=== PATIENT | male | born 1960 | race Caucasian/White ===

== ENCOUNTER 2016-10-28 12:08 | Emergency (ER) | payer OTHER ==
[2016-10-28 12:19] VITALS: BMI 22.6
[2016-10-28] MEDS ORDERED: Multivitamin (MVI) 10 ML, Thiamine 100 MG, Folic Acid 1 MG in Sodium Chloride 0.9% 1,00... IV STA (13:16)
[2016-10-28 13:33] LABS: BASO # 0.1 K/uL (0.0-0.2); BASO % 0.9 % (0.0-2.0); EOS # 0.3 K/uL (0.0-0.7); EOS % 3.7 % (0.0-4.0); HEMATOCRIT 29.7 % (35.0-51.0); LYMPH # 1.5 K/uL (1.0-4.3); LYMPH % 20.1 % (20.0-40.0); MEAN CORPUSCULAR HEMOGLOBIN 34.8 pg (27.0-31.0); MEAN CORPUSCULAR HGB CONC 32.9 g/dL (33.0-37.0); MEAN PLATELET VOLUME 8.2 fL (7.2-11.7); MONO # 1.1 K/uL (0.0-0.8); MONO % 14.1 % (0.0-10.0); RED CELL DISTRIBUTION WIDTH 16.1 % (11.5-14.5); WHITE BLOOD COUNT 7.7 K/uL (4.8-10.8)
[2016-10-28 13:37] LABS: CHLORIDE 97 mmol/L (98-107); POTASSIUM 3.4 mmol/L (3.6-5.2); SODIUM 137 mmol/L (132-148)
[2016-10-28 13:38] LABS: MEAN CELL VOLUME 105.9 fL (80.0-94.0)
[2016-10-28 13:39] LABS: AST/SGOT 125 U/L (17-59); BILIRUBIN,TOTAL 1.8 mg/dL (0.2-1.3); CARBON DIOXIDE 26 mmol/L (22-30); GFR AFRICAN-AMERICAN > 60
[2016-10-28 13:40] LABS: ALKALINE PHOSPHATASE 415 U/L (38-126); ALT/SGPT 36 U/L (21-72); BLOOD UREA NITROGEN 10 mg/dL (9-20); CALCIUM 8.5 mg/dl (8.6-10.4); GLUCOSE,RANDOM 82 mg/dL (75-110); MAGNESIUM 1.4 mg/dL (1.6-2.3); PHOSPHOROUS 3.4 mg/dL (2.5-4.5); TOTAL PROTEIN 8.1 g/dL (6.3-8.3)
[2016-10-28 13:41] LABS: ALCOHOL SERUM 155 mg/dl (0-10)
[2016-10-28] MEDS ORDERED: Magnesium Sulfate 1 gm in D5W 1 GM/100 ML BAG IVPB ONE ×2 (14:25→15:01)
[2016-10-28 14:35] LABS: RBC URINE 4 /hpf (0-3); URINE BILIRUBIN 1+ (NEGATIVE); URINE BLOOD NEGATIVE (NEGATIVE); URINE COLOR Amber (YELLOW); URINE GLUCOSE (UA) NORMAL (Normal); URINE KETONE 1+ mg/dL (NEGATIVE); URINE LEUKOCYTE ESTERASE NEG Leu/uL (Negative); URINE PROTEIN 2+ mg/dL (NEGATIVE); WBC URINE 6 /hpf (0-5)
[2016-10-28] MEDS ORDERED: Potassium Chloride 20 mEq ER Tab PO STA (14:41)
[2016-10-28] MEDS ORDERED: Potassium Chloride 20 mEq ER Tab PO ONE (15:01)
--- NOTE | 2016-10-28 15:06 | C.PDOC ---
History Of Present Illness Pt c/o b/l LE weakness and tingling in b/l toes. Time Seen by Provider: 10/28/16 13:04 Chief Complaint (Nursing): Weakness/Neurological Deficit History Per: Patient, Family () Onset/Duration Of Symptoms: Days (about 2 months), Gradual Current Symptoms Are (Timing): Still Present Seizure Or Post-ictal Symptoms: None Possible Causative Factor(s): Recent Alcohol Fall Associated With With Symptoms: No Injury As Result Of Fall Severity: Moderate Additional History Per: Prior Records - Symptoms Of CVA Recent Head Trauma: No Past Medical History Reviewed: Historical Data, Nursing Documentation, Vital Signs Vital Signs: Last Vital Signs Temp 99.4 F 10/28/16 12:19 Pulse 77 10/28/16 12:19 Resp 16 10/28/16 12:19 BP 115/76 10/28/16 12:19 Pulse Ox 97 10/28/16 15:08 - Medical History PMH: Hepatitis (C) Other PMH: Alcohol abuse Surgical History: No Surg Hx - [facility] DETOXIFICATION SERVICES FOR SUBSTANCE ABUSE TREATMENT (03/20/16) Family History: States: Unknown Family Hx - Social History Hx Tobacco Use: Yes Hx Alcohol Use: Yes Hx Substance Use: No - Immunization History Hx Tetanus Toxoid Vaccination: Yes Hx Influenza Vaccination: No Hx Pneumococcal Vaccination: No Review Of Systems Except As Marked, All Systems Reviewed And Found Negative. Constitutional: Negative for: Fever Cardiovascular: Negative for: Chest Pain Respiratory: Negative for: Shortness of Breath Gastrointestinal: Negative for: Vomiting, Abdominal Pain Genitourinary: Negative for: Dysuria, Incontinence Musculoskeletal: Negative for: Neck Pain, Back Pain, Leg Pain Skin: Negative for: Rash Neurological: Positive for: Numbness (tingling in b/l toes). Negative for: Seizures, Headache Physical Exam - Physical Exam Appears: No Acute Distress, Other (AOB) Skin: Warm, Dry, No Rash Head: Atraumatic, Normacephalic Eye(s): bilateral: PERRL, EOMI Neck: Normal ROM, No Midline Cervical Tenderness, No Step Off Deformity, Supple Chest: Symmetrical, No Deformity Cardiovascular: Rhythm Regular Respiratory: Normal Breath Sounds, No Accessory Muscle Use Gastrointestinal/Abdominal: Soft, No Tenderness Back: No CVA Tenderness, No Vertebral Tenderness Extremity: Normal ROM, No Pedal Edema, No Calf Tenderness, Capillary Refill (wnl ) Pulses: Left Dorsalis Pedis: Normal, Right Dorsalis Pedis: Normal Neurological/Psych: Oriented x3, Normal Motor, Normal Sensation ED Course And Treatment - Laboratory Results Result Diagrams: 10/28/16 13:25 10/28/16 13:25 Interpretation Of Abnormal: Mild hypomagnesemia and anemia. O2 Sat by Pulse Oximetry: 97 Pulse Ox Interpretation: Normal Progress Note: Pt feels much better and wants to go home. I offered him detox admission, but he declined. Reassessment Condition: Improved Progress - Interventions Interventions:: Observation, Intravenous fluid - Medications Administered Oral: Other (KCl. ) Subcutaneous: other (B12) Intravenous: Other (Mg. MVI. ) - Data Reviewed Data Reviewed: Lab, Old records - Patient Status Patient status: Mostly improved - Continuity of Care Discussed patient case with:: Patient, Family-HIPPA compliant, ED Nurse - Patient Plan Patient Plan: Discharge, F/U with PCP Disposition Counseled Patient/Family Regarding: Studies Performed, Diagnosis, Need For Followup, Rx Given, Smoking Cessation - Disposition Referrals: Dorothy CROWLEY,MD [place] [Medical Doctor] - Disposition: HOME/ ROUTINE Disposition Time: 16:34 Condition: IMPROVED Additional Instructions: Quit drinking and smoking. Eat a healthy diet. Follow up with your doctor this week for further evaluation and treatment. Return to the ER if you develop worsening of symptoms or if you have any other concerns. Prescriptions: Multivit with Iron-Minerals [Centravites 50 Plus] 1 each PO DAILY #30 tablet Instructions: Abuse of Alcohol (ED) - Clinical Impression Clinical Impression: Alcohol abuse
[2016-10-28 16:51] VITALS: BP 133/96; PULSE 94; RESP 18; TEMP 98.6; O2SAT 99
== END 2016-10-28 16:58 | disposition home or self-care (01) ==
LOC: C.ER 12:08
DX: F10.10 Alcohol abuse, uncomplicated (principal); Y90.6 Blood alcohol level of 120-199 mg/100 ml; E83.42 Hypomagnesemia
CPT/HCPCS: 80053; 80320; 80324; 80345; 80346; 80349; 80353; 80358; 80361; 81001; 82607; 83735; 83992; 84100; 85025; 85610; 85730; 96365; 96372; 99285; J3411; J3420; J3475; J7040

== ENCOUNTER 2017-03-03 16:57 | Inpatient (IN) | payer MEDICAID, OTHER ==
[2017-03-03 16:57] VITALS: BMI 22.6
[2017-03-03 19:00] LABS: BASO % 0.5 % (0.0-2.0); EOS # 0.2 K/uL (0.0-0.7); EOS % 2.8 % (0.0-4.0); LYMPH # 1.3 K/uL (1.0-4.3); LYMPH % 17.8 % (20.0-40.0); MEAN CELL VOLUME 94.9 fL (80.0-94.0); MEAN CORPUSCULAR HEMOGLOBIN 32.6 pg (27.0-31.0); MEAN CORPUSCULAR HGB CONC 34.4 g/dL (33.0-37.0); MEAN PLATELET VOLUME 8.1 fL (7.2-11.7); MONO # 1.5 K/uL (0.0-0.8); MONO % 19.2 % (0.0-10.0); NRBC % 0.3 % (0.0-2.0); RED CELL DISTRIBUTION WIDTH 16.3 % (11.5-14.5); WHITE BLOOD COUNT 7.6 K/uL (4.8-10.8)
[2017-03-03 19:06] LABS: CHLORIDE 100 mmol/L (98-107); POTASSIUM 3.1 mmol/L (3.6-5.2); SODIUM 139 mmol/L (132-148)
[2017-03-03 19:08] LABS: ALB/GLOB RATIO 1.1 (1.0-2.1); AST/SGOT 54 U/L (17-59); BILIRUBIN,TOTAL 1.6 mg/dL (0.2-1.3); CARBON DIOXIDE 25 mmol/L (22-30); GFR AFRICAN-AMERICAN > 60; TOTAL PROTEIN 7.3 g/dL (6.3-8.3)
[2017-03-03 19:09] LABS: ALCOHOL SERUM < 10 mg/dl (0-10); ALKALINE PHOSPHATASE 220 U/L (38-126); ALT/SGPT 31 U/L (21-72); BLOOD UREA NITROGEN 22 mg/dL (9-20); GLUCOSE,RANDOM 102 mg/dL (75-110)
[2017-03-03] MEDS ORDERED: Multivitamin (MVI) 10 ML, Thiamine 100 MG, Folic Acid 1 MG in Sodium Chloride 0.9% 1,00... IV ONE (19:12)
--- NOTE | 2017-03-03 19:32 | C.PDOC ---
History Of Present Illness 56 y/o male with Hx of chronic alcoholism presents to ED accompanied by for frequent falls at home secondary to legs feeling weak. Patient states he cannot balance and has no strength in legs. Patient reports he drinks 1 pint daily for years but stopped drinking 10 days and reports he has lost 100lbs marycarmen year secondary to loss of appetite. No other complaints at this time. Time Seen by Provider: 03/03/17 19:02 Chief Complaint (Nursing): Weakness/Neurological Deficit History Per: Patient History/Exam Limitations: no limitations Onset/Duration Of Symptoms: Days Current Symptoms Are (Timing): Still Present Past Medical History Reviewed: Historical Data, Nursing Documentation, Vital Signs Vital Signs: Last Vital Signs Temp 98 F 03/03/17 22:16 Pulse 95 H 03/03/17 22:16 Resp 13 03/03/17 22:16 BP 103/70 03/03/17 22:16 Pulse Ox 99 03/03/17 22:16 - Medical History PMH: Hepatitis (C) Surgical History: No Surg Hx - [facility] DETOXIFICATION SERVICES FOR SUBSTANCE ABUSE TREATMENT (03/20/16) Family History: States: No Known Family Hx - Social History Hx Tobacco Use: Yes Hx Alcohol Use: Yes Hx Substance Use: No - Immunization History Hx Tetanus Toxoid Vaccination: Yes Hx Influenza Vaccination: No Hx Pneumococcal Vaccination: No Review Of Systems Except As Marked, All Systems Reviewed And Found Negative. Constitutional: Negative for: Fever, Chills Cardiovascular: Negative for: Chest Pain Respiratory: Negative for: Shortness of Breath Gastrointestinal: Negative for: Nausea, Vomiting Musculoskeletal: Positive for: Leg Pain Skin: Negative for: Rash Neurological: Positive for: Weakness Physical Exam - Physical Exam Appears: Non-toxic, No Acute Distress, Other (Cachetic, wasted) Skin: Warm, Dry, No Rash, Other (Sallow) Head: Atraumatic, Normacephalic Eye(s): bilateral: Normal Inspection Oral Mucosa: Moist Neck: Normal ROM, Supple Chest: Symmetrical Cardiovascular: Rhythm Regular, No Murmur Respiratory: Normal Breath Sounds, No Rales, No Rhonchi, No Wheezing Gastrointestinal/Abdominal: Soft, No Tenderness, No Guarding, No Rebound Extremity: Capillary Refill (<2 seconds), Other (minimal mass on lower extremities bilateraol, very thin) Neurological/Psych: Oriented x3 ED Course And Treatment - Laboratory Results Result Diagrams: 03/03/17 18:53 03/03/17 18:53 Lab Interpretation: Abnormal (+ anemia, mixed microcytic , from baseline 12 to 10 to 8 today.) O2 Sat by Pulse Oximetry: 100 (RA) Pulse Ox Interpretation: Normal - Radiology CXR: Interpreted by Me CXR Interpretation: Yes: No Acute Disease - CT Scan/US Abdominal US Other Rad Studies (CT/US): Read By Radiologist, Radiology Report Reviewed CT/US Interpretation: IMPRESSION: Fatty infiltration of an enlarged liver. Borderline increased in the splenic size. Limited evaluation of the pancreas, secondary to overlying bowel gas. Otherwise, unremarkable sonographic evaluation of the abdomen, as detailed above. Reevaluation Time: 21:48 Reassessment Condition: Improved - Physician Consult Information Outcome Of Conversation: [id number]: d/w Dr. Gutierrez- Hospitalist- ok to obs. Medical Decision Making Medical Decision Making: Chronic alcoholism with severe weight loss of approx 100# in the past year had quit drinking approx 10 days ago from baseline 1pt vodka/day. Anemia Hgb 8 from baseline 12, probably upper GIB (guaiac +) due to alcoholic gastritis/variceal bleeds. Colonoscopic CA also high risk with underlying Hep C Transfuse overnight, repleat electrolytes, prophylax against Refeeding Syndrome. Disposition Doctor Will See Patient In The: Hospital Counseled Patient/Family Regarding: Studies Performed, Diagnosis - Disposition Disposition: HOSPITALIZED Disposition Time: 21:52 Condition: FAIR Forms: [facility] (Greek) - Clinical Impression Clinical Impression: Gait apraxia, Symptomatic anemia - Scribe Statement The provider has reviewed the documentation as recorded by the Monty Goodman All medical record entries made by the Gayeibizabel were at my direction and personally dictated by me. I have reviewed the chart and agree that the record accurately reflects my personal performance of the history, physical exam, medical decision making, and the department course for this patient. I have also personally directed, reviewed, and agree with the discharge instructions and disposition.
[2017-03-03] MEDS ORDERED: Sodium Chloride 0.9% 1,000 ML IV ONE (21:47)
--- NOTE | 2017-03-03 22:24 | US ---
EXAM: US Abdomen Complete CLINICAL HISTORY: 56 years old, male; Signs and symptoms; Other: ? Liver acohol severe weight loss; Additional info: ? Liver- alcohol, severe weight loss TECHNIQUE: Real-time ultrasound of the abdomen (complete) with image documentation. COMPARISON: No relevant prior studies available. FINDINGS: Liver: The liver is increased in echogenicity and size measuring 17 cm in longitudinal dimension. No intrahepatic bile duct dilation. Gallbladder: No acute findings. No gallstones. Common bile duct: No stones. No dilation, measuring 5 mm. Pancreas: Visualization of the pancreas is limited by overlying bowel gas. Right kidney: Unremarkable echogenicity and size measuring 10.5 x 4.2 x 4.3 cm. No hydronephrosis. Left Kidney: Unremarkable in echogenicity and size measuring 10.9 x 5.2 x 5.1 cm. No hydronephrosis. Spleen: Unremarkable in echogenicity and borderline increased in size measuring 10.1 cm in longitudinal dimension. Aorta: Unremarkable. Inferior vena cava: patent. IMPRESSION: Fatty infiltration of an enlarged liver. Borderline increased in the splenic size. Limited evaluation of the pancreas, secondary to overlying bowel gas. Otherwise, unremarkable sonographic evaluation of the abdomen, as detailed above.
--- NOTE | 2017-03-03 22:39 | CP.PCM.HP ---
<Cirilo Ford - Last Filed: 03/04/17 03:03> History of Present Illness - History of Present Illness History of Present Illness: PGY1 Medicine note for Dr. Gutierrez 56 year old male with a past medical history of Hepatitis C (due to IV drug abuse) and alcohol abuse presenting to the ED with complaints of weakness and frequent falls. The patient states that usually drinks one pint of Vodka per day but quit 10 days ago and has not had a drink since. The patient states that he noticed generalized weakness 2 weeks ago when he went to get out of bed one day. Patient reports that since that day he has gotten progressively more weak. He states that when he is walking his legs will give out and he will hit the floor. He denies lightheadedness, dizziness, loss of balance or tripping and states, "my legs just give out." He denies hitting his head or LOC with any falls. He states that he crumbles to the ground, landing on his knee and then onto his butt. He reports that it has gotten so bad that he can no longer walk from his bed to the bathroom, approximately 7 feet away, before his legs give out. Patient reports that he has not been eating well for a while now. "I don't really eat much anymore." Patient also reports unintentional weight loss over the past few months. He has been unable to know quantify the amount but states, "I definitely lost weight." Patient reports that 3 nights ago while he was watching TV, "Everything went red and black. Now it is all black." when talking about his vision. He states he has never had problems with his vision in the past other than purchasing eyeglasses at the [employer] store. He states that he did not do anything about it because he just figured his vision would get better and return to normal. He states that he currently can not see any detail but just sees objects. He states that he can see that there is a person standing in front of him, but he is unable to make out their face. He denies that his acute loss of vision has caused him to fall more frequently. "It has nothing to do with my vision, my legs just give out while I am walking." Patient also reports mild abdominal pain located in the epigastric region that radiates downward towards his umbilicus. He does not know how long this pain has been there and does not know if anything makes the pain better or worse. He states the reason that he did not seek medical attention sooner was due the fact that he does not have insurance, his is the only one who works and he did not have any money to pay for medical treatment sooner. Patient denies f/c, n/v, d/c, headaches. PMH: Hep C (due to IVDA) and alcohol abuse PSH: denies Family: in his 80's due to stroke, brother has HIV Social: current smoker (half pack per day, used to be pack per day), alcoholic ( quit 10 days ago, used to drink pint of vodka daily for many years), used to use pain pills, cocaine and heroin, which he injected. Reports he quit over 20 years ago because he just got tired of it. Patient reports he lives in a one bedroom boarding house with his . He does not work. Allergies: NKDA Present on Admission - Present on Admission Any Indicators Present on Admission: No Review of Systems - Constitutional Constitutional: Frequent Falls, Weight Loss, Weakness (generalized, greatest in LE b/l ). absent: Chills, Fever - EENT Eyes: Blurred Vision, Change in Vision, Loss of Vision Ears: absent: Tinnitus, Abnormal Hearing Nose/Mouth/Throat: absent: Epistaxis, Nasal Congestion, Dental Pain, Sore Throat , Neck Pain - Cardiovascular Cardiovascular: absent: Chest Pain, Diaphoresis, Dyspnea, Edema, Lightheadedness , Pedal Edema, Syncope - Respiratory Respiratory: absent: Cough, Dyspnea, Hemoptysis, Wheezing - Gastrointestinal Gastrointestinal: Abdominal Pain (epigastric region, radiates down towards umbilicus). absent: Diarrhea, Nausea Additional comments: He is unable to examine stool for color changes due to lack of vision - Genitourinary Genitourinary: absent: Dysuria, Hematuria, Urinary Frequency - Musculoskeletal Musculoskeletal: Muscle Weakness, Numbness (in distal portions of toes b/l), Tingling (in distal portions of toes b/l). absent: Back Pain, Muscle Cramps, Myalgias, Radiating Pain into Limb, Stiffness - Integumentary Integumentary: absent: Erythema, Non-Healing Lesions, Rash - Neurological Neurological: Numbness, Frequent Falls, Loss of Vision, Tingling, Weakness. absent: Dizziness, Headaches, Lack of Coordination, Restless Legs, Syncope - Psychiatric Psychiatric: absent: Abnormal Sleep Pattern, Anxiety, Depression - Endocrine Endocrine: Fatigue. absent: Excessive Sweating, Polydipsia, Polyuria Past Patient History - Infectious Disease Hx of Infectious Diseases: None - Past Medical History & Family History Past Medical History?: Yes - Past Social History Smoking Status: Heavy Smoker > 10 Cigarettes Daily - CARDIAC Hx Cardiac Disorders: No - PULMONARY Hx Respiratory Disorders: No - NEUROLOGICAL Hx Neurological Disorder: No - HEENT Hx HEENT Problems: No - ENDOCRINE/METABOLIC Hx Endocrine Disorders: No - HEMATOLOGICAL/ONCOLOGICAL Hx Blood Disorders: Yes (THROMBOCYTOPENIA) Hx Hepatitis C: Yes - INTEGUMENTARY Hx Dermatological Problems: No - MUSCULOSKELETAL/RHEUMATOLOGICAL Hx Musculoskeletal Disorders: No Hx Falls: No - GASTROINTESTINAL Hx Gastrointestinal Disorders: Yes (LIVER PROBLEM) Other/Comment: doublehernia - GENITOURINARY/GYNECOLOGICAL Hx Genitourinary Disorders: No - PSYCHIATRIC Hx Substance Use: No - SURGICAL HISTORY Hx Surgeries: Yes Other/Comment: colonoscopy - ANESTHESIA Hx Anesthesia: Yes Hx Anesthesia Reactions: No Meds Allergies/Adverse Reactions: Allergies Allergy/AdvReac Type Severity Reaction Status Date / Time No Known Allergies Allergy Verified 03/03/17 17:10 Physical Exam - Constitutional Appears: No Acute Distress, Unkempt, Older Than Stated Age, Chronically Ill - Head Exam Head Exam: ATRAUMATIC, NORMOCEPHALIC - Eye Exam Eye Exam: EOMI, PERRL, Scleral icterus. absent: Nystagmus Pupil Exam: NORMAL ACCOMODATION, PERRL - ENT Exam ENT Exam: Mucous Membranes Dry, Normal External Ear Exam - Neck Exam Neck exam: Positive for: Full Rom, Normal Inspection. Negative for: Lymphadenopathy, Meningismus, Tenderness - Respiratory Exam Respiratory Exam: Clear to Auscultation Bilateral, NORMAL BREATHING PATTERN. absent: Accessory Muscle Use, Rales, Wheezes, Respiratory Distress - Cardiovascular Exam Cardiovascular Exam: REGULAR RHYTHM, +S1, +S2. absent: JVD, Rubs - GI/Abdominal Exam GI & Abdominal Exam: Hernia (reducable, "I have had that for years"), Normal Bowel Sounds, Soft, Tenderness (RUQ, LUQ - most prominent in epigastric region) . absent: Distended, Firm, Guarding, Pulsatile Mass, Rebound, Rigid - Rectal Exam Additional comments: +occult stool in ED - Extremities Exam Extremities exam: Positive for: normal capillary refill, normal inspection, pedal pulses present. Negative for: calf tenderness, pedal edema, tenderness Additional comments: Pt reports numbness/tingling in the distal portions of all 10 toes. Denies altered sensation throughout rest of LE and full body exam. - Back Exam Back exam: NORMAL INSPECTION. absent: CVA tenderness (L), CVA tenderness (R), muscle spasm, paraspinal tenderness, tenderness, vertebral tenderness Additional comments: Multiples bruises of different stages of healing, most prominent is located on back portion of right shoulder. Patient denies any pain to palpation, and has full ROM. - Neurological Exam Neurological exam: Alert, CN II-XII Intact, Oriented x3 - Expanded Neurological Exam Expanded Neurological exam: Protecting the Airway Patient oriented to: person, place, time Cranial nerves: EOM's Intact: Normal, Facial Palsey w/Forehead Movement: Normal , Facial Palsey w/o Forehead Movement: Normal, Facial Sensation: Normal, Nystagmus: Normal, Tongue Deviation: Normal Cerebellar Function: Finger to Nose: Normal (difficult to assess due to patient has decreased vision and reported difficulty seeing where he needed to touch.), Heel to [place]: Abnormal Left, Abnormal Right (increased movement noticed as heel moves to distal end of collins b/l) Upper motor neuron: Bradly Neglect: Normal, Pronator Drift: Normal Sensory exam: Lower Extremity Light Touch: Normal, Upper Extremity Light Touch: Normal Neuro motor strength exam: Left Upper Extremity: 5, Right Upper Extremity: 5, Left Lower Extremity: 5, Right Lower Extremity: 5 Coma Scale Eye Opening: SPONTANEOUS Coma Scale Motor Response: OBEYS COMMANDS Coma Scale Verbal: Oriented Coma Scale Total: 15 - Skin Skin Exam: Dry, Normal Color Additional comments: Appears dry, skin tenting is slow to return to normal. patient has multiple bruises in different stages of healing, consistent with hx of multiple falls over past two weeks. Results - Vital Signs Recent Vital Signs: Last Vital Signs Temp 98 F 03/03/17 22:16 Pulse 95 H 03/03/17 22:16 Resp 13 03/03/17 22:16 BP 103/70 03/03/17 22:16 Pulse Ox 100 03/03/17 22:28 - Labs Result Diagrams: 03/03/17 18:53 03/03/17 18:53 Labs: Laboratory Results - last 24 hr 03/03/17 03/03/17 03/03/17 18:53 18:53 18:53 WBC 7.6 RBC 2.43 L Hgb 7.9 L Hct 23.0 L MCV 94.9 H D MCH 32.6 H MCHC 34.4 RDW 16.3 H Plt Count 162 MPV 8.1 Neut % (Auto) 59.7 Lymph % (Auto) 17.[address] % (Auto) 19.2 H Eos % (Auto) 2.8 Baso % (Auto) 0.5 Neut # 4.5 Lymph # 1.3 [place] # 1.5 H Eos # 0.2 Baso # 0.0 Sodium 139 Potassium 3.1 L Chloride 100 Carbon Dioxide 25 Anion Gap 16 Creatinine 0.6 L Est GFR ( Amer) > 60 Est GFR (Non-Af Amer) > 60 Calcium 9.0 Total Bilirubin 1.6 H AST 54 Ammonia < 9 L Total Protein 7.3 Albumin 3.8 Globulin 3.4 Albumin/Globulin Ratio 1.1 Stool Occult Blood Alcohol, Quantitative < 10 Blood Type Antibody Screen 03/03/17 03/03/17 21:15 21:33 WBC RBC Hgb Hct MCV MCH MCHC RDW Plt Count MPV Neut % (Auto) Lymph % (Auto) [place] % (Auto) Eos % (Auto) Baso % (Auto) Neut # Lymph # [place] # Eos # Baso # Sodium Potassium Chloride Carbon Dioxide Anion Gap Creatinine Est GFR ( Amer) Est GFR (Non-Af Amer) Calcium Total Bilirubin AST Ammonia Total Protein Albumin Globulin Albumin/Globulin Ratio Stool Occult Blood Positive H Alcohol, Quantitative Blood Type O POSITIVE Antibody Screen Negative Assessment & Plan - Assessment and Plan (Free Text) Assessment: Symptomatic Anemia - possible due to GI bleed - Hgb 7.9; Hct 23.0 MCV 94.9 upon admission - Fecal Occult Blood + in ED - Consult GI, Dr. Harper - Help appreciated - Transfused one unit of pRBC - f/u post transfusion CBC - Head CT 03/04/17 - Atrophy and small vessel disease, no bleed - Iron - 117; TIBC 323; %sat 36 - normal - TSH - 3.33 - normal - Vit. B12 - 502 - normal - Vitamin D <12.8 - low (norm 30 - 100) Vision Loss - Head CT 03/04/17 - Atrophy and small vessel disease, no bleed Dehydration - Pt appears clinically dry, admits poor oral intake over previous weeks - Given 1 L bolus of NS w/ Multivitamin, Thiamine and Folic Acid - Given 1 L bolus of NS - Started on NS @100 ml/hr - UA - April color, 1+protein, 1+ketones, 2+Bilirubin, 20 WBC, Occ Calcium Oxalate Crystals, Few Bacteria, Hyaline Casts 11-20 Frequent Falls/weakness - possibly due to intoxication, malnutrition, electrolyte abnormalities, dehydration or anemia - Head CT 03/04/17 - Atrophy and small vessel disease, no bleed - UDS - positive for Cannabinoids, otherwise negative. - f/u AM labs - Fall protocol Alcoholism - Given 1 L bolus of NS w/ Multivitamin, Thiamine and Folic Acid - Started on Folic Acid 1 mg PO daily - Started on Multivitamin 1 tab PO daily - Started on Thiamine 100 mg PO daily - CIWA protocol Electrolyte Abnormalities - Potassium 3.1 - 40 meq PO Q4H for total of 2 doses - Magnesium 1.5 - given 2 gms IVPB - Phosphorus 1.3 - given 15mmol IVPB over 6 hours - will continue to monitor with AM labs Prophylactic Care - Protonix 40mg PO daily - SCDs - Contraindication for anticoagulation at this time due to positive Fecal Occult Blood Case discussed with Dr. Brenda Ford PGY1 <Harjinder Gutierrez P - Last Filed: 03/04/17 07:41> Results - Vital Signs Recent Vital Signs: Last Vital Signs Temp 98.5 F 03/04/17 04:00 Pulse 83 03/04/17 04:00 Resp 16 03/04/17 04:00 BP 103/70 03/04/17 04:00 Pulse Ox 98 03/04/17 04:00 - Labs Result Diagrams: 03/03/17 18:53 03/03/17 18:53 Labs: Laboratory Results - last 24 hr 03/03/17 03/03/17 03/03/17 18:53 18:53 18:53 WBC 7.6 RBC 2.43 L Hgb 7.9 L Hct 23.0 L MCV 94.9 H D MCH 32.6 H MCHC 34.4 RDW 16.3 H Plt Count 162 MPV 8.1 Neut % (Auto) 59.7 Lymph % (Auto) 17.[address] % (Auto) 19.2 H Eos % (Auto) 2.8 Baso % (Auto) 0.5 Neut # 4.5 Lymph # 1.3 [place] # 1.5 H Eos # 0.2 Baso # 0.0 PT INR APTT Sodium 139 Potassium 3.1 L Chloride 100 Carbon Dioxide 25 Anion Gap 16 Creatinine 0.6 L Est GFR ( Amer) > 60 Est GFR (Non-Af Amer) > 60 Calcium 9.0 Phosphorus Magnesium Iron TIBC % Saturation Total Bilirubin 1.6 H AST 54 Ammonia < 9 L Total Protein 7.3 Albumin 3.8 Globulin 3.4 Albumin/Globulin Ratio 1.1 Vitamin B12 25-OH Vitamin D Total Folate TSH 3rd Generation Urine Color Urine Clarity Urine pH Ur Specific [place] Urine Protein Urine Glucose (UA) Urine Ketones Urine Blood Urine Nitrate Urine Bilirubin Urine Urobilinogen Ur Leukocyte Esterase Urine WBC (Auto) Urine RBC (Auto) Ur Squamous Epith Cells Calcium Oxalate Crystal Urine Bacteria Hyaline Casts Stool Occult Blood Urine Opiates Screen Urine Methadone Screen Ur Barbiturates Screen Ur Phencyclidine Scrn Ur Amphetamines Screen U Benzodiazepines Scrn U Oth Cocaine Metabols U Cannabinoids Screen Alcohol, Quantitative < 10 Blood Type Antibody Screen 03/03/17 03/03/17 03/03/17 21:15 21:33 22:30 WBC RBC Hgb Hct MCV MCH MCHC RDW Plt Count MPV Neut % (Auto) Lymph % (Auto) [place] % (Auto) Eos % (Auto) Baso % (Auto) Neut # Lymph # [place] # Eos # Baso # PT INR APTT Sodium Potassium Chloride Carbon Dioxide Anion Gap Creatinine Est GFR ( Amer) Est GFR (Non-Af Amer) Calcium Phosphorus Magnesium Iron TIBC % Saturation Total Bilirubin AST Ammonia Total Protein Albumin Globulin Albumin/Globulin Ratio Vitamin B12 25-OH Vitamin D Total Folate TSH 3rd Generation Urine Color April Urine Clarity Hazy Urine pH 5.0 Ur Specific [place] 1.025 Urine Protein 1+ H Urine Glucose (UA) Normal Urine Ketones 1+ H Urine Blood Negative Urine Nitrate Negative Urine Bilirubin 2+ H Urine Urobilinogen 4.0 Ur Leukocyte Esterase Trace Urine WBC (Auto) 20 H Urine RBC (Auto) 3 Ur Squamous Epith Cells 1 Calcium Oxalate Crystal Occ H Urine Bacteria Few H Hyaline Casts 11-20 H Stool Occult Blood Positive H Urine Opiates Screen Urine Methadone Screen Ur Barbiturates Screen Ur Phencyclidine Scrn Ur Amphetamines Screen U Benzodiazepines Scrn U Oth Cocaine Metabols U Cannabinoids Screen Alcohol, Quantitative Blood Type O POSITIVE Antibody Screen Negative 03/03/17 03/04/17 03/04/17 22:30 01:05 01:05 WBC RBC Hgb Hct MCV MCH MCHC RDW Plt Count MPV Neut % (Auto) Lymph % (Auto) [place] % (Auto) Eos % (Auto) Baso % (Auto) Neut # Lymph # [place] # Eos # Baso # PT INR APTT Sodium Potassium Chloride Carbon Dioxide Anion Gap Creatinine Est GFR ( Amer) Est GFR (Non-Af Amer) Calcium Phosphorus 1.3 L Magnesium 1.5 L Iron TIBC % Saturation Total Bilirubin AST Ammonia Total Protein Albumin Globulin Albumin/Globulin Ratio Vitamin B12 502 25-OH Vitamin D Total < 12.8 L Folate > 20.0 TSH 3rd Generation 3.33 Urine Color Urine Clarity Urine pH Ur Specific [place] Urine Protein Urine Glucose (UA) Urine Ketones Urine Blood Urine Nitrate Urine Bilirubin Urine Urobilinogen Ur Leukocyte Esterase Urine WBC (Auto) Urine RBC (Auto) Ur Squamous Epith Cells Calcium Oxalate Crystal Urine Bacteria Hyaline Casts Stool Occult Blood Urine Opiates Screen Negative Urine Methadone Screen Negative Ur Barbiturates Screen Negative Ur Phencyclidine Scrn Negative Ur Amphetamines Screen Negative U Benzodiazepines Scrn Negative U Oth Cocaine Metabols Negative U Cannabinoids Screen Positive Alcohol, Quantitative Blood Type Antibody Screen 03/04/17 03/04/17 02:26 04:00 WBC RBC Hgb Hct MCV MCH MCHC RDW Plt Count MPV Neut % (Auto) Lymph % (Auto) [place] % (Auto) Eos % (Auto) Baso % (Auto) Neut # Lymph # [place] # Eos # Baso # PT 11.5 INR 1.0 APTT 36 H Sodium Potassium Chloride Carbon Dioxide Anion Gap Creatinine Est GFR ( Amer) Est GFR (Non-Af Amer) Calcium Phosphorus Magnesium Iron 117 TIBC 323 % Saturation 36 Total Bilirubin AST Ammonia Total Protein Albumin Globulin Albumin/Globulin Ratio Vitamin B12 25-OH Vitamin D Total Folate TSH 3rd Generation Urine Color Urine Clarity Urine pH Ur Specific [place] Urine Protein Urine Glucose (UA) Urine Ketones Urine Blood Urine Nitrate Urine Bilirubin Urine Urobilinogen Ur Leukocyte Esterase Urine WBC (Auto) Urine RBC (Auto) Ur Squamous Epith Cells Calcium Oxalate Crystal Urine Bacteria Hyaline Casts Stool Occult Blood Urine Opiates Screen Urine Methadone Screen Ur Barbiturates Screen Ur Phencyclidine Scrn Ur Amphetamines Screen U Benzodiazepines Scrn U Oth Cocaine Metabols U Cannabinoids Screen Alcohol, Quantitative Blood Type Antibody Screen Attending/Attestation - Attestation I have personally seen and examined this patient.: Yes I have fully participated in the care of the patient.: Yes I have reviewed all pertinent clinical information: Yes Notes (Text): Assessment Symptomatic anemia Positive stool guiac Alcoholism stopped 10 days back currently not in withdrawal, patient has slight reduced coordination in both legs Dehydrated so corrected hemoglobin may be lower Sudden decline in vision b/l 4-5 days back currently limited to hand waving about 4-5 feet, with identification of color, patient has calcium oxalate crystals in the urine, no anion gap acidosis raises some suspicion that he might had remote or low dose abuse or exposure of ethylene glycol Fall due to combination of above H/o Hep C due to prior iv cocaine and heroin use Malnutrition Plan Head CT done last night didnt show any acute finding other than atrophy Thiamime, MVT, Folate IVF Replace mag, potassium, phos PRBC GI consult PPI Avoid anticoagulation due to anemia and positive haemoccult Will check osmolar gap, patient doesnt has anion gap, clinically doesnt have enough evidence of acute ethylene glycol poisoning, as urine show calcium oxylate crystal and has vision abnormality, he would need full vision and retinal exam inpt vs out patient See orders for detail.
[2017-03-03 22:49] LABS: RBC URINE 3 /hpf (0-3); URINE BACTERIA FEW (<OCC); URINE BILIRUBIN 2+ (NEGATIVE); URINE BLOOD NEGATIVE (NEGATIVE); URINE CALCIUM OXALATE CRYSTALS OCC /hpf (<OCC); URINE COLOR Amber (YELLOW); URINE GLUCOSE (UA) NORMAL (Normal); URINE KETONE 1+ mg/dL (NEGATIVE); URINE LEUKOCYTE ESTERASE TRACE Leu/uL (Negative); URINE PROTEIN 1+ mg/dL (NEGATIVE); WBC URINE 20 /hpf (0-5)
[2017-03-03] MEDS: Sodium Chloride 0.9% 1,000 ML IV SCH (23:35)
[2017-03-04] MEDS ORDERED: Potassium Chloride 20 mEq ER Tab PO SCH
[2017-03-04 01:28] LABS: MAGNESIUM 1.5 mg/dL (1.6-2.3); PHOSPHOROUS 1.3 mg/dL (2.5-4.5)
--- NOTE | 2017-03-04 01:28 | CT ---
EXAM: CT Head Without Intravenous Contrast EXAM DATE/TIME: 03/04/2017 12:00 AM CLINICAL HISTORY: 56 years old, male; Pain and signs and symptoms; Other: Loss vision; Headache; Additional info: Vision loss TECHNIQUE: Axial computed tomography images of the head/brain without intravenous contrast. All CT scans at this facility use one or more dose reduction techniques, viz.: automated exposure control; ma/kV adjustment per patient size (including targeted exams where dose is matched to indication; i.e. head); or iterative reconstruction technique. Sagittal reformatted images were created and reviewed. COMPARISON: There are no prior studies for comparison. FINDINGS: Brain: There is dilatation of sulci gyri and ventricles. There is no midline shift. There is decreased attenuation in periventricular white matter. There are no focal masses. There are no focal hemorrhages. Ross-white differentiation is visualized. Ventricles: See above. Bones: Cranial vault is intact. Soft tissues: unremarkable Sinuses: There is no acute sinusitis. Ears and mastoids: Middle ears and mastoids are unremarkable. Orbits: Orbital contents are unremarkable. IMPRESSION: Atrophy and small vessel disease, no bleed
[2017-03-04 01:58] LABS: THYROID STIMULATING HORMONE 3.33 mIU/L (0.46-4.68)
[2017-03-04] MEDS ORDERED: Potassium Phosphate 15 MMOLE in Sodium Chloride 0.9% 250 ML IVPB ONE (01:58)
[2017-03-04] MEDS ORDERED: Magnesium Sulfate 1 gm in D5W 1 GM/100 ML BAG IVPB SCH (02:15)
[2017-03-04 02:33] LABS: IRON 117 ug/dL (49-181)
[2017-03-04 02:33] LABS: FOLATE > 20.0 ng/mL
[2017-03-04] MEDS ORDERED: Potassium Chloride 20 mEq ER Tab PO ONE (05:46)
[2017-03-04] MEDS ORDERED: Ergocalciferol 50,000 Intl Units Cap PO SCH (08:15)
--- NOTE | 2017-03-04 09:04 | CP.PCM.CON ---
History of Present Illness - History of Present Illness History of Present Illness: 56 yo male admitted with weakness and possible near syncope found to have hgb=7 and fecal occult blood + in ED. Had EGD done last year showing gastritis but no varices. Admits to heavy 1+ pint of alcohol per day last drink 11 days ago. Has known HCV from prior IVDA. No melena or fresh bleeding. No overt GI bleeding. No N//V/C/D. Past Patient History - Infectious Disease Hx of Infectious Diseases: None - Past Medical History & Family History Past Medical History?: Yes - Past Social History Smoking Status: Heavy Smoker > 10 Cigarettes Daily Alcohol: > 2 Drinks/Day Drugs: Other - CARDIAC Hx Cardiac Disorders: No - PULMONARY Hx Respiratory Disorders: No - NEUROLOGICAL Hx Neurological Disorder: No - HEENT Hx HEENT Problems: No - ENDOCRINE/METABOLIC Hx Endocrine Disorders: No - HEMATOLOGICAL/ONCOLOGICAL Hx Blood Disorders: Yes (THROMBOCYTOPENIA) Hx Hepatitis C: Yes Hx Human Immunodeficiency Virus (HIV): No - INTEGUMENTARY Hx Dermatological Problems: No - MUSCULOSKELETAL/RHEUMATOLOGICAL Hx Musculoskeletal Disorders: No Hx Falls: No - GASTROINTESTINAL Hx Gastrointestinal Disorders: Yes (LIVER PROBLEM) Hx Gastritis: Yes Other/Comment: doublehernia - GENITOURINARY/GYNECOLOGICAL Hx Genitourinary Disorders: No - PSYCHIATRIC Hx Substance Use: No - SURGICAL HISTORY Hx Surgeries: Yes Other/Comment: colonoscopy - ANESTHESIA Hx Anesthesia: Yes Hx Anesthesia Reactions: No Meds Allergies/Adverse Reactions: Allergies Allergy/AdvReac Type Severity Reaction Status Date / Time No Known Allergies Allergy Verified 03/03/17 17:10 - Medications Medications: Current Medications Ergocalciferol (Drisdol 50,000 Intl Units Cap) 1 cap PO Q7D [facility] Folic Acid (Folic Acid) 1 mg PO DAILY [facility] Sodium Chloride (Sodium Chloride 0.9%) 1,000 mls @ 100 mls/hr IV .Q10H [facility] Last Admin: 03/03/17 23:35 Dose: 100 mls/hr Multivitamins (Hexavitamin) 1 tab PO DAILY [facility] Pantoprazole Sodium (Protonix Ec Tab) 40 mg PO DAILY [facility] Thiamine HCl (Vitamin B1 Tab) 100 mg PO DAILY [facility] Physical Exam - Constitutional Appears: No Acute Distress Additional comments: Unkempt - Head Exam Head Exam: ATRAUMATIC, NORMOCEPHALIC - Eye Exam Eye Exam: EOMI, PERRL - Respiratory Exam Respiratory Exam: NORMAL BREATHING PATTERN - Cardiovascular Exam Cardiovascular Exam: REGULAR RHYTHM - GI/Abdominal Exam GI & Abdominal Exam: Normal Bowel Sounds, Soft. absent: Tenderness - Rectal Exam Rectal Exam: NORMAL INSPECTION - Extremities Exam Extremities exam: Positive for: pedal edema. Negative for: calf tenderness, joint swelling, tenderness - Neurological Exam Neurological exam: Alert, Oriented x3 Additional comments: no asterixis - Psychiatric Exam Psychiatric exam: Normal Affect, Normal Mood Results - Vital Signs Recent Vital Signs: Last Vital Signs Temp 98.7 F 03/04/17 07:50 Pulse 76 03/04/17 07:50 Resp 16 03/04/17 07:50 BP 104/73 03/04/17 07:50 Pulse Ox 100 03/04/17 07:50 - Labs Result Diagrams: 03/03/17 18:53 03/03/17 18:53 Labs: Laboratory Results - last 24 hr 03/03/17 03/03/17 03/03/17 18:53 18:53 18:53 WBC 7.6 RBC 2.43 L Hgb 7.9 L Hct 23.0 L MCV 94.9 H D MCH 32.6 H MCHC 34.4 RDW 16.3 H Plt Count 162 MPV 8.1 Neut % (Auto) 59.7 Lymph % (Auto) 17.8 L [place] % (Auto) 19.2 H Eos % (Auto) 2.8 Baso % (Auto) 0.5 Neut # 4.5 Lymph # 1.3 [place] # 1.5 H Eos # 0.2 Baso # 0.0 PT INR APTT Sodium 139 Potassium 3.1 L Chloride 100 Carbon Dioxide 25 Anion Gap 16 Creatinine 0.6 L Est GFR ( Amer) > 60 Est GFR (Non-Af Amer) > 60 Calcium 9.0 Phosphorus Magnesium Iron TIBC % Saturation Total Bilirubin 1.6 H AST 54 Ammonia < 9 L Total Protein 7.3 Albumin 3.8 Globulin 3.4 Albumin/Globulin Ratio 1.1 Vitamin B12 25-OH Vitamin D Total Folate TSH 3rd Generation Urine Color Urine Clarity Urine pH Ur Specific [place] Urine Protein Urine Glucose (UA) Urine Ketones Urine Blood Urine Nitrate Urine Bilirubin Urine Urobilinogen Ur Leukocyte Esterase Urine WBC (Auto) Urine RBC (Auto) Ur Squamous Epith Cells Calcium Oxalate Crystal Urine Bacteria Hyaline Casts Stool Occult Blood Urine Opiates Screen Urine Methadone Screen Ur Barbiturates Screen Ur Phencyclidine Scrn Ur Amphetamines Screen U Benzodiazepines Scrn U Oth Cocaine Metabols U Cannabinoids Screen Alcohol, Quantitative < 10 Blood Type Antibody Screen 03/03/17 03/03/17 03/03/17 21:15 21:33 22:30 WBC RBC Hgb Hct MCV MCH MCHC RDW Plt Count MPV Neut % (Auto) Lymph % (Auto) [place] % (Auto) Eos % (Auto) Baso % (Auto) Neut # Lymph # [place] # Eos # Baso # PT INR APTT Sodium Potassium Chloride Carbon Dioxide Anion Gap Creatinine Est GFR ( Amer) Est GFR (Non-Af Amer) Calcium Phosphorus Magnesium Iron TIBC % Saturation Total Bilirubin AST Ammonia Total Protein Albumin Globulin Albumin/Globulin Ratio Vitamin B12 25-OH Vitamin D Total Folate TSH 3rd Generation Urine Color April Urine Clarity Hazy Urine pH 5.0 Ur Specific [place] 1.025 Urine Protein 1+ H Urine Glucose (UA) Normal Urine Ketones 1+ H Urine Blood Negative Urine Nitrate Negative Urine Bilirubin 2+ H Urine Urobilinogen 4.0 Ur Leukocyte Esterase Trace Urine WBC (Auto) 20 H Urine RBC (Auto) 3 Ur Squamous Epith Cells 1 Calcium Oxalate Crystal Occ H Urine Bacteria Few H Hyaline Casts 11-20 H Stool Occult Blood Positive H Urine Opiates Screen Urine Methadone Screen Ur Barbiturates Screen Ur Phencyclidine Scrn Ur Amphetamines Screen U Benzodiazepines Scrn U Oth Cocaine Metabols U Cannabinoids Screen Alcohol, Quantitative Blood Type O POSITIVE Antibody Screen Negative 03/03/17 03/04/17 03/04/17 22:30 01:05 01:05 WBC RBC Hgb Hct MCV MCH MCHC RDW Plt Count MPV Neut % (Auto) Lymph % (Auto) [place] % (Auto) Eos % (Auto) Baso % (Auto) Neut # Lymph # [place] # Eos # Baso # PT INR APTT Sodium Potassium Chloride Carbon Dioxide Anion Gap Creatinine Est GFR ( Amer) Est GFR (Non-Af Amer) Calcium Phosphorus 1.3 L Magnesium 1.5 L Iron TIBC % Saturation Total Bilirubin AST Ammonia Total Protein Albumin Globulin Albumin/Globulin Ratio Vitamin B12 502 25-OH Vitamin D Total < 12.8 L Folate > 20.0 TSH 3rd Generation 3.33 Urine Color Urine Clarity Urine pH Ur Specific [place] Urine Protein Urine Glucose (UA) Urine Ketones Urine Blood Urine Nitrate Urine Bilirubin Urine Urobilinogen Ur Leukocyte Esterase Urine WBC (Auto) Urine RBC (Auto) Ur Squamous Epith Cells Calcium Oxalate Crystal Urine Bacteria Hyaline Casts Stool Occult Blood Urine Opiates Screen Negative Urine Methadone Screen Negative Ur Barbiturates Screen Negative Ur Phencyclidine Scrn Negative Ur Amphetamines Screen Negative U Benzodiazepines Scrn Negative U Oth Cocaine Metabols Negative U Cannabinoids Screen Positive Alcohol, Quantitative Blood Type Antibody Screen 03/04/17 03/04/17 02:26 04:00 WBC RBC Hgb Hct MCV MCH MCHC RDW Plt Count MPV Neut % (Auto) Lymph % (Auto) [place] % (Auto) Eos % (Auto) Baso % (Auto) Neut # Lymph # [place] # Eos # Baso # PT 11.5 INR 1.0 APTT 36 H Sodium Potassium Chloride Carbon Dioxide Anion Gap Creatinine Est GFR ( Amer) Est GFR (Non-Af Amer) Calcium Phosphorus Magnesium Iron 117 TIBC 323 % Saturation 36 Total Bilirubin AST Ammonia Total Protein Albumin Globulin Albumin/Globulin Ratio Vitamin B12 25-OH Vitamin D Total Folate TSH 3rd Generation Urine Color Urine Clarity Urine pH Ur Specific [place] Urine Protein Urine Glucose (UA) Urine Ketones Urine Blood Urine Nitrate Urine Bilirubin Urine Urobilinogen Ur Leukocyte Esterase Urine WBC (Auto) Urine RBC (Auto) Ur Squamous Epith Cells Calcium Oxalate Crystal Urine Bacteria Hyaline Casts Stool Occult Blood Urine Opiates Screen Urine Methadone Screen Ur Barbiturates Screen Ur Phencyclidine Scrn Ur Amphetamines Screen U Benzodiazepines Scrn U Oth Cocaine Metabols U Cannabinoids Screen Alcohol, Quantitative Blood Type Antibody Screen Assessment & Plan (1) Iron deficiency anemia due to chronic blood loss Assessment and Plan: Transfuse, Iron studies, B12, folate Will plan for EGD today to r/o varices and colonoscopy to follow when H/H is stable. Status: Acute (2) Fecal occult blood test positive Assessment and Plan: as above Monitor for overt bleeding Status: Acute (3) Hepatitis C infection Assessment and Plan: Check PCR, Genotype, AFP Possible candidate for DAA as outpatient through [facility] when stable. Status: Acute
--- NOTE | 2017-03-04 09:17 | RAD ---
HISTORY: Admission film COMPARISON: No prior. FINDINGS: LUNGS: No active pulmonary disease. PLEURA: No significant pleural effusion identified, no pneumothorax apparent. CARDIOVASCULAR: Normal. OSSEOUS STRUCTURES: Degenerative changes in the spine and shoulders. VISUALIZED UPPER ABDOMEN: Normal. OTHER FINDINGS: None. IMPRESSION: No active disease.
[2017-03-04] MEDS ORDERED: Etomidate 20 mg/10ml Inj IV ONE (09:38)
--- NOTE | 2017-03-04 09:53 | CP.PCM.PN ---
Subjective - Date & Time of Evaluation Date of Evaluation: 03/04/17 Time of Evaluation: 09:52 - Subjective Subjective: EGD: Mild gastritis No Varices, ulcers or bleeding. No biopsies taken. Rec/ Colonoscopy prep for colonoscopy in am if clinically stable Further HCV work up as ordered. Objective - Vital Signs/Intake and Output Vital Signs (last 24 hours): Temp Pulse Resp BP Pulse Ox 98.7 F 76 16 104/73 100 03/04/17 07:50 03/04/17 07:50 03/04/17 07:50 03/04/17 07:50 03/04/17 07:50 - Medications Medications: Current Medications Bisacodyl (Dulcolax) 10 mg PO ONCE ONE Stop: 03/04/17 17:01 Ergocalciferol (Drisdol 50,000 Intl Units Cap) 1 cap PO Q7D [facility] Folic Acid (Folic Acid) 1 mg PO DAILY [facility] Sodium Chloride (Sodium Chloride 0.9%) 1,000 mls @ 100 mls/hr IV .Q10H [facility] Last Admin: 03/03/17 23:35 Dose: 100 mls/hr Multivitamins (Hexavitamin) 1 tab PO DAILY [facility] Pantoprazole Sodium (Protonix Ec Tab) 40 mg PO DAILY [facility] Polyethylene Glycol/Electrolytes (Golytely) 4,000 ml PO ONCE ONE Stop: 03/04/17 19:01 Thiamine HCl (Vitamin B1 Tab) 100 mg PO DAILY [facility] - Labs Labs: 03/03/17 18:53 03/03/17 18:53 PT 11.5 SECONDS (9.7-12.2) 03/04/17 04:00 INR 1.0 03/04/17 04:00 APTT 36 SECONDS (21-34) H 03/04/17 04:00 Assessment and Plan (1) Iron deficiency anemia due to chronic blood loss Status: Acute (2) Fecal occult blood test positive Status: Acute (3) Hepatitis C infection Status: Acute
[2017-03-04] MEDS ORDERED: Pantoprazole 20 mg EC Tab PO SCH ×2 (10:00)
[2017-03-04] MEDS ORDERED: Multiple Vitamins Oral Solution PO SCH (10:00)
[2017-03-04] MEDS ORDERED: Multiple Vitamins Tab PO SCH (10:00)
[2017-03-04 11:32] LABS: BASO # 0.1 K/uL (0.0-0.2); BASO % 2.1 % (0.0-2.0); EOS # 0.1 K/uL (0.0-0.7); EOS % 2.7 % (0.0-4.0); HEMATOCRIT 23.4 % (35.0-51.0); LYMPH % 20.4 % (20.0-40.0); MEAN CELL VOLUME 95.3 fL (80.0-94.0); MEAN CORPUSCULAR HEMOGLOBIN 32.1 pg (27.0-31.0); MEAN CORPUSCULAR HGB CONC 33.6 g/dL (33.0-37.0); MEAN PLATELET VOLUME 8.2 fL (7.2-11.7); MONO # 0.8 K/uL (0.0-0.8); MONO % 16.2 % (0.0-10.0); NRBC % 0.2 % (0.0-2.0); RED CELL DISTRIBUTION WIDTH 15.5 % (11.5-14.5); WHITE BLOOD COUNT 5.1 K/uL (4.8-10.8)
[2017-03-04 11:40] LABS: CHLORIDE 109 mmol/L (98-107); POTASSIUM 3.5 mmol/L (3.6-5.2); SODIUM 141 mmol/L (132-148)
[2017-03-04 11:42] LABS: BILIRUBIN,TOTAL 1.5 mg/dL (0.2-1.3); GFR AFRICAN-AMERICAN > 60
[2017-03-04 11:43] LABS: ALKALINE PHOSPHATASE 195 U/L (38-126); ALT/SGPT 27 U/L (21-72); AST/SGOT 42 U/L (17-59); BLOOD UREA NITROGEN 16 mg/dL (9-20); CALCIUM 7.8 mg/dl (8.6-10.4); CARBON DIOXIDE 23 mmol/L (22-30); GLUCOSE,RANDOM 78 mg/dL (75-110); TOTAL PROTEIN 6.3 g/dL (6.3-8.3)
[2017-03-04 11:44] LABS: MAGNESIUM 1.4 mg/dL (1.6-2.3)
[2017-03-04] MEDS ORDERED: Magnesium Sulfate 1 gm in D5W 1 GM/100 ML BAG IVPB ONE (14:21)
--- NOTE | 2017-03-04 14:49 | CP.PCM.PN ---
<CecilioDenisse - Last Filed: 03/04/17 17:13> Subjective - Date & Time of Evaluation Date of Evaluation: 03/04/17 Time of Evaluation: 14:49 - Subjective Subjective: Patient is a 56yo male with a past medical history of Hepatitis C and alcohol abuse who was admitted for lower extremity weakness and frequent falls. The patient was seen and examined at bedside and states that currently he feels fine. He complains of blurred vision but denies seeing any spots in his visual field and was able to correctly name the number of fingers he could see from about 3 feet away. He also complains of some weakness in both of his legs. ROS: General: (-) Fever or chills HEENT: (+) blurred vision, (-) [place] Cardio: (-) Chest pain or palpitations Resp: (-) SOB, (+) dry cough GI: (-) N/V/D/C/Abdominal pain : (-) Hematuria or dysuria MSK: (-) LE swelling or pain Objective - Vital Signs/Intake and Output Vital Signs (last 24 hours): Temp Pulse Resp BP Pulse Ox 98 F 76 18 119/77 99 03/04/17 10:35 03/04/17 13:15 03/04/17 13:15 03/04/17 13:15 03/04/17 13:15 Intake and Output: 03/04/17 03/04/17 06:59 18:59 Intake Total 100 Balance 100 - Medications Medications: Current Medications Bisacodyl (Dulcolax) 10 mg PO ONCE ONE Stop: 03/04/17 17:01 Ergocalciferol (Drisdol 50,000 Intl Units Cap) 1 cap PO Q7D [facility] Folic Acid (Folic Acid) 1 mg PO DAILY [facility] Sodium Chloride (Sodium Chloride 0.9%) 1,000 mls @ 100 mls/hr IV .Q10H [facility] Last Admin: 03/03/17 23:35 Dose: 100 mls/hr Magnesium Sulfate/Dextrose (Magnesium Sulfate 1 Gm/100 Ml D5w) 1 gm in 100 mls @ 100 mls/hr IVPB ONCE ONE Stop: 03/04/17 15:20 Multivitamins (Hexavitamin) 1 tab PO DAILY [facility] Pantoprazole Sodium (Protonix Ec Tab) 40 mg PO DAILY [facility] Polyethylene Glycol/Electrolytes (Golytely) 4,000 ml PO ONCE ONE Stop: 03/04/17 19:01 Potassium Phos/Sodium Phos (Neutra-Phos) 1 pkt PO TIDCC [facility] Thiamine HCl (Vitamin B1 Tab) 100 mg PO DAILY [facility] - Labs Labs: 03/04/17 11:16 03/04/17 11:16 PT 11.5 SECONDS (9.7-12.2) 03/04/17 04:00 INR 1.0 03/04/17 04:00 APTT 36 SECONDS (21-34) H 03/04/17 04:00 - Constitutional Appears: No Acute Distress, Unkempt - Head Exam Head Exam: NORMAL INSPECTION - Eye Exam Eye Exam: EOMI. absent: Scleral icterus - ENT Exam ENT Exam: Mucous Membranes Moist - Respiratory Exam Respiratory Exam: Clear to Ausculation Bilateral, NORMAL BREATHING PATTERN - Cardiovascular Exam Cardiovascular Exam: REGULAR RHYTHM, +S1, +S2 - GI/Abdominal Exam GI & Abdominal Exam: Soft, Normal Bowel Sounds. absent: Distended, Tenderness - Extremities Exam Extremities Exam: Normal Inspection. absent: Pedal Edema, Tenderness - Neurological Exam Neurological Exam: Awake - Psychiatric Exam Psychiatric exam: Normal Affect, Normal Mood - Skin Skin Exam: Dry, Intact, Normal Color, Warm Assessment and Plan - Assessment and Plan (Free Text) Assessment: Symptomatic Anemia - possible due to GI bleed - Hgb 7.9; Hct 23.0 MCV 94.9 Plts 162 upon admission - Fecal Occult Blood + in ED - Consult GI, Dr. Harper - Help appreciated - EGD (03/04) showed GERD and Gastritis - f/u colonoscopy - Transfused two units of pRBC - post transfusion CBC Hb 7.9, Hct 23.4, Plts 102 - f/u CBC (03/04 @ 16:00 and 22:00) - Head CT 03/04/17 - Atrophy and small vessel disease, no bleed - Iron - 117; TIBC 323; %sat 36 - normal - TSH - 3.33 - normal - Vit. B12 - 502 - normal - Vitamin D <12.8 - low (norm 30 - 100) - Folate >20 (normal) Vision Loss - Head CT 03/04/17 - Atrophy and small vessel disease, no bleed - Patient appears to be improving and can see how many fingers are being held up in front of him - Opthalmology consulted (Dr. Pineda) - recs appreciated - f/u carotid doppler - f/u MRI brain - f/u echo (LVEF: 64) Dehydration - Pt appears clinically dry, admits poor oral intake over previous weeks - Given 1 L bolus of NS w/ Multivitamin, Thiamine and Folic Acid - Given 1 L bolus of NS - Started on NS @100 ml/hr - UA - April color, 1+protein, 1+ketones, 2+Bilirubin, 20 WBC, Occ Calcium Oxalate Crystals, Few Bacteria, Hyaline Casts 11-20 Frequent Falls/weakness - possibly due to intoxication, malnutrition, electrolyte abnormalities, dehydration or anemia - Head CT 03/04/17 - Atrophy and small vessel disease, no bleed - UDS - positive for Cannabinoids, otherwise negative. - f/u AM labs - Fall & seizure precautions - Do romberg testing tomorrow (03/05) Alcoholism - Given 1 L bolus of NS w/ Multivitamin, Thiamine and Folic Acid - Started on Folic Acid 1 mg PO daily - Started on Multivitamin 1 tab PO daily - Started on Thiamine 100 mg PO daily - f/u thiamine - [facility] protocol - UDS: +THC and Alc Quant <10 Electrolyte Abnormalities - Potassium 3.1 - 40 meq PO Q4H for total of 2 doses - Magnesium 1.5 - given 2 gms IVPB - Phosphorus 1.3 - given 15mmol IVPB over 6 hours - will continue to monitor with AM labs Hepatitis C - 2/2 IV drug use - confirmed with reactive test (03/04) Prophylactic Care - Protonix 40mg PO daily - SCDs - Contraindication for anticoagulation at this time due to positive Fecal Occult Blood <Octaviano Mac - Last Filed: 03/04/17 20:57> Objective - Vital Signs/Intake and Output Vital Signs (last 24 hours): Temp Pulse Resp BP Pulse Ox 98.1 F 96 H 20 93/61 L 96 03/04/17 15:49 03/04/17 15:49 03/04/17 15:49 03/04/17 15:49 03/04/17 15:49 Intake and Output: 03/04/17 03/05/17 18:59 06:59 Intake Total 100 Balance 100 - Medications Medications: Current Medications Ergocalciferol (Drisdol 50,000 Intl Units Cap) 1 cap PO Q7D [facility] Folic Acid (Folic Acid) 1 mg PO DAILY [facility] Sodium Chloride (Sodium Chloride 0.9%) 1,000 mls @ 100 mls/hr IV .Q10H [facility] Last Admin: 03/04/17 16:14 Dose: 100 mls/hr Multivitamins (Hexavitamin) 1 tab PO DAILY [facility] Pantoprazole Sodium (Protonix Ec Tab) 40 mg PO DAILY [facility] Pneumococcal Polyvalent Vaccine (Pneumovax 23 Vaccine) 0.5 ml IM .ONCE ONE Stop: 03/06/17 10:01 Potassium Phos/Sodium Phos (Neutra-Phos) 1 pkt PO TIDCC [facility] Last Admin: 03/04/17 17:41 Dose: 1 pkt Thiamine HCl (Vitamin B1 Tab) 100 mg PO DAILY [facility] - Labs Labs: 03/04/17 17:00 03/04/17 11:16 PT 11.5 SECONDS (9.7-12.2) 03/04/17 04:00 INR 1.0 03/04/17 04:00 APTT 36 SECONDS (21-34) H 03/04/17 04:00 Attending/Attestation - Attestation I have personally seen and examined this patient.: Yes I have fully participated in the care of the patient.: Yes I have reviewed all pertinent clinical information, including history, physical exam and plan: Yes Notes (Text): 03/04/17 20:51 Patient was seen and examined with the Resident in the Endoscopy recovery area at 1 PM Exam, assessment and plan were thoroughly gone over with the Resident. Please note on ROS: Vision is improved and now can see details and other than some blurriness no issues, correction to HPI above (patient is able to identify number of fingers being held up from 6 feet away) Tingling Bilateral toes (chronic present for long time) Moving bowels Abdominal pain has resolved Please also note on Exam: GI: BSx4, Soft, NT, ND, NO guarding/rebound tenderness, NO HSM Neuro: CN II through XII are grossly intact, 5/5 strength bilateral UE and LE, 2 /4 DTR bilateral UE and LE Will perform Rhomberg 03/05/17 Explained to both patient and (who was at bedside) that most of the presenting complaints for patient (visual changes, epigastric pain, frequent falls due to lack of coordination of feet, anemia requiring blood transfusion, electrolyte abnormalities) can be linked to patient's long history of daily Vodka drinking. Patient is for Colonoscopy with GI Dr. Salinas 03/05/17 Octaviano aMc D.O.
--- NOTE | 2017-03-04 15:01 | CARD ---
APPROVED REPORT EKG Measurement Heart [id number] <Conclusion> Sinus tachycardia Nonspecific T wave abnormality Abnormal ECG
[2017-03-04] MEDS: Sodium Chloride 0.9% 1,000 ML IV SCH ×2 (16:14→20:52)
--- NOTE | 2017-03-04 16:16 | MRI ---
PROCEDURE: MRI BRAIN WITHOUT CONTRAST HISTORY: vision loss COMPARISON: Comparison is made to the previous CT dated 03/04/2017 TECHNIQUE: Multiplanar, multisequence MR images of the brain were obtained without intravenous contrast enhancement. FINDINGS: HEMORRHAGE: None DWI: No evidence of an acute or early subacute infarction. BRAIN PARENCHYMA: No mass effect or edema. Moderate atrophy is noted. There are periventricular hyperintense signal in the white matter suggestive but nonspecific for chronic microvascular ischemic disease. VENTRICLES: Unremarkable. No hydrocephalus. CRANIUM: Unremarkable. ORBITS: Grossly unremarkable. PARANASAL SINUSES/MASTOIDS: Partial opacification/ effusion at the mastoids bilaterally. VASCULAR SYSTEM: Skull base flow voids intact. OTHER FINDINGS: None. IMPRESSION: No evidence of acute infarction or acute pathology in the brain. No evidence of mass lesion mass effect or midline shift. Moderate atrophy. [id number] periventricular white matter hyperintense signal noted may represent chronic microvascular ischemic disease.
[2017-03-04] MEDS ORDERED: Bisacodyl 5mg EC Tab PO ONE (17:00)
[2017-03-04 17:10] LABS: BASO % 0.6 % (0.0-2.0); EOS # 0.1 K/uL (0.0-0.7); HEMATOCRIT 24.4 % (35.0-51.0); LYMPH # 1.6 K/uL (1.0-4.3); LYMPH % 25.7 % (20.0-40.0); MEAN CELL VOLUME 95.4 fL (80.0-94.0); MEAN CORPUSCULAR HEMOGLOBIN 32.2 pg (27.0-31.0); MEAN CORPUSCULAR HGB CONC 33.8 g/dL (33.0-37.0); MONO # 1.2 K/uL (0.0-0.8); MONO % 19.7 % (0.0-10.0); NRBC % 0.2 % (0.0-2.0); RED CELL DISTRIBUTION WIDTH 15.8 % (11.5-14.5); WHITE BLOOD COUNT 6.3 K/uL (4.8-10.8)
[2017-03-04] MEDS: Potassium & Sodium Phosphate PO SCH (17:41)
[2017-03-04] MEDS ORDERED: Peg-Electrolyte Oral Soln 4L (Golytely) PO ONE (19:00)
--- NOTE | 2017-03-04 20:08 | CARD ---
APPROVED REPORT EXAM: Two-dimensional and M-mode echocardiogram with Doppler and color Doppler. Other Information Quality : GoodRhythm : NSR INDICATION CHRONIC ALCHOLISM , WEAKNESS 2D DIMENSIONS IVSd0.8 (0.7-1.1cm)LVDd4.3 (3.9-5.9cm) PWd0.6 (0.7-1.1cm)LVDs2.7 (2.5-4.0cm) FS (%) 37.2 %LVEF (%)67.5 (>50%) M-Mode DIMENSIONS RVDd2.51 (2.1-3.2cm)Left Atrium (MM)4.30 (2.5-4.0cm) IVSd0.55 (0.7-1.1cm)Aortic Root2.70 (2.2-3.7cm) LVDd4.78 (4.0-5.6cm)Aortic Cusp Exc.1.79 (1.5-2.0cm) PWd0.91 (0.7-1.1cm)FS (%) 35 % LVDs3.12 (2.0-3.8cm)LVEF (%)64 (>50%) Mitral Valve MV E Whxtnhcg615.4cm/sMV A Tekxollu616.4cm/sE/A ratio1.1 TDI E/Lateral E'0.0E/Medial E'0.0 Tricuspid Valve TR Peak [id number]/sTR Peak Gr.[id number] LEFT VENTRICLE The left ventricle is normal size. There is normal left ventricular wall thickness. The left ventricular function is normal. The left ventricular ejection fraction is within the normal range. About 65% No regional wall motion abnormalities noted. The left ventricular diastolic function is normal. No left ventricle thrombus noted on this study. There is no ventricular septal defect visualized. There is no left ventricular aneurysm. There is no mass noted in the left ventricle. RIGHT VENTRICLE The right ventricle is normal size. There is normal right ventricular wall thickness. The right ventricular systolic function is normal. ATRIA The left atrium size is normal. The right atrium size is normal. The interatrial septum is intact with no evidence for an atrial septal defect. AORTIC VALVE The aortic valve is normal in structure and function. Trace aortic regurgitation is present. There is no aortic valvular stenosis. There is no aortic valvular vegetation. MITRAL VALVE The mitral valve is normal in structure and function. There is no evidence of mitral valve prolapse. There is no mitral valve stenosis. There is no mitral valve regurgitation noted. TRICUSPID VALVE The tricuspid valve is normal in structure and function. There is no tricuspid valve regurgitation noted. There is no tricuspid valve prolapse or vegetation. There is no tricuspid valve stenosis. PULMONIC VALVE The pulmonary valve is normal in structure and function. There is no pulmonic valvular regurgitation. There is no pulmonic valvular stenosis. GREAT VESSELS The aortic root is normal in size. The ascending aorta is normal in size. The pulmonary artery is normal. The IVC is normal in size and collapses >50% with inspiration. PERICARDIAL EFFUSION The pericardium appears normal. There is no pleural effusion. <Conclusion> The left ventricular function is normal. The left ventricular ejection fraction is within the normal range. About 65% Trace aortic regurgitation is present.
[2017-03-04] MEDS ORDERED: Magnesium Citrate Oral SOL (300 ml) PO ONE (23:39)
[2017-03-04 23:52] LABS: BASO % 0.5 % (0.0-2.0); EOS # 0.2 K/uL (0.0-0.7); EOS % 2.3 % (0.0-4.0); HEMATOCRIT 24.3 % (35.0-51.0); LYMPH # 1.4 K/uL (1.0-4.3); LYMPH % 20.9 % (20.0-40.0); MEAN CELL VOLUME 95.1 fL (80.0-94.0); MEAN CORPUSCULAR HEMOGLOBIN 32.5 pg (27.0-31.0); MEAN CORPUSCULAR HGB CONC 34.2 g/dL (33.0-37.0); MEAN PLATELET VOLUME 8.8 fL (7.2-11.7); MONO # 1.4 K/uL (0.0-0.8); MONO % 21.3 % (0.0-10.0); NRBC % 0.2 % (0.0-2.0); PLATELET COUNT 96 K/uL (130-400); RED CELL DISTRIBUTION WIDTH 15.6 % (11.5-14.5); WHITE BLOOD COUNT 6.5 K/uL (4.8-10.8)
[2017-03-05 01:27] LABS: EOSINOPHIL 2 % (0-4); NEUTROPHIL 54 % (50-75); TOTAL CELLS COUNTED 100
[2017-03-05 01:28] LABS: LARGE PLATELETS PRESENT
[2017-03-05] MEDS: Sodium Chloride 0.9% 1,000 ML IV SCH (03:48)
[2017-03-05 07:21] LABS: BASO % 0.6 % (0.0-2.0); CHLORIDE 108 mmol/L (98-107); EOS # 0.1 K/uL (0.0-0.7); EOS % 2.1 % (0.0-4.0); LYMPH # 1.2 K/uL (1.0-4.3); LYMPH % 20.9 % (20.0-40.0); MEAN CELL VOLUME 94.9 fL (80.0-94.0); MEAN CORPUSCULAR HEMOGLOBIN 32.3 pg (27.0-31.0); MONO # 1.3 K/uL (0.0-0.8); MONO % 21.8 % (0.0-10.0); NRBC % 0.3 % (0.0-2.0); PLATELET COUNT 112 K/uL (130-400); POTASSIUM 2.9 mmol/L (3.6-5.2); RED CELL DISTRIBUTION WIDTH 15.5 % (11.5-14.5); SODIUM 139 mmol/L (132-148); WHITE BLOOD COUNT 5.7 K/uL (4.8-10.8)
[2017-03-05 07:23] LABS: ALB/GLOB RATIO 0.9 (1.0-2.1); ALKALINE PHOSPHATASE 195 U/L (38-126); AST/SGOT 39 U/L (17-59); BILIRUBIN,TOTAL 1.2 mg/dL (0.2-1.3); CARBON DIOXIDE 23 mmol/L (22-30); GFR AFRICAN-AMERICAN > 60; TOTAL PROTEIN 5.9 g/dL (6.3-8.3)
[2017-03-05 07:24] LABS: ALT/SGPT 30 U/L (21-72); BLOOD UREA NITROGEN 9 mg/dL (9-20); CALCIUM 7.9 mg/dl (8.6-10.4); GLUCOSE,RANDOM 79 mg/dL (75-110)
--- NOTE | 2017-03-05 07:24 | CP.PCM.PN ---
<Denisse Hernandes - Last Filed: 03/05/17 19:17> Subjective - Date & Time of Evaluation Date of Evaluation: 03/05/17 Time of Evaluation: 07:24 - Subjective Subjective: Patient seen and examined at bedside. Patient resting comfortably in bed. Patient says he is hungry. He says he is still unable to walk but was able to stand up out of bed last night to use the toilet next to his bed without difficulty. Patient says he is still having pain in both legs as well as numbness and tingling from the thighs all the way down to his feet. Patient denies fever, chills, CP, SOB, AP, N/V/D/C. Objective - Vital Signs/Intake and Output Vital Signs (last 24 hours): Temp Pulse Resp BP Pulse Ox 98.3 F 77 20 107/65 97 03/05/17 04:00 03/05/17 04:00 03/05/17 04:00 03/05/17 04:00 03/05/17 04:00 Intake and Output: 03/05/17 03/05/17 06:59 18:59 Intake Total 800 Balance 800 - Medications Medications: Current Medications Ergocalciferol (Drisdol 50,000 Intl Units Cap) 1 cap PO Q7D [facility] Folic Acid (Folic Acid) 1 mg PO DAILY [facility] Sodium Chloride (Sodium Chloride 0.9%) 1,000 mls @ 100 mls/hr IV .Q10H [facility] Last Admin: 03/05/17 03:48 Dose: 100 mls/hr Lorazepam (Ativan) 1 mg IVP Q6H PRN PRN Reason: Symptoms of alcohol withdrawl Multivitamins (Hexavitamin) 1 tab PO DAILY [facility] Pantoprazole Sodium (Protonix Ec Tab) 40 mg PO DAILY [facility] Pneumococcal Polyvalent Vaccine (Pneumovax 23 Vaccine) 0.5 ml IM .ONCE ONE Stop: 03/06/17 10:01 Potassium Phos/Sodium Phos (Neutra-Phos) 1 pkt PO TIDCC [facility] Last Admin: 03/04/17 17:41 Dose: 1 pkt Thiamine HCl (Vitamin B1 Tab) 100 mg PO DAILY [facility] - Labs Labs: 03/04/17 23:40 03/04/17 11:16 PT 11.5 SECONDS (9.7-12.2) 03/04/17 04:00 INR 1.0 03/04/17 04:00 APTT 36 SECONDS (21-34) H 03/04/17 04:00 - Constitutional Appears: Non-toxic, No Acute Distress, Unkempt - Head Exam Head Exam: NORMAL INSPECTION - Eye Exam Eye Exam: EOMI Additional comments: Patient can see better today but still blurry. Patient can tell me how many fingers I am holding up from 7 feet away. - ENT Exam ENT Exam: Mucous Membranes Moist - Respiratory Exam Respiratory Exam: Clear to Ausculation Bilateral, NORMAL BREATHING PATTERN. absent: Rales, Rhonchi, Wheezes - Cardiovascular Exam Cardiovascular Exam: REGULAR RHYTHM, +S1, +S2. absent: Murmur - GI/Abdominal Exam GI & Abdominal Exam: Soft, Hernia (umbilical ). absent: Tenderness - Extremities Exam Extremities Exam: Tenderness (LEs b/l with palpation (/10) ). absent: Pedal Edema - Neurological Exam Neurological Exam: Alert, Awake, Oriented x3. absent: Motor Sensory Deficit Neuro motor strength exam: Left Upper Extremity: 5, Right Upper Extremity: 5, Left Lower Extremity: 5, Right Lower Extremity: 5 Additional comments: [id number] testing normal b/l - Psychiatric Exam Psychiatric exam: Normal Affect, Normal Mood - Skin Skin Exam: Dry, Intact, Normal Color, Warm Assessment and Plan - Assessment and Plan (Free Text) Assessment: Symptomatic Anemia - possible due to GI bleed - Hgb 7.9; Hct 23.0 MCV 94.9 Plts 162 upon admission - Fecal Occult Blood + in ED - Consult GI, Dr. Harper - Help appreciated - EGD (03/04) showed GERD and Gastritis - f/u colonoscopy (03/05) - Transfused two units of pRBC (03/04) - post transfusion CBC Hb 7.9, Hct 23.4 , Plts 102 - 03/04 serial H&H 8.2 & 24.4 plts 87 (16:00) then 8.3 & 24.3 plts 96 (22: 00) - 03/05 H&H 7.8 & 23.0 Plts 112 - Head CT 03/04/17 - Atrophy and small vessel disease, no bleed - Iron - 117; TIBC 323; %sat 36 - normal - TSH - 3.33 - normal - Vit. B12 - 502 - normal - Vitamin D <12.8 - low (norm 30 - 100) - Folate >20 (normal) Vision Loss - Head CT 03/04/17 - Atrophy and small vessel disease, no bleed - Patient appears to be improving and can see how many fingers are being held up in front of him - Opthalmology consulted (Dr. Pineda) - recs appreciated - f/u carotid doppler - MRI brain: mild atrophy and white matter changes - f/u echo (LVEF: 64) Dehydration - Pt appears clinically dry, admits poor oral intake over previous weeks - Given 1 L bolus of NS w/ Multivitamin, Thiamine and Folic Acid - Given 1 L bolus of NS - Started on NS @100 ml/hr - D/C 03/05 because patient on regular diet and taking in fluids - no longer needed - UA - April color, 1+protein, 1+ketones, 2+Bilirubin, 20 WBC, Occ Calcium Oxalate Crystals, Few Bacteria, Hyaline Casts 11-20 Frequent Falls/weakness - possibly due to intoxication, malnutrition, electrolyte abnormalities, dehydration or anemia - Head CT 03/04/17 - Atrophy and small vessel disease, no bleed - UDS - positive for Cannabinoids, otherwise negative. - f/u AM labs - Fall & seizure precautions - romberg testing positive Alcoholism - Given 1 L bolus of NS w/ Multivitamin, Thiamine and Folic Acid - Started on Folic Acid 1 mg PO daily - Started on Multivitamin 1 tab PO daily - Started on Thiamine 100 mg PO daily - f/u thiamine - [facility] protocol - UDS: +THC and Alc Quant <10 Electrolyte Abnormalities - On arrival: - Potassium 3.1 - 40 meq PO Q4H for total of 2 doses - Magnesium 1.5 - given 2 gms IVPB - Phosphorus 1.3 - given 15mmol IVPB over 6 hours - will continue to replace as needed and monitor with AM labs Hepatitis C - 2/2 IV drug use - confirmed with reactive test (03/04) Umbilical hernia - patient wants to have this fixed after discharge Prophylactic Care - Protonix 40mg PO daily - SCDs - Contraindication for anticoagulation at this time due to positive Fecal Occult Blood Will follow up with PT tomorrow and give them the okay to treat with the low H& H. <Octaviano Mac - Last Filed: 03/05/17 20:16> Objective - Vital Signs/Intake and Output Vital Signs (last 24 hours): Temp Pulse Resp BP Pulse Ox 98.8 F 91 H 20 104/63 100 03/05/17 16:00 03/05/17 16:00 03/05/17 16:00 03/05/17 16:00 03/05/17 16:00 Intake and Output: 03/05/17 03/06/17 18:59 06:59 Intake Total 300 Balance 300 - Medications Medications: Current Medications Ergocalciferol (Drisdol 50,000 Intl Units Cap) 1 cap PO Q7D [facility] Folic Acid (Folic Acid) 1 mg PO DAILY [facility] Last Admin: 03/05/17 12:35 Dose: 1 mg Lorazepam (Ativan) 1 mg IVP Q6H PRN PRN Reason: Symptoms of alcohol withdrawl Multivitamins (Hexavitamin) 1 tab PO DAILY [facility] Last Admin: 03/05/17 12:36 Dose: 1 tab Pantoprazole Sodium (Protonix Ec Tab) 40 mg PO DAILY [facility] Pneumococcal Polyvalent Vaccine (Pneumovax 23 Vaccine) 0.5 ml IM .ONCE ONE Stop: 03/06/17 10:01 Potassium Phos/Sodium Phos (Neutra-Phos) 1 pkt PO TIDCC [facility] Last Admin: 03/05/17 17:32 Dose: 1 pkt Thiamine HCl (Vitamin B1 Tab) 100 mg PO DAILY [facility] Last Admin: 03/05/17 12:35 Dose: 100 mg - Labs Labs: 03/05/17 06:38 03/05/17 17:01 PT 12.6 SECONDS (9.7-12.2) H 03/05/17 09:23 INR 1.1 03/05/17 09:23 APTT 37 SECONDS (21-34) H 03/05/17 09:23 Attending/Attestation - Attestation I have personally seen and examined this patient.: Yes I have fully participated in the care of the patient.: Yes I have reviewed all pertinent clinical information, including history, physical exam and plan: Yes Notes (Text): 03/05/17 20:13 Patient was seen and examined at 5:20 PM 03/05/17. Exam, assessment and plan were thoroughly gone over with the resident. His vision is still blurry but no more episodes of blacking out of vision as described on admission H&P. Also note on exam: Rhomberg: patient swayed dramatically and there I had him sit down. Findings on Colonoscopy were noted and explained to patient and . Potassium and Phos were replaced I will speak with with Audio Experience Expert to see if patient qualifies for any outpatient PT. If not, then we will need clearance from our in-house PT prior to discharge. Octaviano Mac D.O.
[2017-03-05 07:34] LABS: MAGNESIUM 1.7 mg/dL (1.6-2.3); PHOSPHOROUS 1.1 mg/dL (2.5-4.5)
[2017-03-05] MEDS: Potassium & Sodium Phosphate PO SCH ×3 (08:00→17:32)
[2017-03-05 09:01] LABS: LARGE PLATELETS PRESENT; METAMYELOCYTE 1 % (0-0); MYELOCYTE 1 % (0-0); NEUTROPHIL 57 % (50-75); TOTAL CELLS COUNTED 100
[2017-03-05 09:39] LABS: INR 1.1
[2017-03-05] MEDS ORDERED: Etomidate 20 mg/10ml Inj IV ONE (10:18)
[2017-03-05] MEDS ORDERED: Propofol 10 mg/ml Inj (20 ML) ONE (10:19)
--- NOTE | 2017-03-05 10:58 | CP.PCM.PN ---
Subjective - Date & Time of Evaluation Date of Evaluation: 03/05/17 Time of Evaluation: 10:56 - Subjective Subjective: Colonoscopy to cecum: See full OR note Mild diverticulosis of left colon Internal hemorrhoids No evidence of fresh or old blood. Conisder outpatient [facility] via [facility] if needed. Advance diet. Recall as needed. Outpatient follow up for his HCV status and possible treatment with DAA's. Objective - Vital Signs/Intake and Output Vital Signs (last 24 hours): Temp Pulse Resp BP Pulse Ox 98.7 F 78 20 103/65 100 03/05/17 10:24 03/05/17 10:24 03/05/17 10:24 03/05/17 10:24 03/05/17 10:24 Intake and Output: 03/05/17 03/05/17 06:59 18:59 Intake Total 800 200 Balance 800 200 - Medications Medications: Current Medications Ergocalciferol (Drisdol 50,000 Intl Units Cap) 1 cap PO Q7D [facility] Folic Acid (Folic Acid) 1 mg PO DAILY [facility] Sodium Chloride (Sodium Chloride 0.9%) 1,000 mls @ 100 mls/hr IV .Q10H [facility] Last Admin: 03/05/17 03:48 Dose: 100 mls/hr Lorazepam (Ativan) 1 mg IVP Q6H PRN PRN Reason: Symptoms of alcohol withdrawl Multivitamins (Hexavitamin) 1 tab PO DAILY [facility] Pantoprazole Sodium (Protonix Ec Tab) 40 mg PO DAILY [facility] Pneumococcal Polyvalent Vaccine (Pneumovax 23 Vaccine) 0.5 ml IM .ONCE ONE Stop: 03/06/17 10:01 Potassium Phos/Sodium Phos (Neutra-Phos) 1 pkt PO TIDCC [facility] Last Admin: 03/04/17 17:41 Dose: 1 pkt Thiamine HCl (Vitamin B1 Tab) 100 mg PO DAILY [facility] - Labs Labs: 03/05/17 06:38 03/05/17 06:38 PT 12.6 SECONDS (9.7-12.2) H 03/05/17 09:23 INR 1.1 03/05/17 09:23 APTT 37 SECONDS (21-34) H 03/05/17 09:23 Assessment and Plan (1) Iron deficiency anemia due to chronic blood loss Status: Acute (2) Fecal occult blood test positive Status: Acute (3) Hepatitis C infection Status: Acute
[2017-03-05] MEDS ORDERED: Potassium Chloride 20 mEq ER Tab PO ONE ×2 (13:45→18:00)
[2017-03-05] MEDS ORDERED: Potassium Phosphate 15 MMOLE in Sodium Chloride 0.9% 250 ML IV ONE (14:01)
[2017-03-05 17:13] LABS: CHLORIDE 110 mmol/L (98-107); POTASSIUM 3.4 mmol/L (3.6-5.2); SODIUM 142 mmol/L (132-148)
[2017-03-05 17:15] LABS: GFR AFRICAN-AMERICAN > 60
[2017-03-05 17:16] LABS: ALKALINE PHOSPHATASE 208 U/L (38-126); ALT/SGPT 31 U/L (21-72); AST/SGOT 50 U/L (17-59); BILIRUBIN,TOTAL 1.3 mg/dL (0.2-1.3); BLOOD UREA NITROGEN 8 mg/dL (9-20); CARBON DIOXIDE 24 mmol/L (22-30); GLUCOSE,RANDOM 90 mg/dL (75-110)
[2017-03-05 17:17] LABS: CALCIUM 8.1 mg/dl (8.6-10.4)
[2017-03-06 06:20] LABS: BASO % 0.7 % (0.0-2.0); EOS # 0.1 K/uL (0.0-0.7); EOS % 1.9 % (0.0-4.0); HEMATOCRIT 22.3 % (35.0-51.0); LYMPH # 1.2 K/uL (1.0-4.3); LYMPH % 21.6 % (20.0-40.0); MEAN CELL VOLUME 95.3 fL (80.0-94.0); MEAN CORPUSCULAR HEMOGLOBIN 32.6 pg (27.0-31.0); MEAN CORPUSCULAR HGB CONC 34.2 g/dL (33.0-37.0); MONO % 17.7 % (0.0-10.0); NRBC % 0.3 % (0.0-2.0); RED CELL DISTRIBUTION WIDTH 15.9 % (11.5-14.5); WHITE BLOOD COUNT 5.7 K/uL (4.8-10.8)
[2017-03-06 06:28] LABS: INR 1.2
[2017-03-06 06:30] LABS: CHLORIDE 107 mmol/L (98-107); POTASSIUM 3.8 mmol/L (3.6-5.2); SODIUM 140 mmol/L (132-148)
[2017-03-06 06:32] LABS: ALB/GLOB RATIO 0.9 (1.0-2.1); ALKALINE PHOSPHATASE 194 U/L (38-126); ALT/SGPT 29 U/L (21-72); AST/SGOT 36 U/L (17-59); BILIRUBIN,TOTAL 0.9 mg/dL (0.2-1.3); BLOOD UREA NITROGEN 7 mg/dL (9-20); CARBON DIOXIDE 23 mmol/L (22-30); GFR AFRICAN-AMERICAN > 60; TOTAL PROTEIN 5.5 g/dL (6.3-8.3)
[2017-03-06 06:33] LABS: CALCIUM 8.1 mg/dl (8.6-10.4); GLUCOSE,RANDOM 88 mg/dL (75-110); PHOSPHOROUS 2.5 mg/dL (2.5-4.5)
[2017-03-06 06:34] LABS: MAGNESIUM 1.5 mg/dL (1.6-2.3)
[2017-03-06] MEDS ORDERED: Pneumococcal 23-Valent Vaccine IM ONE (10:00)
[2017-03-06] MEDS ORDERED: Pantoprazole 40 mg EC Tab PO SCH (10:00)
[2017-03-06] MEDS: Magnesium Sulfate 1 gm in D5W 1 GM/100 ML BAG IVPB SCH ×2 (16:35→16:58)
[2017-03-06] MEDS: Potassium & Sodium Phosphate PO SCH (17:27)
--- NOTE | 2017-03-06 19:03 | CP.PCM.PN ---
<Denisse Hernandes - Last Filed: 03/06/17 19:00> Subjective - Date & Time of Evaluation Date of Evaluation: 03/06/17 Time of Evaluation: 19:00 - Subjective Subjective: Patient seen and examined at bedside. Patient resting comfortably in bed. Patient says he was able to get up and walk to the bathroom this morning to use the toilet without going weak in the legs. However he still feels a little unsteady on his feet. Patient says he is having less pain in his legs and now is only in his knees and toes. Patient still having numbness and tingling from the thighs all the way down to his feet. Patient denies fever, chills, CP, SOB, AP, N/V/D/C. Objective - Vital Signs/Intake and Output Vital Signs (last 24 hours): Temp Pulse Resp BP Pulse Ox 98.7 F 81 18 110/71 98 03/06/17 18:44 03/06/17 18:44 03/06/17 18:44 03/06/17 18:44 03/06/17 15:00 Intake and Output: 03/06/17 03/07/17 18:59 06:59 Intake Total 0 Balance 0 - Medications Medications: Current Medications Acetaminophen (Tylenol 325mg Tab) 650 mg PO Q4H PRN PRN Reason: Fever >100.4 F Last Admin: 03/06/17 18:00 Dose: 650 mg Diphenhydramine HCl (Benadryl) 25 mg PO Q4H PRN PRN Reason: Itching / Pruritus Last Admin: 03/06/17 18:00 Dose: 25 mg Ergocalciferol (Drisdol 50,000 Intl Units Cap) 1 cap PO Q7D [facility] Folic Acid (Folic Acid) 1 mg PO DAILY [facility] Last Admin: 03/05/17 12:35 Dose: 1 mg Lorazepam (Ativan) 1 mg IVP Q6H PRN PRN Reason: Symptoms of alcohol withdrawl Multivitamins (Hexavitamin) 1 tab PO DAILY [facility] Last Admin: 03/05/17 12:36 Dose: 1 tab Pantoprazole Sodium (Protonix Ec Tab) 40 mg PO DAILY [facility] Potassium Phos/Sodium Phos (Neutra-Phos) 1 pkt PO TIDCC [facility] Last Admin: 03/06/17 17:27 Dose: 1 pkt Thiamine HCl (Vitamin B1 Tab) 100 mg PO DAILY [facility] Last Admin: 03/05/17 12:35 Dose: 100 mg - Labs Labs: 03/06/17 06:09 03/06/17 06:09 PT 13.2 SECONDS (9.7-12.2) H 03/06/17 06:09 INR 1.2 03/06/17 06:09 APTT 33 SECONDS (21-34) 03/06/17 06:09 - Constitutional Appears: Non-toxic, No Acute Distress - Head Exam Head Exam: NORMAL INSPECTION - Eye Exam Eye Exam: EOMI Additional comments: Patient can see but still blurry. Patient can tell me how many fingers I am holding up from 7 feet away but cannot see any letters on the eye chart. - ENT Exam ENT Exam: Mucous Membranes Moist - Respiratory Exam Respiratory Exam: Clear to Ausculation Bilateral, NORMAL BREATHING PATTERN. absent: Accessory Muscle Use, Rales, Rhonchi, Wheezes, Respiratory Distress - Cardiovascular Exam Cardiovascular Exam: REGULAR RHYTHM, +S1, +S2. absent: Gallop, Rubs, Murmur - GI/Abdominal Exam GI & Abdominal Exam: Soft, Hernia (umbilical), Normal Bowel Sounds. absent: Tenderness - Extremities Exam Extremities Exam: Normal Inspection, Tenderness (in toes b/l). absent: Pedal Edema - Neurological Exam Neurological Exam: Alert, Awake Neuro motor strength exam: Left Upper Extremity: 5, Right Upper Extremity: 5, Left Lower Extremity: 5, Right Lower Extremity: 5 - Psychiatric Exam Psychiatric exam: Normal Affect, Normal Mood - Skin Skin Exam: Dry, Intact, Normal Color, Warm Assessment and Plan - Assessment and Plan (Free Text) Assessment: Symptomatic Anemia - possible due to GI bleed - Hgb 7.9; Hct 23.0 MCV 94.9 Plts 162 upon admission - Fecal Occult Blood + in ED - Consult GI, Dr. Harper - Help appreciated - EGD (03/04) showed GERD and Gastritis - colonoscopy (03/05): diverticulosis of sigmoid and descending colon, nonbleeding internal hemorrhoids - Transfused two units of pRBC (03/04) - post transfusion CBC Hb 7.9, Hct 23.4 , Plts 102 - 03/04 serial H&H 8.2 & 24.4 plts 87 (16:00) then 8.3 & 24.3 plts 96 (22: 00) - 03/05 H&H 7.8 & 23.0 Plts 112 - Transfused another 2U PRBCs (03/06) - f/u H&H - Head CT 03/04/17 - Atrophy and small vessel disease, no bleed - Iron - 117; TIBC 323; %sat 36 - normal - TSH - 3.33 - normal - Vit. B12 - 502 - normal - Vitamin D <12.8 - low (norm 30 - 100) - Folate >20 (normal) Vision Loss - Head CT 03/04/17 - Atrophy and small vessel disease, no bleed - Patient appears to be improving and can see how many fingers are being held up in front of him - Opthalmology consulted (Dr. Pineda) - recs appreciated - f/u carotid doppler - MRI brain: mild atrophy and white matter changes - f/u echo (LVEF: 64) Dehydration - Pt appears clinically dry, admits poor oral intake over previous weeks - Given 1 L bolus of NS w/ Multivitamin, Thiamine and Folic Acid - Given 1 L bolus of NS - Started on NS @100 ml/hr - D/C 03/05 because patient on regular diet and taking in fluids - no longer needed - UA - April color, 1+protein, 1+ketones, 2+Bilirubin, 20 WBC, Occ Calcium Oxalate Crystals, Few Bacteria, Hyaline Casts 11-20 Frequent Falls/weakness - possibly due to intoxication, malnutrition, electrolyte abnormalities, dehydration or anemia - Head CT 03/04/17 - Atrophy and small vessel disease, no bleed - UDS - positive for Cannabinoids, otherwise negative. - f/u AM labs - Fall & seizure precautions - romberg testing positive Alcoholism - Given 1 L bolus of NS w/ Multivitamin, Thiamine and Folic Acid - Started on Folic Acid 1 mg PO daily - Started on Multivitamin 1 tab PO daily - Started on Thiamine 100 mg PO daily - f/u thiamine - [facility] protocol - UDS: +THC and Alc Quant <10 Electrolyte Abnormalities - On arrival: - Potassium 3.1 - 40 meq PO Q4H for total of 2 doses - Magnesium 1.5 - given 2 gms IVPB - Phosphorus 1.3 - given 15mmol IVPB over 6 hours - will continue to replace as needed and monitor with AM labs Hepatitis C - 2/2 IV drug use - confirmed with reactive test (03/04) Umbilical hernia - patient wants to have this fixed after discharge Prophylactic Care - Protonix 40mg PO daily - SCDs - Contraindication for anticoagulation at this time due to positive Fecal Occult Blood Will follow up with PT tomorrow and give them the okay to treat with the low H& H. <Octaviano Mac - Last Filed: 03/06/17 19:38> Objective - Vital Signs/Intake and Output Vital Signs (last 24 hours): Temp Pulse Resp BP Pulse Ox 98.7 F 81 18 109/70 98 03/06/17 19:14 03/06/17 19:14 03/06/17 19:14 03/06/17 19:14 03/06/17 15:00 Intake and Output: 03/06/17 03/07/17 18:59 06:59 Intake Total 0 Balance 0 - Medications Medications: Current Medications Acetaminophen (Tylenol 325mg Tab) 650 mg PO Q4H PRN PRN Reason: Fever >100.4 F Last Admin: 03/06/17 18:00 Dose: 650 mg Diphenhydramine HCl (Benadryl) 25 mg PO Q4H PRN PRN Reason: Itching / Pruritus Last Admin: 03/06/17 18:00 Dose: 25 mg Ergocalciferol (Drisdol 50,000 Intl Units Cap) 1 cap PO Q7D [facility] Folic Acid (Folic Acid) 1 mg PO DAILY [facility] Last Admin: 03/05/17 12:35 Dose: 1 mg Lorazepam (Ativan) 1 mg IVP Q6H PRN PRN Reason: Symptoms of alcohol withdrawl Multivitamins (Hexavitamin) 1 tab PO DAILY [facility] Last Admin: 03/05/17 12:36 Dose: 1 tab Pantoprazole Sodium (Protonix Ec Tab) 40 mg PO DAILY [facility] Potassium Phos/Sodium Phos (Neutra-Phos) 1 pkt PO TIDCC [facility] Last Admin: 03/06/17 17:27 Dose: 1 pkt Thiamine HCl (Vitamin B1 Tab) 100 mg PO DAILY [facility] Last Admin: 03/05/17 12:35 Dose: 100 mg - Labs Labs: 03/06/17 06:09 03/06/17 06:09 PT 13.2 SECONDS (9.7-12.2) H 03/06/17 06:09 INR 1.2 03/06/17 06:09 APTT 33 SECONDS (21-34) 03/06/17 06:09 Attending/Attestation - Attestation I have personally seen and examined this patient.: Yes I have fully participated in the care of the patient.: Yes I have reviewed all pertinent clinical information, including history, physical exam and plan: Yes Notes (Text): 03/06/17 19:33 Patient was seen and examined at 3 PM 03/06/17 Exam, Assessment and Plan were gone over with the resident. 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 He was able to get up and out of bed himself today and walk, although unsteady at times. Rhomberg was still positive. I spoke with [employer] Mary and she was able to get patient an appointment with [facility] ([phone]) for 03/13/17 at 3 PM. Patient has to go to [facility] Office before his appointment next and apply for [facility]. This was explained to patient by both [employer] Vertical and myself. Patient Hgb/Hct continued to drop. As he was complaining of some palpitations ( although he was NOT tachycardic) and because of the complaints of weakness, I ordered 2 more units of PRBC to be transfused and this was explained to Nurse Jacek. As long as HgB/Hct are stable morning of 03/07/17, we will discharge patient to home. Octaviano Mac D.O.
[2017-03-07 01:13] VITALS: RESP 20
[2017-03-07 01:53] VITALS: O2SAT 100
[2017-03-07 06:43] LABS: BASO % 0.6 % (0.0-2.0); EOS # 0.1 K/uL (0.0-0.7); EOS % 1.7 % (0.0-4.0); HEMATOCRIT 30.5 % (35.0-51.0); LYMPH # 1.1 K/uL (1.0-4.3); LYMPH % 14.7 % (20.0-40.0); MEAN CELL VOLUME 92.8 fL (80.0-94.0); MEAN CORPUSCULAR HGB CONC 34.4 g/dL (33.0-37.0); MEAN PLATELET VOLUME 9.1 fL (7.2-11.7); MONO # 1.1 K/uL (0.0-0.8); MONO % 14.1 % (0.0-10.0); NRBC % 0.1 % (0.0-2.0); RED CELL DISTRIBUTION WIDTH 16.3 % (11.5-14.5); WHITE BLOOD COUNT 7.5 K/uL (4.8-10.8)
[2017-03-07 07:44] LABS: CHLORIDE 105 mmol/L (98-107); SODIUM 138 mmol/L (132-148)
[2017-03-07 07:45] LABS: POTASSIUM 4.2 mmol/L (3.6-5.2)
[2017-03-07 07:47] LABS: ALB/GLOB RATIO 0.9 (1.0-2.1); ALKALINE PHOSPHATASE 207 U/L (38-126); ALT/SGPT 35 U/L (21-72); AST/SGOT 50 U/L (17-59); BILIRUBIN,TOTAL 1.4 mg/dL (0.2-1.3); BLOOD UREA NITROGEN 9 mg/dL (9-20); CARBON DIOXIDE 24 mmol/L (22-30); GFR AFRICAN-AMERICAN > 60; GLUCOSE,RANDOM 83 mg/dL (75-110)
[2017-03-07 07:48] LABS: CALCIUM 8.1 mg/dl (8.6-10.4); MAGNESIUM 1.7 mg/dL (1.6-2.3)
[2017-03-07 08:05] VITALS: BP 124/76; PULSE 76; TEMP 98.4
--- NOTE | 2017-03-07 10:37 | CP.PCM.PN ---
Subjective - Date & Time of Evaluation Date of Evaluation: 03/07/17 Time of Evaluation: 10:00 - Subjective Subjective: Hospitalist Progress Note Patient was seen and examined at 10 AM 03/07/17. 56 year old male (with a long history of drinking a pint of vodka daily, frequent falls/weakness, and Hepatitis C) who was admitted on 03/04/17 after experiencing loss of vision and with complaints of abdominal pain. U/S Abdomen indicated fatty infiltration of the liver and borderline increase in splenic size. CT Head indicated chronic microvascular ischemic changes. MRI Brain showed NO acute bleed/mass, moderate atrophy, mild to moderate periventricular white matter changes that may represent chronic microvascular ischemic changes. Carotid U/S indicated mild disease. He was found to be anemic requiring a total of 3 units of PRBC. He was seen by GI and Upper EGD showed mild gastritis, no varices/ulcers/bleeding. Colonoscopy showed mild diverticulosis and internal hemorrhoids. His Potassium, Phosphorous, and Magnesium was replaced. 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 [employer] Plug Packer was able to set up outpatient PT for patient at [facility] and patient was provided with information to apply for [facility] at [facility] prior to his scheduled PT appointment there for 03/13/17 at 3 PM. He was provided with a rolling walker upon discharge and also instructed to schedule follow up with our clinic at this hospital. Upon FULL ROS NO more episodes of loss of vision NO more abdominal pain Feels stronger than when he came in NO n/v/d/c NO chest pain NO palpitations NO SOB/Cough/Wheezing NO burning/pain with urination NO lightheadedness/dizziness NO headaches NO paresthesias - Constitutional Appears: Non-toxic, No Acute Distress - Head Exam Head Exam: NORMAL INSPECTION - Eye Exam Eye Exam: EOMI, PERRLA Additional comments: Patient can see but still blurry. Patient can tell me how many fingers I am holding up from 10 feet away but cannot see any letters on my eye chart. - ENT Exam ENT Exam: Mucous Membranes Moist - Respiratory Exam Respiratory Exam: CTA B/L, NO R/R/W NORMAL BREATHING PATTERN. absent: Accessory Muscle Use, Rales, Rhonchi, Wheezes, Respiratory Distress - Cardiovascular Exam Cardiovascular Exam: REGULAR RHYTHM, +S1, +S2. absent: Gallop, Rubs, Murmur - GI/Abdominal Exam GI & Abdominal Exam: Soft, Hernia (umbilical), Normal Bowel Sounds. absent: Tenderness - Extremities Exam Extremities Exam: Normal Inspection, Tenderness (in toes b/l). absent: Pedal Edema - Neurological Exam Neurological Exam: Alert, Awake, CN II through XII are grossly intact Neuro motor strength exam: Left Upper Extremity: 5, Right Upper Extremity: 5, Left Lower Extremity: 5, Right Lower Extremity: 5 - Psychiatric Exam Psychiatric exam: Normal Affect, Normal Mood - Skin Skin Exam: Dry, Intact, Normal Color, Warm Assessments: 1). Symptomatic Anemia 2). Change in Vision 3). Dehydration 4). Frequent Falls/Weakness 5). Alcoholism 6). Hepatitis C 7). Umbilical Hernia The following instructions will be provided to patient upon discharge and have already been explained to him: 1). You have an appointment with Outpatient Physical Therapy at [facility] [address] [facility] in [place], [place] located on 3rd floor at 03/13/17 at 3:00 PM. 2). On Friday03/10/17 please go to [facility] main entrance and ask to go to the [facility] there so that you can apply for [facility]. You must do this BEFORE your appointment on 03/10/17. 3). Please call the [facility] located on the Floor B at [facility] [address] [facility] in [place], [place]. The phone number is [phone] and schedule an appointment so that they can be your primary care doctors to help you arrange the following: Gastroenterology evaluation for Hepatitis C treatment General Surgery evaluation for your Hernia of the Umbilicus 4). Please follow up with Alcoholics Anonymous: Masoud Bartlett located at [address] [place] [address] in [place]. Next meeting is [facility] at 8 PM [employer] at [address] in [place]. Next meeting is Friday at 9 AM. 5). Please take a daily multivitamin 6). Please have Vitamin D prescription filled at your pharmacy and take as directed: Vitamin D 50,000 Unit, 1 tablet by mouth every Friday until finished, Disp #7 7). Please take care and be well. Octaviano J. Mac, D.O. Objective - Vital Signs/Intake and Output Vital Signs (last 24 hours): Temp Pulse Resp BP Pulse Ox 98.4 F 76 20 124/76 100 03/07/17 07:00 03/07/17 07:00 03/07/17 07:00 03/07/17 07:00 03/07/17 07:00 Intake and Output: 03/07/17 03/07/17 06:59 18:59 Intake Total 633 Balance 633 - Medications Medications: Current Medications Acetaminophen (Tylenol 325mg Tab) 650 mg PO Q4H PRN PRN Reason: Fever >100.4 F Last Admin: 03/06/17 22:02 Dose: 650 mg Diphenhydramine HCl (Benadryl) 25 mg PO Q4H PRN PRN Reason: Itching / Pruritus Last Admin: 03/06/17 22:02 Dose: 25 mg Ergocalciferol (Drisdol 50,000 Intl Units Cap) 1 cap PO Q7D [facility] Folic Acid (Folic Acid) 1 mg PO DAILY [facility] Last Admin: 03/05/17 12:35 Dose: 1 mg Lorazepam (Ativan) 1 mg IVP Q6H PRN PRN Reason: Symptoms of alcohol withdrawl Multivitamins (Hexavitamin) 1 tab PO DAILY [facility] Last Admin: 03/05/17 12:36 Dose: 1 tab Pantoprazole Sodium (Protonix Ec Tab) 40 mg PO DAILY [facility] Potassium Phos/Sodium Phos (Neutra-Phos) 1 pkt PO TIDCC [facility] Last Admin: 03/06/17 17:27 Dose: 1 pkt Thiamine HCl (Vitamin B1 Tab) 100 mg PO DAILY [facility] Last Admin: 03/05/17 12:35 Dose: 100 mg - Labs Labs: 03/07/17 06:39 03/07/17 06:39 PT 13.2 SECONDS (9.7-12.2) H 03/06/17 06:09 INR 1.2 03/06/17 06:09 APTT 33 SECONDS (21-34) 03/06/17 06:09
[2017-03-07 12:57] LABS: HCV RNA QN PCR IU/ML 4404976 IU/mL (<15); HCV RNA QN PCR LOG IU/ML 6.64 Log IU/mL (<1.18)
--- NOTE | 2017-03-07 16:06 | CP.PCM.DIS ---
Provider - Provider Date of Admission: 03/06/17 06:55 Attending physician: Octaviano Mac MD Primary care physician: none Consults: Dr. Brad Pineda Time Spent in preparation of Discharge (in minutes): 35 Diagnosis - Discharge Diagnosis (1) Alcohol abuse Status: Acute (2) Fecal occult blood test positive Status: Acute (3) Hepatitis C infection Status: Acute (4) Symptomatic anemia Status: Acute Hospital Course - Lab Results Lab Results: Most Recent Lab Values WBC 7.5 K/uL (4.8-10.8) 03/07/17 06:39 RBC 3.29 Mil/uL (4.40-5.90) L 03/07/17 06:39 Hgb 10.5 g/dL (12.0-18.0) L D 03/07/17 06:39 Hct 30.5 % (35.0-51.0) L 03/07/17 06:39 MCV 92.8 fL (80.0-94.0) D 03/07/17 06:39 MCH 32.0 pg (27.0-31.0) H 03/07/17 06:39 MCHC 34.4 g/dL (33.0-37.0) 03/07/17 06:39 RDW 16.3 % (11.5-14.5) H 03/07/17 06:39 Plt Count 81 K/uL (130-400) L 03/07/17 06:39 MPV 9.1 fL (7.2-11.7) 03/07/17 06:39 Neut % (Auto) 68.9 % (50.0-75.0) 03/07/17 06:39 Lymph % (Auto) 14.7 % (20.0-40.0) L 03/07/17 06:39 Gem % (Auto) 14.1 % (0.0-10.0) H 03/07/17 06:39 Eos % (Auto) 1.7 % (0.0-4.0) 03/07/17 06:39 Baso % (Auto) 0.6 % (0.0-2.0) 03/07/17 06:39 Neut # 5.1 K/uL (1.8-7.0) 03/07/17 06:39 Lymph # 1.1 K/uL (1.0-4.3) 03/07/17 06:39 Gem # 1.1 K/uL (0.0-0.8) H 03/07/17 06:39 Eos # 0.1 K/uL (0.0-0.7) 03/07/17 06:39 Baso # 0.0 K/uL (0.0-0.2) 03/07/17 06:39 Neutrophils % (Manual) 57 % (50-75) 03/05/17 06:38 Band Neutrophils % 2 % (0-2) 03/05/17 06:38 Lymphocytes % (Manual) 19 % (20-40) L 03/05/17 06:38 Monocytes % (Manual) 20 % (0-10) H 03/05/17 06:38 Eosinophils % (Manual) 2 % (0-4) 03/04/17 23:40 Metamyelocytes % 1 % (0-0) H 03/05/17 06:38 Myelocytes % 1 % (0-0) H 03/05/17 06:38 Differential Comment 03/04/17 17:00 Platelet Estimate Slightly decreased (NORMAL) L 03/05/17 06:38 Large Platelets Present 03/05/17 06:38 Hypochromasia (manual) Moderate 03/05/17 06:38 Poikilocytosis (manual Slight 03/05/17 06:38 Anisocytosis (manual) Slight 03/05/17 06:38 Microcytosis (manual) Slight 03/05/17 06:38 Macrocytosis (manual) Slight 03/05/17 06:38 Target Cells Slight 03/05/17 06:38 [place] Cells Slight 03/05/17 06:38 PT 13.2 SECONDS (9.7-12.2) H 03/06/17 06:09 INR 1.2 03/06/17 06:09 APTT 33 SECONDS (21-34) 03/06/17 06:09 Sodium 138 mmol/L (132-148) 03/07/17 06:39 Potassium 4.2 mmol/L (3.6-5.2) 03/07/17 06:39 Chloride 105 mmol/L (98-107) 03/07/17 06:39 Carbon Dioxide 24 mmol/L (22-30) 03/07/17 06:39 Anion Gap 13 (10-20) 03/07/17 06:39 BUN 9 mg/dL (9-20) 03/07/17 06:39 Creatinine 0.6 MG/DL (0.8-1.5) L 03/07/17 06:39 Est GFR ( Amer) > 60 03/07/17 06:39 Est GFR (Non-Af Amer) > 60 03/07/17 06:39 Random Glucose 83 mg/dL (75-110) 03/07/17 06:39 Serum Osmolality 288 mosm/kg (272-300) 03/05/17 06:38 Calcium 8.1 mg/dl (8.6-10.4) L 03/07/17 06:39 Phosphorus 3.0 mg/dL (2.5-4.5) 03/07/17 06:39 Magnesium 1.7 mg/dL (1.6-2.3) 03/07/17 06:39 Iron 117 ug/dL (49-181) 03/04/17 02:26 TIBC 323 ug/dL (250-450) 03/04/17 02:26 % Saturation 36 (20-55) 03/04/17 02:26 Total Bilirubin 1.4 mg/dL (0.2-1.3) H 03/07/17 06:39 AST 50 U/L (17-59) 03/07/17 06:39 ALT 35 U/L (21-72) 03/07/17 06:39 Alkaline Phosphatase 207 U/L (38-126) H 03/07/17 06:39 Ammonia < 9 umol/L (9-33) L 03/03/17 18:53 Total Protein 6.0 g/dL (6.3-8.3) L 03/07/17 06:39 Albumin 2.9 g/dL (3.5-5.0) L 03/07/17 06:39 Globulin 3.1 gm/dL (2.2-3.9) 03/07/17 06:39 Albumin/Globulin Ratio 0.9 (1.0-2.1) L 03/07/17 06:39 Lipase 66 U/L (23-300) 03/05/17 06:38 Alpha Fetoprotein 3.9 ng/mL (0.0-7.5) 03/04/17 11:16 Vitamin B12 502 pg/mL (239-931) 03/04/17 01:05 25-OH Vitamin D Total < 12.8 NG/ML (30.0-100.0) L 03/04/17 01:05 Folate > 20.0 ng/mL 03/04/17 01:05 TSH 3rd Generation 3.33 mIU/L (0.46-4.68) 03/04/17 01:05 Urine Color April (YELLOW) 03/03/17 22:30 Urine Clarity Hazy (Clear) 03/03/17 22:30 Urine pH 5.0 (5.0-8.0) 03/03/17 22:30 Ur Specific Hodges 1.025 (1.003-1.030) 03/03/17 22:30 Urine Protein 1+ mg/dL (NEGATIVE) H 03/03/17 22:30 Urine Glucose (UA) Normal mg/dL (Normal) 03/03/17 22:30 Urine Ketones 1+ mg/dL (NEGATIVE) H 03/03/17 22:30 Urine Blood Negative (NEGATIVE) 03/03/17 22:30 Urine Nitrate Negative (NEGATIVE) 03/03/17 22:30 Urine Bilirubin 2+ (NEGATIVE) H 03/03/17 22:30 Urine Urobilinogen 4.0 mg/dL (0.2-1.0) 03/03/17 22:30 Ur Leukocyte Esterase Trace Jan/uL (Negative) 03/03/17 22:30 Urine WBC (Auto) 20 /hpf (0-5) H 03/03/17 22:30 Urine RBC (Auto) 3 /hpf (0-3) 03/03/17 22:30 Ur Squamous Epith Cells 1 /hpf (0-5) 03/03/17 22:30 Calcium Oxalate Crystal Occ /hpf (<OCC) H 03/03/17 22:30 Urine Bacteria Few (<OCC) H 03/03/17 22:30 Hyaline Casts 11-20 /lpf (0-2) H 03/03/17 22:30 Stool Occult Blood Positive (NEGATIVE) H 03/03/17 21:15 Urine Opiates Screen Negative (NEGATIVE) 03/03/17 22:30 Urine Methadone Screen Negative (NEGATIVE) 03/03/17 22:30 Ur Barbiturates Screen Negative (NEGATIVE) 03/03/17 22:30 Ur Phencyclidine Scrn Negative (NEGATIVE) 03/03/17 22:30 Ur Amphetamines Screen Negative (NEGATIVE) 03/03/17 22:30 U Benzodiazepines Scrn Negative (NEGATIVE) 03/03/17 22:30 U Oth Cocaine Metabols Negative (NEGATIVE) 03/03/17 22:30 U Cannabinoids Screen Positive (NEGATIVE) 03/03/17 22:30 Alcohol, Quantitative < 10 mg/dl (0-10) 03/03/17 18:53 Hepatitis A Ab Total Antibody pos (NEGATIVE) 03/04/17 11:16 Hep Bs Antigen Negative (NEGATIVE) 03/04/17 11:16 Hep Bs Antibody Indeterminate (NEGATIVE) 03/04/17 11:16 Hep B Core IgM Ab Negative (NEGATIVE) 03/04/17 11:16 Hepatitis C Antibody Reactive (NEGATIVE) 03/04/17 11:16 HCV RNA (PCR) IUs/ml [id number] IU/mL (<15) H 03/04/17 11:16 HCV RNA PCR log IUs/ml 6.64 Log IU/mL (<1.18) H 03/04/17 11:16 Blood Type O POSITIVE 03/06/17 16:40 Antibody Screen Negative 03/06/17 16:40 - Hospital Course Hospital Course: 56 year old male (with a long history of drinking a pint of vodka daily, frequent falls/weakness, and Hepatitis C) who was admitted on 03/04/17 after experiencing loss of vision and with complaints of abdominal pain. U/S Abdomen indicated fatty infiltration of the liver and borderline increase in splenic size. CT Head indicated chronic microvascular ischemic changes. MRI Brain showed NO acute bleed/mass, moderate atrophy, mild to moderate periventricular white matter changes that may represent chronic microvascular ischemic changes. Carotid U/S indicated mild disease. He was found to be anemic requiring a total of 3 units of PRBC. He was seen by GI and Upper EGD showed mild gastritis, no varices/ulcers/bleeding. Colonoscopy showed mild diverticulosis and internal hemorrhoids. His Potassium, Phosphorous, and Magnesium was replaced. 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 Bird Tender was able to set up outpatient PT for patient at [facility] and patient was provided with information to apply for [facility] at [facility] prior to his scheduled PT appointment there for 03/13/17 at 3 PM. He was provided with a rolling walker upon discharge and also instructed to schedule follow up with our clinic at this hospital. Upon FULL ROS NO more episodes of loss of vision NO more abdominal pain Feels stronger than when he came in NO n/v/d/c NO chest pain NO palpitations NO SOB/Cough/Wheezing NO burning/pain with urination NO lightheadedness/dizziness NO headaches NO paresthesias Assessments: 1). Symptomatic Anemia 2). Change in Vision 3). Dehydration 4). Frequent Falls/Weakness 5). Alcoholism 6). Hepatitis C 7). Umbilical Hernia The following instructions will be provided to patient upon discharge and have already been explained to him: 1). You have an appointment with Outpatient Physical Therapy at [facility] [address] [facility] in [place], [place] located on 3rd floor at 03/13/17 at 3:00 PM. 2). On Friday03/10/17 please go to [facility] main entrance and ask to go to [facility] there so that you can apply for [facility]. You must do this BEFORE your appointment on 03/10/17. 3). Please call the [facility] located on the Floor B at [facility] [address] [facility] in [place], [place]. The phone number is [phone] and schedule an appointment so that they can be your primary care doctors to help you arrange the following: Gastroenterology evaluation for Hepatitis C treatment General Surgery evaluation for your Hernia of the Umbilicus 4). Please follow up with Alcoholics Anonymous: Masoud Bartlett located at [address] [place] [address] in [place]. Next meeting is [facility] at 8 PM [employer] at [address] [facility] in [place]. Next meeting is Friday at 9 AM. 5). Please take a daily multivitamin 6). Please have Vitamin D prescription filled at your pharmacy and take as directed: Vitamin D 50,000 Unit, 1 tablet by mouth every Friday until finished, Disp #7 7). Please take care and be well. Discharge Exam - Head Exam Head Exam: NORMAL INSPECTION - Additional Findings Additional findings: - Constitutional Appears: Non-toxic, No Acute Distress - Head Exam Head Exam: NORMAL INSPECTION - Eye Exam Eye Exam: EOMI, PERRLA Additional comments: Patient can see but still blurry. Patient can tell me how many fingers I am holding up from 10 feet away but cannot see any letters on my eye chart. - ENT Exam ENT Exam: Mucous Membranes Moist - Respiratory Exam Respiratory Exam: CTA B/L, NO R/R/W NORMAL BREATHING PATTERN. absent: Accessory Muscle Use, Rales, Rhonchi, Wheezes, Respiratory Distress - Cardiovascular Exam Cardiovascular Exam: REGULAR RHYTHM, +S1, +S2. absent: Gallop, Rubs, Murmur - GI/Abdominal Exam GI & Abdominal Exam: Soft, Hernia (umbilical), Normal Bowel Sounds. absent: Tenderness - Extremities Exam Extremities Exam: Normal Inspection, Tenderness (in toes b/l). absent: Pedal Edema - Neurological Exam Neurological Exam: Alert, Awake, CN II through XII are grossly intact Neuro motor strength exam: Left Upper Extremity: 5, Right Upper Extremity: 5, Left Lower Extremity: 5, Right Lower Extremity: 5 - Psychiatric Exam Psychiatric exam: Normal Affect, Normal Mood - Skin Skin Exam: Dry, Intact, Normal Color, Warm Discharge Plan - Discharge Medications Prescriptions: Ergocalciferol [Drisdol 50,000 Intl Units Cap] 1 cap PO Q7D #7 cap Ergocalciferol [Drisdol 50,000 Intl Units Cap] 50,000 iu PO QWK #7 cap - Follow Up Plan Condition: FAIR Disposition: HOME/ ROUTINE Instructions: Ergocalciferol (By mouth), Colonoscopy (DC), Dehydration (DC), Heart Healthy Diet (DC), Upper Endoscopy (DC), Anemia (DC) Additional Instructions: The following instructions will be provided to patient upon discharge and have already been explained to him: 1). You have an appointment with Outpatient Physical Therapy at [facility] [address] in [place], [place] located on 3rd floor at 03/13/17 at 3:00 PM. 2). On Friday03/10/17 please go to [facility] main entrance and ask to go to the [facility] there so that you can apply for [facility]. You must do this BEFORE your appointment on 03/10/17. 3). Please call the [facility] located on the Floor B at [place] [address] in [place], [place]. The phone number is [phone] and schedule an appointment so that they can be your primary care doctors to help you arrange the following: Gastroenterology evaluation for Hepatitis C treatment General Surgery evaluation for your Hernia of the Umbilicus 4). Please follow up with Alcoholics Anonymous: Masoud Bartlett located at [address] [place] [address] in [place]. Next meeting is [facility] at 8 PM [place] [facility] at [address] in [place]. Next meeting is Friday at 9 AM. 5. Please take a daily multivitamin 6). You were provided with one prescription for low vitamin D. Please have this filled at your pharmacy: Vitamin D 50,000 units, 1 tablet by mouth once every Friday until finished, Disp: #7 7). Please take care and be well. Referrals: [facility] [Outside] [facility] [place] [Outside]
--- NOTE | 2017-03-10 11:38 | VASCLAB ---
PROCEDURE: HISTORY: changes in vision COMPARISON: None available. TECHNIQUE: Grayscale and duplex Doppler evaluation of the cervical carotid and vertebral arteries were performed. The common carotid, carotid bifurcations and cervical Internal Carotid Artery (ICA) and proximal External Carotid Artery (ECA) were evaluated. The vertebral arteries were evaluated for gross patency and flow direction. Report prepared by Jimmy Granado, BS, RVT FINDINGS: RIGHT CAROTID ARTERIES: 1. Common Carotid Artery: No significant focal plaque formation of the right common carotid artery. Maximum Peak Systolic velocity: 60 cm/sec: End-diastolic velocity 20 cm/sec. 2. Carotid Bifurcation: Calcific plaque formation. Maximum Peak Systolic velocity: 55 cm/sec: End-diastolic velocity 16 cm/sec. 3. Internal Carotid Artery: Moderate plaque formation of the right proximal ICA which does not results in hemodynamically significant stenosis. Plaque description: Calcific 3.1. Proximal Segment: Peak systolic velocity 71 cm/sec: End-diastolic velocity 25 cm/sec - % stenosis 0-15% 3.2. Middle Segment: Peak systolic velocity 56 cm/sec: End-diastolic velocity 26 cm/sec - % stenosis 0-15% 3.3. Distal Segment: Peak systolic velocity 76 cm/sec: End-diastolic velocity 26 cm/sec - % stenosis 0-15% 4. External Carotid Artery: No significant focal plaque formation. Peak systolic velocity 54 cm/sec 5. ICA/CCA Ratio: 1.3 LEFT CAROTID ARTERIES: 1. Common Carotid Artery: No significant focal plaque formation of the left common carotid artery. Maximum Peak Systolic velocity: 60 cm/sec: End-diastolic velocity 20 cm/sec. 2. Carotid Bifurcation: plaque formation. Maximum Peak Systolic velocity: 62 cm/sec: End-diastolic velocity 18 cm/sec. 3. Internal Carotid Artery: Plaque description: 3.1. Proximal Segment: Peak systolic velocity 60 cm/sec: End-diastolic velocity 24 cm/sec - % stenosis 0-15% 3.2. Middle Segment: Peak systolic velocity 74 cm/sec: End-diastolic velocity 26 cm/sec - % stenosis 0-15% 3.3. Distal Segment: Peak systolic velocity 79 cm/sec: End-diastolic velocity 27 cm/sec - % stenosis 0-15% 4. External Carotid Artery: No significant focal plaque formation. Peak systolic velocity 64 cm/sec 5. ICA/CCA Ratio: 1.3 VERTEBRAL ARTERIES: 1. Right Vertebral Artery: The right vertebral artery flow direction is antegrade. 2. Left Vertebral Artery: The left vertebral artery flow direction is antegrade. OTHER FINDINGS: 1. Right Brachial Blood pressure: 134 mmHg. 2. Left Brachial Blood pressure: 130 mmHg. IMPRESSION: RIGHT: Duplex scan does not suggest hemodynamically significant stenosis of the right extracranial carotid arteries. LEFT: Duplex scan does not suggest hemodynamically significant stenosis of the left extracranial carotid arteries.
== END 2017-03-07 11:55 | disposition home or self-care (01) | DRG 812 ==
LOC: C.ER 16:57 → C.9E 21:46 → C.6T 03-04 12:42 → OBSVTOIN 03-06 06:55
PROVIDERS: ADMIT Family Medicine; ATTEND Family Medicine
PROC: 30233N1 Transfusion of Nonautologous Red Blood Cells into Peripheral Vein, Percutaneous Approach (ICD-10-PCS; 2017-03-04)
PROC: 0DJ08ZZ Inspection of Upper Intestinal Tract, Via Natural or Artificial Opening Endoscopic (ICD-10-PCS; principal; 2017-03-04 09:45)
PROC: 0DJD8ZZ Inspection of Lower Intestinal Tract, Via Natural or Artificial Opening Endoscopic (ICD-10-PCS; 2017-03-05)
DX: D50.0 Iron deficiency anemia secondary to blood loss (chronic) (principal); E46 Unspecified protein-calorie malnutrition; I67.82 Cerebral ischemia; K76.0 Fatty (change of) liver, not elsewhere classified; K92.2 Gastrointestinal hemorrhage, unspecified; K29.20 Alcoholic gastritis without bleeding; F10.20 Alcohol dependence, uncomplicated; B19.20 Unspecified viral hepatitis C without hepatic coma; F17.210 Nicotine dependence, cigarettes, uncomplicated; H54.7 Unspecified visual loss; R29.6 Repeated falls; E86.0 Dehydration; F11.90 Opioid use, unspecified, uncomplicated; K21.9 Gastro-esophageal reflux disease without esophagitis; K64.8 Other hemorrhoids; K57.30 Diverticulosis of large intestine without perforation or abscess without bleeding; F19.90 Other psychoactive substance use, unspecified, uncomplicated; K42.9 Umbilical hernia without obstruction or gangrene

== ENCOUNTER 2017-06-12 14:07 | Inpatient (IN) | payer MEDICAID, OTHER ==
[2017-06-12 14:08] VITALS: BMI 22.6
--- NOTE | 2017-06-12 15:28 | C.PDOC ---
History Of Present Illness 57 year old male with PMHx of ETOH abuse and Hepatitis C presents to the ED c/o worsening abdomen distention and pain over the past 2 months along with nausea and vomit for the past week. Patient states he has no PMD, and denies fever, chills, hemturia, dysuria, blood in the stool, recent travel, known sick contacts. Time Seen by Provider: 06/12/17 14:22 Chief Complaint (Nursing): Abdominal Pain History Per: Patient History/Exam Limitations: no limitations Onset/Duration Of Symptoms: Days Current Symptoms Are (Timing): Still Present Location Of Pain/Discomfort: Diffuse Radiation Of Pain To:: None Quality Of Discomfort: "Pain" Associated Symptoms: Nausea, Vomiting. denies: Diarrhea Alleviating Factors: None Recent travel outside of the [place]: No Additional History Per: Patient Past Medical History Reviewed: Historical Data, Nursing Documentation, Vital Signs Vital Signs: Last Vital Signs Temp 97.4 F L 06/12/17 14:16 Pulse 87 06/12/17 18:12 Resp 20 06/12/17 18:12 BP 111/80 06/12/17 18:12 Pulse Ox 99 06/12/17 18:12 - Medical History PMH: Gastritis, Hepatitis (C) Denies: HIV Surgical History: No Surg Hx - [facility] Procedures DETOXIFICATION SERVICES FOR SUBSTANCE ABUSE TREATMENT (03/20/16) INSPECTION OF LOWER INTESTINAL TRACT, ENDO (03/06/17) INSPECTION OF UPPER INTESTINAL TRACT, ENDO (03/06/17) TRANSFUSE NONAUT RED BLOOD CELLS IN PERIPH VEIN, PERC (03/06/17) Family History: States: Unknown Family Hx - Social History Hx Tobacco Use: Yes Hx Alcohol Use: Yes Hx Substance Use: No - Immunization History Hx Tetanus Toxoid Vaccination: Yes Hx Influenza Vaccination: No Hx Pneumococcal Vaccination: No Review Of Systems Constitutional: Negative for: Fever, Chills Cardiovascular: Negative for: Chest Pain, Palpitations Respiratory: Negative for: Cough, Shortness of Breath Gastrointestinal: Positive for: Nausea, Vomiting, Abdominal Pain. Negative for : Diarrhea Musculoskeletal: Negative for: Back Pain Skin: Negative for: Rash Neurological: Negative for: Weakness, Numbness Physical Exam - Physical Exam Appears: Non-toxic, No Acute Distress, Other (Thin) Skin: Normal Color, Warm, Dry Head: Atraumatic, Normacephalic Nose: No Discharge Oral Mucosa: Moist Neck: Normal ROM, Supple Chest: Symmetrical Cardiovascular: Rhythm Regular, No Murmur Respiratory: Normal Breath Sounds, No Rales, No Rhonchi, No Wheezing Gastrointestinal/Abdominal: Soft, Hernia (easily reducible), Other (caput medusae, positve fluid wave) Extremity: Normal ROM, No Pedal Edema, No Calf Tenderness, No Swelling Neurological/Psych: Oriented x3, Normal Speech, Normal Cognition Gait: Steady ED Course And Treatment - Laboratory Results Result Diagrams: 06/12/17 15:30 06/12/17 15:30 O2 Sat by Pulse Oximetry: 100 (On RA) Pulse Ox Interpretation: Normal Medical Decision Making Medical Decision Making: Impression : abdominal distention, nausea, vomit Plan: * Blood work * CT abd/pelvis * Blood culture * Urine culture * UA Disposition - Disposition Disposition Time: 18:00 Condition: STABLE Forms: [facility] (Guyanese) - Clinical Impression Clinical Impression: Abdominal pain, Ascites, Hepatitis C - Scribe Statement The provider has reviewed the documentation as recorded by the Scribizabel Gonzales All medical record entries made by the Scribe were at my direction and personally dictated by me. I have reviewed the chart and agree that the record accurately reflects my personal performance of the history, physical exam, medical decision making, and the department course for this patient. I have also personally directed, reviewed, and agree with the discharge instructions and disposition.
[2017-06-12 15:36] LABS: BASO % 0.5 % (0.0-2.0); EOS # 0.1 K/uL (0.0-0.7); EOS % 1.3 % (0.0-4.0); LYMPH # 1.6 K/uL (1.0-4.3); MEAN CORPUSCULAR HEMOGLOBIN 29.4 pg (27.0-31.0); MEAN CORPUSCULAR HGB CONC 34.1 g/dL (33.0-37.0); MEAN PLATELET VOLUME 9.7 fL (7.2-11.7); MONO # 0.9 K/uL (0.0-0.8); MONO % 12.2 % (0.0-10.0); RBC 4.25 Mil/uL (4.40-5.90); RED CELL DISTRIBUTION WIDTH 14.4 % (11.5-14.5); WHITE BLOOD COUNT 7.8 K/uL (4.8-10.8)
[2017-06-12 15:37] LABS: HEMOGLOBIN 12.5 g/dL (12.0-18.0); MEAN CELL VOLUME 86.3 fL (80.0-94.0)
[2017-06-12 15:44] LABS: INR 1.2; PROTHROMBIN TIME 13.5 SECONDS (9.7-12.2)
[2017-06-12 15:55] LABS: ALBUMIN 2.9 g/dL (3.5-5.0); ALT/SGPT 17 U/L (21-72); AST/SGOT 27 U/L (17-59); BLOOD UREA NITROGEN 6 mg/dL (9-20); CALCIUM 7.8 mg/dl (8.6-10.4); GFR AFRICAN-AMERICAN > 60; GFR NON-AFRICAN AMERICAN > 60; LIPASE 47 U/L (23-300)
[2017-06-12 15:58] LABS: ALB/GLOB RATIO 0.7 (1.0-2.1)
[2017-06-12] MEDS ORDERED: Potassium Chloride 20 mEq ER Tab PO STA (16:08)
[2017-06-12] MEDS ORDERED: Potassium Chloride 20 mEq ER Tab PO ONE (16:21)
[2017-06-12] MEDS ORDERED: Iodixanol 320 MG/ML 100 ML BOTTLE IV ONE (16:38)
--- NOTE | 2017-06-12 18:07 | CT ---
PROCEDURE: CT Abdomen and Pelvis with contrast HISTORY: abd pain- distention over 2 months- C. COMPARISON: 03/20/2016 CT abdomen and pelvis 03/03/2017 abdominal ultrasound ascites was not apparent on the prior ultrasound. TECHNIQUE: Contrast dose: 100 cc Visipaque 320. Radiation dose: Total exam DLP = 484.32 mGy-cm. This CT exam was performed using one or more of the following dose reduction techniques: Automated exposure control, adjustment of the mA and/or kV according to patient size, and/or use of iterative reconstruction technique. FINDINGS: LOWER THORAX: Unremarkable. LIVER: Cirrhotic liver based on contour and hypertrophy of the caudate lobe. Unremarkable portal venous system without evidence of portal vein thrombosis. . No focal masses GALLBLADDER AND BILE DUCTS: Unremarkable. PANCREAS: Unremarkable. No gross lesion or ductal dilatation. SPLEEN: Unremarkable. ADRENALS: Unremarkable. No mass. KIDNEYS AND URETERS: Unremarkable. No hydronephrosis. No solid mass. VASCULATURE: Unremarkable. No aortic aneurysm. BOWEL: Unremarkable. No obstruction. No gross mural thickening. The wall of the colon appears somewhat edematous but there are no additional manifestations/stigmata of colitis. Similar findings were seen on the prior CT scan. APPENDIX: Normal appendix. PERITONEUM: Large volume intra-abdominal and pelvic ascites a new finding compared to the prior CT scan. Mesenteric and omental thickening identified however, and in the absence of known malignancy, this is not felt to be clinically consequential. LYMPH NODES: Unremarkable. No enlarged lymph nodes. BLADDER: Unremarkable. REPRODUCTIVE: Unremarkable. BONES: No acute fracture. OTHER FINDINGS: None. IMPRESSION: 1. Large volume intra-abdominal and pelvic ascites a new finding compared to prior studies. 2. Cirrhotic appearing liver without evidence of portal vein abnormalities. Normal size spleen. Additional benign and/or incidental findings described above.
[2017-06-12 18:31] LABS: SQUAMOUS EPITHIAL 1 /hpf (0-5); URINE BACTERIA OCC (<OCC); URINE BILIRUBIN NEGATIVE (NEGATIVE); URINE CALCIUM OXALATE CRYSTALS RARE /hpf (<OCC); URINE CLARITY Clear (Clear); URINE COLOR Yellow (YELLOW); URINE GLUCOSE (UA) NORMAL (Normal); URINE LEUKOCYTE ESTERASE 1+ Leu/uL (Negative); URINE NITRATE NEGATIVE (NEGATIVE); URINE PROTEIN 1+ mg/dL (NEGATIVE)
[2017-06-12 18:32] LABS: URINE BLOOD 1+ (NEGATIVE)
--- NOTE | 2017-06-12 20:33 | CP.PCM.HP ---
<Alvaro Johnson - Last Filed: 06/13/17 04:04> History of Present Illness - History of Present Illness History of Present Illness: Medicine H/P CC: Abdominal distension and Abdominal pain HPI: Patient is a pleasant 57 M W/ a PMH of HCV and alcoholic cirrhosis who presents to the ED with a 1 month history of increasing abdominal distension and belly pain. It has become progressively worse. Laying down makes the pain better. He describes the pain as sharp/gassy. It has been constant since its onset. Severity 10/10 at the moment although patient looks comfortable. He denies any prior episodes. 2 months ago he come to the ED because of leg numbness and tingling and says he received an MRI but was never told the results. He continue to experience this leg pain/numbness. The pain in his abdomen is a located in the suprapubic area and flanks bilaterally. He denies any chest pain or SOB. He denies fevers or chills. He does admit to an 80 -90lb WL in the last 2 years. He also complains of food getting stuck in his throat when he eats and states this has been going on for several months. He only eats one meal a day (Dinner). No other complaints at this time. ROS: As above PMD: has not seen a doctor in "many years" PMH: HCV, alcoholic cirrhosis PSH: None FH: none SH: Smokes 1/2ppd for 40+ years, Drinking heavly for 40+ years and for 20 years admits to drinking 1/5 -1 quart of vodka. He has not drank alcohol in the last 8 months. 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 He would use drugs intravenously and thru his nose. Currently smokes marijuana daily. Spent some time in half[place] in the past. 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 Lives with his . Meds: none All: None Present on Admission - Present on Admission Any Indicators Present on Admission: No Review of Systems - Review of Systems Review of Systems: Per hpi Past Patient History - Infectious Disease Hx of Infectious Diseases: None - Past Medical History & Family History Past Medical History?: Yes - Past Social History Smoking Status: Heavy Smoker > 10 Cigarettes Daily - CARDIAC Hx Cardiac Disorders: No - PULMONARY Hx Respiratory Disorders: No - NEUROLOGICAL Hx Neurological Disorder: No - HEENT Hx HEENT Problems: No - ENDOCRINE/METABOLIC Hx Endocrine Disorders: No - HEMATOLOGICAL/ONCOLOGICAL Hx Human Immunodeficiency Virus (HIV): No - INTEGUMENTARY Hx Dermatological Problems: No - MUSCULOSKELETAL/RHEUMATOLOGICAL Hx Falls: Yes - GASTROINTESTINAL Hx Gastritis: Yes - GENITOURINARY/GYNECOLOGICAL Hx Genitourinary Disorders: No - PSYCHIATRIC Hx Substance Use: No - SURGICAL HISTORY Hx Surgeries: Yes Other/Comment: colonoscopy 05/2017 - ANESTHESIA Hx Anesthesia: Yes Hx Anesthesia Reactions: No Meds Allergies/Adverse Reactions: Allergies Allergy/AdvReac Type Severity Reaction Status Date / Time No Known Allergies Allergy Verified 06/12/17 14:21 Physical Exam - Constitutional Appears: Non-toxic, No Acute Distress - Head Exam Head Exam: ATRAUMATIC, NORMAL INSPECTION, NORMOCEPHALIC - Eye Exam Eye Exam: EOMI. absent: Scleral icterus Pupil Exam: NORMAL ACCOMODATION, PERRL - ENT Exam ENT Exam: Mucous Membranes Moist - Respiratory Exam Respiratory Exam: Wheezes (RLL), NORMAL BREATHING PATTERN - Cardiovascular Exam Cardiovascular Exam: REGULAR RHYTHM - GI/Abdominal Exam GI & Abdominal Exam: Distended, Normal Bowel Sounds, Soft. absent: Rigid, Tenderness Additional comments: shifiting dullness, fluid wave, dullness to percussion on bilateral flanks with the patient supine - Extremities Exam Extremities exam: Positive for: pedal pulses present. Negative for: joint swelling, tenderness - Neurological Exam Neurological exam: Alert, Oriented x3 - Expanded Neurological Exam Expanded Sensory exam: Lower Extremity Light Touch: Abnormal Left (states b/l feet feel numb) - Skin Skin Exam: Dry, Intact, Normal Color, Warm Results - Vital Signs Recent Vital Signs: Last Vital Signs Temp 97.4 F L 06/12/17 14:16 Pulse 87 06/12/17 18:12 Resp 20 06/12/17 18:12 BP 111/80 06/12/17 18:12 Pulse Ox 100 06/12/17 18:46 - Labs Result Diagrams: 06/12/17 15:30 06/12/17 15:30 Labs: Laboratory Results - last 24 hr 06/12/17 06/12/17 06/12/17 15:30 15:30 15:30 WBC 7.8 RBC 4.25 L Hgb 12.5 D Hct 36.7 MCV 86.3 D MCH 29.4 MCHC 34.1 RDW 14.4 Plt Count 193 D MPV 9.7 Neut % (Auto) 65.0 Lymph % (Auto) 21.0 Petroleum % (Auto) 12.2 H Eos % (Auto) 1.3 Baso % (Auto) 0.5 Neut # 5.0 Lymph # 1.6 Petroleum # 0.9 H Eos # 0.1 Baso # 0.0 PT 13.5 H INR 1.2 APTT 40 H Sodium 135 Potassium 3.3 L Chloride 102 Carbon Dioxide 29 Anion Gap 7 L BUN 6 L Creatinine 0.8 Est GFR ( Amer) > 60 Est GFR (Non-Af Amer) > 60 Random Glucose 102 Calcium 7.8 L Total Bilirubin 1.0 AST 27 ALT 17 L D Alkaline Phosphatase 116 Ammonia Total Protein 7.0 Albumin 2.9 L Globulin 4.1 H Albumin/Globulin Ratio 0.7 L Lipase 47 Urine Color Urine Clarity Urine pH Ur Specific [place] Urine Protein Urine Glucose (UA) Urine Ketones Urine Blood Urine Nitrate Urine Bilirubin Urine Urobilinogen Ur Leukocyte Esterase Urine WBC (Auto) Urine RBC (Auto) Ur Squamous Epith Cells Ur Transition Epith Cell Calcium Oxalate Crystal Urine Bacteria Blood Type Antibody Screen 06/12/17 06/12/17 06/12/17 15:30 15:30 18:10 WBC RBC Hgb Hct MCV MCH MCHC RDW Plt Count MPV Neut % (Auto) Lymph % (Auto) Petroleum % (Auto) Eos % (Auto) Baso % (Auto) Neut # Lymph # Petroleum # Eos # Baso # PT INR APTT Sodium Potassium Chloride Carbon Dioxide Anion Gap BUN Creatinine Est GFR ( Amer) Est GFR (Non-Af Amer) Random Glucose Calcium Total Bilirubin AST ALT Alkaline Phosphatase Ammonia < 9 L Total Protein Albumin Globulin Albumin/Globulin Ratio Lipase Urine Color Yellow Urine Clarity Clear Urine pH 6.0 Ur Specific [place] 1.054 H Urine Protein 1+ H Urine Glucose (UA) Normal Urine Ketones Trace Urine Blood 1+ H Urine Nitrate Negative Urine Bilirubin Negative Urine Urobilinogen 2.0 Ur Leukocyte Esterase 1+ H Urine WBC (Auto) 11 H Urine RBC (Auto) 4 H Ur Squamous Epith Cells 1 Ur Transition Epith Cell < 1 Calcium Oxalate Crystal Rare Urine Bacteria Occ H Blood Type O POSITIVE Antibody Screen Negative Assessment & Plan (1) Ascites Assessment and Plan: GI (Aleks) Needs follow up with GI to monitor ascites, Consider transplant? TIPS? Needs paracentesis, will likely tap at bedside tomorrow Ascitic fluid analysis: * Albumin * amylase * cell count * glucose * LDH * Total protein * culture * gram stain * AFP - malig? Calculate SAAG HCV Viral Load Started on Propanolol 5 TID clinically dry so did not start any diuretics given history of alcohol use will give thiamine and multivitamin Status: Acute Priority: High <BrendaGangaHarjinder P - Last Filed: 06/13/17 06:17> Results - Vital Signs Recent Vital Signs: Last Vital Signs Temp 97.6 F 06/13/17 00:00 Pulse 80 06/13/17 00:00 Resp 20 06/13/17 00:00 BP 108/65 06/13/17 00:00 Pulse Ox 98 06/13/17 00:00 - Labs Result Diagrams: 06/12/17 15:30 06/12/17 15:30 Labs: Laboratory Results - last 24 hr 06/12/17 06/12/17 06/12/17 15:30 15:30 15:30 WBC 7.8 RBC 4.25 L Hgb 12.5 D Hct 36.7 MCV 86.3 D MCH 29.4 MCHC 34.1 RDW 14.4 Plt Count 193 D MPV 9.7 Neut % (Auto) 65.0 Lymph % (Auto) 21.0 Petroleum % (Auto) 12.2 H Eos % (Auto) 1.3 Baso % (Auto) 0.5 Neut # 5.0 Lymph # 1.6 Petroleum # 0.9 H Eos # 0.1 Baso # 0.0 PT 13.5 H INR 1.2 APTT 40 H Sodium 135 Potassium 3.3 L Chloride 102 Carbon Dioxide 29 Anion Gap 7 L BUN 6 L Creatinine 0.8 Est GFR ( Amer) > 60 Est GFR (Non-Af Amer) > 60 Random Glucose 102 Calcium 7.8 L Total Bilirubin 1.0 AST 27 ALT 17 L D Alkaline Phosphatase 116 Ammonia Total Protein 7.0 Albumin 2.9 L Globulin 4.1 H Albumin/Globulin Ratio 0.7 L Lipase 47 Urine Color Urine Clarity Urine pH Ur Specific [place] Urine Protein Urine Glucose (UA) Urine Ketones Urine Blood Urine Nitrate Urine Bilirubin Urine Urobilinogen Ur Leukocyte Esterase Urine WBC (Auto) Urine RBC (Auto) Ur Squamous Epith Cells Ur Transition Epith Cell Calcium Oxalate Crystal Urine Bacteria Blood Type Antibody Screen 06/12/17 06/12/17 06/12/17 15:30 15:30 18:10 WBC RBC Hgb Hct MCV MCH MCHC RDW Plt Count MPV Neut % (Auto) Lymph % (Auto) Petroleum % (Auto) Eos % (Auto) Baso % (Auto) Neut # Lymph # Petroleum # Eos # Baso # PT INR APTT Sodium Potassium Chloride Carbon Dioxide Anion Gap BUN Creatinine Est GFR ( Amer) Est GFR (Non-Af Amer) Random Glucose Calcium Total Bilirubin AST ALT Alkaline Phosphatase Ammonia < 9 L Total Protein Albumin Globulin Albumin/Globulin Ratio Lipase Urine Color Yellow Urine Clarity Clear Urine pH 6.0 Ur Specific [place] 1.054 H Urine Protein 1+ H Urine Glucose (UA) Normal Urine Ketones Trace Urine Blood 1+ H Urine Nitrate Negative Urine Bilirubin Negative Urine Urobilinogen 2.0 Ur Leukocyte Esterase 1+ H Urine WBC (Auto) 11 H Urine RBC (Auto) 4 H Ur Squamous Epith Cells 1 Ur Transition Epith Cell < 1 Calcium Oxalate Crystal Rare Urine Bacteria Occ H Blood Type O POSITIVE Antibody Screen Negative Attending/Attestation - Attestation I have personally seen and examined this patient.: Yes I have fully participated in the care of the patient.: Yes I have reviewed all pertinent clinical information: Yes Notes (Text): Assessment * Symptomatic abd distension from ascitis most likely 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
[2017-06-13 00:30] VITALS: RESP 20
[2017-06-13 07:33] LABS: EOS # 0.1 K/uL (0.0-0.7); MEAN PLATELET VOLUME 9.9 fL (7.2-11.7); NEUT # 3.2 K/uL (1.8-7.0)
[2017-06-13 07:46] LABS: BASO % 0.6 % (0.0-2.0); EOS % 2.3 % (0.0-4.0); LYMPH # 1.1 K/uL (1.0-4.3); LYMPH % 21.1 % (20.0-40.0); MEAN CELL VOLUME 85.8 fL (80.0-94.0); MEAN CORPUSCULAR HEMOGLOBIN 29.3 pg (27.0-31.0); MEAN CORPUSCULAR HGB CONC 34.2 g/dL (33.0-37.0); MONO # 0.8 K/uL (0.0-0.8); MONO % 15.8 % (0.0-10.0); NEUT % 60.2 % (50.0-75.0); NRBC % 0.1 % (0.0-2.0); RBC 3.55 Mil/uL (4.40-5.90); RED CELL DISTRIBUTION WIDTH 14.8 % (11.5-14.5); WHITE BLOOD COUNT 5.3 K/uL (4.8-10.8)
[2017-06-13 07:56] LABS: HEMOGLOBIN 10.4 g/dL (12.0-18.0)
[2017-06-13 08:25] LABS: ALB/GLOB RATIO 0.7 (1.0-2.1); ALBUMIN 2.3 g/dL (3.5-5.0); ALT/SGPT 13 U/L (21-72); AST/SGOT 17 U/L (17-59); BLOOD UREA NITROGEN 5 mg/dL (9-20); CALCIUM 7.2 mg/dl (8.6-10.4); GFR AFRICAN-AMERICAN > 60; GFR NON-AFRICAN AMERICAN > 60
--- NOTE | 2017-06-13 09:05 | CP.PCM.PN ---
<Devin Benites - Last Filed: 06/13/17 18:29> Subjective - Date & Time of Evaluation Date of Evaluation: 06/13/17 Time of Evaluation: 09:15 - Subjective Subjective: Medicine progress note for Dr. Peoples Patient seen and examined at bedside. Patient reports that he is feeling fine and has no acute complaints at this moment. Patient is eating well. Patient denies abdominal pain, nausea, vomiting, dizziness, fatigue, blood in urine or stools. Objective - Vital Signs/Intake and Output Vital Signs (last 24 hours): Temp Pulse Resp BP Pulse Ox 98.5 F 86 20 101/67 97 06/13/17 07:51 06/13/17 07:51 06/13/17 07:51 06/13/17 07:51 06/13/17 07:51 Intake and Output: 06/13/17 06/13/17 06:59 18:59 Intake Total 180 Balance 180 - Medications Medications: Current Medications Multivitamins (Hexavitamin) 1 tab PO DAILY [facility] Pneumococcal Polyvalent Vaccine (Pneumovax 23 Vaccine) 0.5 ml IM .ONCE ONE Stop: 06/14/17 10:01 Potassium Chloride (K-Dur 20 Meq Er Tab) 40 meq PO Q4H [facility] Stop: 06/13/17 13:01 Propranolol HCl (Inderal) 10 mg PO QID [facility] Thiamine HCl (Vitamin B1 Tab) 100 mg PO DAILY [facility] - Labs Labs: 06/13/17 07:14 06/13/17 06:16 PT 13.5 SECONDS (9.7-12.2) H 06/12/17 15:30 INR 1.2 06/12/17 15:30 APTT 40 SECONDS (21-34) H 06/12/17 15:30 - Constitutional Appears: No Acute Distress - Head Exam Head Exam: ATRAUMATIC, NORMOCEPHALIC - Eye Exam Eye Exam: EOMI, Normal appearance - ENT Exam ENT Exam: Mucous Membranes Moist - Respiratory Exam Respiratory Exam: Wheezes, NORMAL BREATHING PATTERN. absent: Rales, Rhonchi - Cardiovascular Exam Cardiovascular Exam: REGULAR RHYTHM, +S1, +S2 - GI/Abdominal Exam GI & Abdominal Exam: Distended, Soft, Normal Bowel Sounds. absent: Tenderness Additional comments: fluid shift noted - Extremities Exam Extremities Exam: absent: Pedal Edema, Tenderness - Neurological Exam Neurological Exam: Alert, Awake, Oriented x3 - Psychiatric Exam Psychiatric exam: Normal Affect, Normal Mood - Skin Skin Exam: Dry, Intact, Normal Color, Warm Assessment and Plan - Assessment and Plan (Free Text) Plan: Ascites First time patient has ever had ascites Needs follow up as an outpatient to monitor ascites Needs paracentesis, tap at bedside. Drained 5.5L of ascitic fluid. see procedure note for details Replenished with Albumin 12.5gm vials x3 Ascitic fluid analysis: * Albumin * amylase * cell count * glucose * LDH * Total protein * culture * gram stain * AFP Calculate SAAG HCV Viral Load Started on Propanolol 5 TID clinically dry so no diuretics given history of alcohol use will give thiamine and multivitamin Disposition: Will need outpatient followup at [facility] and GI clinic. Case DW Dr. Richelle Benites PGY-1 <Martin Peoples H - Last Filed: 06/13/17 18:50> Objective - Vital Signs/Intake and Output Vital Signs (last 24 hours): Temp Pulse Resp BP Pulse Ox 97.7 F 89 20 119/83 100 06/13/17 15:00 06/13/17 15:00 06/13/17 15:00 06/13/17 15:00 06/13/17 15:00 Intake and Output: 06/13/17 06/13/17 06:59 18:59 Intake Total 180 240 Balance 180 240 - Medications Medications: Current Medications Albumin Human (Albumin Human 25% (12.5 Gm/50 Ml)) 12.5 gm IV Q1H [facility] Stop: 06/13/17 20:31 Multivitamins (Hexavitamin) 1 tab PO DAILY [facility] Last Admin: 06/13/17 09:14 Dose: 1 tab Pneumococcal Polyvalent Vaccine (Pneumovax 23 Vaccine) 0.5 ml IM .ONCE ONE Stop: 06/14/17 10:01 Propranolol HCl (Inderal) 10 mg PO QID [facility] Last Admin: 06/13/17 14:57 Dose: Not Given Thiamine HCl (Vitamin B1 Tab) 100 mg PO DAILY [facility] Last Admin: 06/13/17 09:13 Dose: 100 mg - Labs Labs: 06/13/17 07:14 06/13/17 06:16 PT 13.5 SECONDS (9.7-12.2) H 06/12/17 15:30 INR 1.2 06/12/17 15:30 APTT 40 SECONDS (21-34) H 06/12/17 15:30 Attending/Attestation - Attestation I have personally seen and examined this patient.: Yes I have fully participated in the care of the patient.: Yes I have reviewed all pertinent clinical information, including history, physical exam and plan: Yes Notes (Text): 06/13/17 18:50 Medical attending: Patient was seen and examined by me, agrees the above note by the medical office secretary. Today we had the patient undergo a diagnostic as well as therapeutic paracentesis. There we got consent from the patient. He tolerated the procedure very well. I was present during the procedure and 5-1/2 L were removed. We did this with the help of ultrasound guidance. We prepped with chlorhexidine and Betadine 1% lidocaine was applied to the area to apply local anesthesia. We then draped the area with the blue sterile field advanced paracentesis needle into the area with the ascites fluid aspirated the fluid. And so 5 and half liters were removed. We checked the blood pressure as each liter was removed and his systolic blood pressure never was less than 100. He tolerated this very well. After the procedure was finished we expect to the patient that he's got a be very slow and methodical as he tries to get out of bed. As he may become very dizzy after such a procedure. We are going to give him several runs of IV albumen. I explained to the patient as well as the patient's family member that normally the patient's go home the next day however since this is his very first episode of ascites were have to send it off for cytology the fluid so he might still go home tomorrow but more likely on Friday when the results return Thank you very much, Martin Peoples
[2017-06-13 09:10] LABS: MAGNESIUM 1.7 mg/dL (1.6-2.3)
[2017-06-13] MEDS: Potassium Chloride 20 mEq ER Tab PO SCH ×2 (09:13→14:59)
[2017-06-13] MEDS: Multiple Vitamins Tab PO SCH (09:14)
[2017-06-13] MEDS ORDERED: Propranolol 5 mg Tab PO SCH (10:00)
[2017-06-13] MEDS ORDERED: Potassium Chloride 20 mEq ER Tab PO ONE (15:00)
[2017-06-13 18:18] LABS: BODY FLUID TYPE PERITONEAL
[2017-06-13 18:30] LABS: BF GROSS APPEARANCE CLEAR (CLEAR)
--- NOTE | 2017-06-13 18:36 | PCM.PROC ---
Procedures Attestation:: I certify that I have explained the specified Operation(s) or Procedure(s), risks, benefits and reasonable alternatives to the Patient and/or other person responsible. The opportunity was given to ask questions and all questions answered - Paracentesis Consent Obtained: written consent Time Out Performed: Yes Indication: Ascites Procedure: therapeutic paracentesis, diagnostic paracentesis Location: RLQ Local Anesthetic Used: lidocaine 1%
[2017-06-13] MEDS: Albumin Human 25% (12.5 gm/50 ml) IV SCH ×3 (19:00→21:00)
[2017-06-13 20:14] LABS: BODY FLUID MONO/MACROPHAGE 7 % (0-0)
[2017-06-14 08:02] VITALS: PULSE 71; TEMP 98.4; O2SAT 95
[2017-06-14 08:23] LABS: BASO # 0.1 K/uL (0.0-0.2); BASO % 1.3 % (0.0-2.0); EOS # 0.1 K/uL (0.0-0.7); EOS % 1.8 % (0.0-4.0); HEMOGLOBIN 9.7 g/dL (12.0-18.0); LYMPH # 1.6 K/uL (1.0-4.3); LYMPH % 31.9 % (20.0-40.0); MEAN CELL VOLUME 86.4 fL (80.0-94.0); MEAN CORPUSCULAR HEMOGLOBIN 28.9 pg (27.0-31.0); MEAN CORPUSCULAR HGB CONC 33.4 g/dL (33.0-37.0); MEAN PLATELET VOLUME 9.9 fL (7.2-11.7); MONO # 0.7 K/uL (0.0-0.8); MONO % 14.4 % (0.0-10.0); NEUT # 2.5 K/uL (1.8-7.0); NEUT % 50.6 % (50.0-75.0); RBC 3.34 Mil/uL (4.40-5.90); RED CELL DISTRIBUTION WIDTH 14.7 % (11.5-14.5)
[2017-06-14 08:46] LABS: ALB/GLOB RATIO 0.8 (1.0-2.1); ALBUMIN 2.4 g/dL (3.5-5.0); ALT/SGPT 18 U/L (21-72); AST/SGOT 17 U/L (17-59); BLOOD UREA NITROGEN 5 mg/dL (9-20); CALCIUM 7.2 mg/dl (8.6-10.4); GFR AFRICAN-AMERICAN > 60; GFR NON-AFRICAN AMERICAN > 60
[2017-06-14] MEDS ORDERED: Albumin Human 25% (12.5 gm/50 ml) IV ONE ×2 (09:00→11:30)
--- NOTE | 2017-06-14 09:25 | CP.PCM.DIS ---
<Gayathri Turner - Last Filed: 06/14/17 13:47> Provider - Provider Date of Admission: 06/12/17 18:38 Attending physician: Harjinder Gutierrez MD Primary care physician: none. patient to follow up in [facility] Consults: Dr. Fink - KANDICE Time Spent in preparation of Discharge (in minutes): 35 Diagnosis - Discharge Diagnosis (1) Ascites Status: Acute Priority: High (2) Hepatitis C infection Status: Acute (3) Alcohol abuse Status: Acute Hospital Course - Lab Results Lab Results: Micro Results 06/12/17 18:20 Ascitic Fluid Gram Stain - Final 06/12/17 15:10 Blood Blood Culture - Preliminary NO GROWTH AFTER 24 HOURS 06/12/17 15:50 Blood Blood Culture - Preliminary NO GROWTH AFTER 24 HOURS Most Recent Lab Values WBC 5.0 K/uL (4.8-10.8) 06/14/17 07:52 RBC 3.34 Mil/uL (4.40-5.90) L 06/14/17 07:52 Hgb 9.7 g/dL (12.0-18.0) L 06/14/17 07:52 Hct 28.9 % (35.0-51.0) L 06/14/17 07:52 MCV 86.4 fL (80.0-94.0) 06/14/17 07:52 MCH 28.9 pg (27.0-31.0) 06/14/17 07:52 MCHC 33.4 g/dL (33.0-37.0) 06/14/17 07:52 RDW 14.7 % (11.5-14.5) H 06/14/17 07:52 Plt Count 117 K/uL (130-400) L D 06/14/17 07:52 MPV 9.9 fL (7.2-11.7) 06/14/17 07:52 Neut % (Auto) 50.6 % (50.0-75.0) 06/14/17 07:52 Lymph % (Auto) 31.9 % (20.0-40.0) 06/14/17 07:52 Keith % (Auto) 14.4 % (0.0-10.0) H 06/14/17 07:52 Eos % (Auto) 1.8 % (0.0-4.0) 06/14/17 07:52 Baso % (Auto) 1.3 % (0.0-2.0) 06/14/17 07:52 Neut # 2.5 K/uL (1.8-7.0) 06/14/17 07:52 Lymph # 1.6 K/uL (1.0-4.3) 06/14/17 07:52 Keith # 0.7 K/uL (0.0-0.8) 06/14/17 07:52 Eos # 0.1 K/uL (0.0-0.7) 06/14/17 07:52 Baso # 0.1 K/uL (0.0-0.2) 06/14/17 07:52 PT 13.5 SECONDS (9.7-12.2) H 06/12/17 15:30 INR 1.2 06/12/17 15:30 APTT 40 SECONDS (21-34) H 06/12/17 15:30 Sodium 134 mmol/L (132-148) 06/14/17 07:52 Potassium 3.8 mmol/L (3.6-5.2) 06/14/17 07:52 Chloride 107 mmol/L (98-107) 06/14/17 07:52 Carbon Dioxide 26 mmol/L (22-30) 06/14/17 07:52 Anion Gap 5 (10-20) L 06/14/17 07:52 BUN 5 mg/dL (9-20) L 06/14/17 07:52 Creatinine 0.7 mg/dL (0.8-1.5) L 06/14/17 07:52 Est GFR ( Amer) > 60 06/14/17 07:52 Est GFR (Non-Af Amer) > 60 06/14/17 07:52 Random Glucose 77 mg/dL (75-110) 06/14/17 07:52 Calcium 7.2 mg/dl (8.6-10.4) L 06/14/17 07:52 Magnesium 1.7 mg/dL (1.6-2.3) 06/13/17 06:16 Total Bilirubin 0.7 mg/dL (0.2-1.3) 06/14/17 07:52 AST 17 U/L (17-59) 06/14/17 07:52 ALT 18 U/L (21-72) L D 06/14/17 07:52 Alkaline Phosphatase 71 U/L (38-126) 06/14/17 07:52 Ammonia < 9 umol/L (9-33) L 06/12/17 15:30 Total Protein 5.3 g/dL (6.3-8.3) L 06/14/17 07:52 Albumin 2.4 g/dL (3.5-5.0) L 06/14/17 07:52 Globulin 2.9 gm/dL (2.2-3.9) 06/14/17 07:52 Albumin/Globulin Ratio 0.8 (1.0-2.1) L 06/14/17 07:52 Lipase 47 U/L (23-300) 06/12/17 15:30 Alpha Fetoprotein 2.3 ng/mL (0.0-7.5) 06/14/17 07:52 Urine Color Yellow (YELLOW) 06/12/17 18:10 Urine Clarity Clear (Clear) 06/12/17 18:10 Urine pH 6.0 (5.0-8.0) 06/12/17 18:10 Ur Specific [place] 1.054 (1.003-1.030) H 06/12/17 18:10 Urine Protein 1+ mg/dL (NEGATIVE) H 06/12/17 18:10 Urine Glucose (UA) Normal mg/dL (Normal) 06/12/17 18:10 Urine Ketones Trace mg/dL (NEGATIVE) 06/12/17 18:10 Urine Blood 1+ (NEGATIVE) H 06/12/17 18:10 Urine Nitrate Negative (NEGATIVE) 06/12/17 18:10 Urine Bilirubin Negative (NEGATIVE) 06/12/17 18:10 Urine Urobilinogen 2.0 mg/dL (0.2-1.0) 06/12/17 18:10 Ur Leukocyte Esterase 1+ Jan/uL (Negative) H 06/12/17 18:10 Urine WBC (Auto) 11 /hpf (0-5) H 06/12/17 18:10 Urine RBC (Auto) 4 /hpf (0-3) H 06/12/17 18:10 Ur Squamous Epith Cells 1 /hpf (0-5) 06/12/17 18:10 Ur Transition Epith Cell < 1 /hpf (0-3) 06/12/17 18:10 Calcium Oxalate Crystal Rare /hpf (<OCC) 06/12/17 18:10 Urine Bacteria Occ (<OCC) H 06/12/17 18:10 Fluid Source Peritoneal 06/13/17 18:16 Fluid Appearance Clear (CLEAR) 06/13/17 18:16 Fluid WBC 59.0 /mm3 (0.0-300.0) 06/13/17 18:16 Fluid RBC 37.0 /mm3 (0.0-0.0) H 06/13/17 18:16 Fluid Tot Cell Count TEST NOT PERFORMED 06/13/17 18:16 Fluid Neutrophils 4.0 % (0-0) H 06/13/17 18:16 Fluid Lymphocytes 89.0 % (0-0) H 06/13/17 18:16 Fld Monocyte/Macrophag 7 % (0-0) H 06/13/17 18:16 Fluid Comment 06/13/17 18:16 Stool Occult Blood Negative (NEGATIVE) 06/13/17 22:52 Blood Type O POSITIVE 06/12/17 15:30 Antibody Screen Negative 06/12/17 15:30 - Hospital Course Hospital Course: On admission: Patient is a pleasant 57 M W/ a PMH of HCV and alcoholic cirrhosis who presents to the ED with a 1 month history of increasing abdominal distension and belly pain. It has become progressively worse. Laying down makes the pain better. He describes the pain as sharp/gassy. It has been constant since its onset. Severity 10/10 at the moment although patient looks comfortable. He denies any prior episodes. 2 months ago he come to the ED because of leg numbness and tingling and says he received an MRI but was never told the results. He continue to experience this leg pain/numbness. The pain in his abdomen is a located in the suprapubic area and flanks bilaterally. He denies any chest pain or SOB. He denies fevers or chills. He does admit to an 80 -90lb WL in the last 2 years. He also complains of food getting stuck in his throat when he eats and states this has been going on for several months. He only eats one meal a day (Dinner). No other complaints at this time. During hospital stay: CT abd pelvis was with iv contrast showing patent portal vein with large volume ascites. GI was consulted and the patient was started on propanolol. Patient had paracentesis performed on 06/13. Fluid analysis did not shows signs of SBP of infection. 5.5 L of ascitic fluid as drained. Patient had 5 doses of albumin after the procedure. Patient tolerated well. He was given thiamine and MV for hx of alcohol use. Patient is stable for discharge home today. Patient is to call and make an appointment to follow up in the [facility] within 1-2 weeks of discharge. Patient is to take the following medications: Propanolol 10mg by mouth three times a day and Lasix 20mg once by mouth daily. Medications were sent to ANNMARIE at [facility] (patient's preferred pharmacy) Patient is to return to the emergency room if symptoms return. All instructions explained to the patient and he agrees. Discharge Exam - Head Exam Head Exam: ATRAUMATIC, NORMOCEPHALIC - Eye Exam Eye Exam: EOMI Pupil Exam: NORMAL ACCOMODATION - Respiratory Exam Respiratory Exam: Clear to PA & Lateral, NORMAL BREATHING PATTERN. absent: Respiratory Distress - Cardiovascular Exam Cardiovascular Exam: REGULAR RHYTHM, +S1, +S2 - GI/Abdominal Exam GI & Abdominal Exam: Distended, Normal Bowel Sounds, Soft. absent: Firm, Guarding, Tenderness Additional comments: umbilical hernia - Extremities Exam Extremities exam: normal inspection - Back Exam Back exam: NORMAL INSPECTION - Neurological Exam Neurological exam: Alert, CN II-XII Intact, Normal Gait, Oriented x3 - Psychiatric Exam Psychiatric exam: Normal Affect, Normal Mood - Skin Skin Exam: Dry, Intact, Normal Color, Warm Discharge Plan - Discharge Medications Prescriptions: Furosemide [Lasix] 20 mg PO DAILY 14 Days #14 tablet Propranolol [Inderal] 10 mg PO TID 30 Days #90 tab Thiamine [Vitamin B1 Tab] 100 mg PO DAILY #30 tab - Follow Up Plan Condition: STABLE Disposition: HOME/ ROUTINE Instructions: Propranolol (By mouth), Furosemide (By mouth), Thiamine (Vitamin B-1) (By mouth), Cirrhosis (DC), Hepatitis C (DC), Ascites (DC) Additional Instructions: Patient is stable for discharge home today. Patient is to call and make an appointment to follow up in the [facility] within 1-2 weeks of discharge. Patient is to take the following medications: Propanolol 10mg by mouth three times a day and Lasix 20mg once by mouth daily. Medications were sent to ANNMARIE at [facility] (patient's preferred pharmacy) Patient is to return to the emergency room if symptoms return. All instructions explained to the patient and he agrees. Referrals: [facility] [Outside] <Martin Peoples - Last Filed: 06/14/17 14:15> Provider - Provider Date of Admission: 06/12/17 18:38 Attending physician: Harjinder Gutierrez MD Hospital Course - Lab Results Lab Results: Micro Results 06/12/17 18:00 Urine Urine Culture - Final No Growth (<1,000 CFU/ML) 06/12/17 18:20 Ascitic Fluid Gram Stain - Final 06/12/17 15:10 Blood Blood Culture - Preliminary NO GROWTH AFTER 24 HOURS 06/12/17 15:50 Blood Blood Culture - Preliminary NO GROWTH AFTER 24 HOURS Most Recent Lab Values WBC 5.0 K/uL (4.8-10.8) 06/14/17 07:52 RBC 3.34 Mil/uL (4.40-5.90) L 06/14/17 07:52 Hgb 9.7 g/dL (12.0-18.0) L 06/14/17 07:52 Hct 28.9 % (35.0-51.0) L 06/14/17 07:52 MCV 86.4 fL (80.0-94.0) 06/14/17 07:52 MCH 28.9 pg (27.0-31.0) 06/14/17 07:52 MCHC 33.4 g/dL (33.0-37.0) 06/14/17 07:52 RDW 14.7 % (11.5-14.5) H 06/14/17 07:52 Plt Count 117 K/uL (130-400) L D 06/14/17 07:52 MPV 9.9 fL (7.2-11.7) 06/14/17 07:52 Neut % (Auto) 50.6 % (50.0-75.0) 06/14/17 07:52 Lymph % (Auto) 31.9 % (20.0-40.0) 06/14/17 07:52 Keith % (Auto) 14.4 % (0.0-10.0) H 06/14/17 07:52 Eos % (Auto) 1.8 % (0.0-4.0) 06/14/17 07:52 Baso % (Auto) 1.3 % (0.0-2.0) 06/14/17 07:52 Neut # 2.5 K/uL (1.8-7.0) 06/14/17 07:52 Lymph # 1.6 K/uL (1.0-4.3) 06/14/17 07:52 Keith # 0.7 K/uL (0.0-0.8) 06/14/17 07:52 Eos # 0.1 K/uL (0.0-0.7) 06/14/17 07:52 Baso # 0.1 K/uL (0.0-0.2) 06/14/17 07:52 Differential Comment 06/14/17 07:52 PT 13.5 SECONDS (9.7-12.2) H 06/12/17 15:30 INR 1.2 06/12/17 15:30 APTT 40 SECONDS (21-34) H 06/12/17 15:30 Sodium 134 mmol/L (132-148) 06/14/17 07:52 Potassium 3.8 mmol/L (3.6-5.2) 06/14/17 07:52 Chloride 107 mmol/L (98-107) 06/14/17 07:52 Carbon Dioxide 26 mmol/L (22-30) 06/14/17 07:52 Anion Gap 5 (10-20) L 06/14/17 07:52 BUN 5 mg/dL (9-20) L 06/14/17 07:52 Creatinine 0.7 mg/dL (0.8-1.5) L 06/14/17 07:52 Est GFR ( Amer) > 60 06/14/17 07:52 Est GFR (Non-Af Amer) > 60 06/14/17 07:52 Random Glucose 77 mg/dL (75-110) 06/14/17 07:52 Calcium 7.2 mg/dl (8.6-10.4) L 06/14/17 07:52 Magnesium 1.7 mg/dL (1.6-2.3) 06/13/17 06:16 Total Bilirubin 0.7 mg/dL (0.2-1.3) 06/14/17 07:52 AST 17 U/L (17-59) 06/14/17 07:52 ALT 18 U/L (21-72) L D 06/14/17 07:52 Alkaline Phosphatase 71 U/L (38-126) 06/14/17 07:52 Ammonia < 9 umol/L (9-33) L 06/12/17 15:30 Total Protein 5.3 g/dL (6.3-8.3) L 06/14/17 07:52 Albumin 2.4 g/dL (3.5-5.0) L 06/14/17 07:52 Globulin 2.9 gm/dL (2.2-3.9) 06/14/17 07:52 Albumin/Globulin Ratio 0.8 (1.0-2.1) L 06/14/17 07:52 Lipase 47 U/L (23-300) 06/12/17 15:30 Alpha Fetoprotein 2.3 ng/mL (0.0-7.5) 06/14/17 07:52 Urine Color Yellow (YELLOW) 06/12/17 18:10 Urine Clarity Clear (Clear) 06/12/17 18:10 Urine pH 6.0 (5.0-8.0) 06/12/17 18:10 Ur Specific [place] 1.054 (1.003-1.030) H 06/12/17 18:10 Urine Protein 1+ mg/dL (NEGATIVE) H 06/12/17 18:10 Urine Glucose (UA) Normal mg/dL (Normal) 06/12/17 18:10 Urine Ketones Trace mg/dL (NEGATIVE) 06/12/17 18:10 Urine Blood 1+ (NEGATIVE) H 06/12/17 18:10 Urine Nitrate Negative (NEGATIVE) 06/12/17 18:10 Urine Bilirubin Negative (NEGATIVE) 06/12/17 18:10 Urine Urobilinogen 2.0 mg/dL (0.2-1.0) 06/12/17 18:10 Ur Leukocyte Esterase 1+ Jan/uL (Negative) H 06/12/17 18:10 Urine WBC (Auto) 11 /hpf (0-5) H 06/12/17 18:10 Urine RBC (Auto) 4 /hpf (0-3) H 06/12/17 18:10 Ur Squamous Epith Cells 1 /hpf (0-5) 06/12/17 18:10 Ur Transition Epith Cell < 1 /hpf (0-3) 06/12/17 18:10 Calcium Oxalate Crystal Rare /hpf (<OCC) 06/12/17 18:10 Urine Bacteria Occ (<OCC) H 06/12/17 18:10 Fluid Source Peritoneal 06/13/17 18:16 Fluid Appearance Clear (CLEAR) 06/13/17 18:16 Fluid WBC 59.0 /mm3 (0.0-300.0) 06/13/17 18:16 Fluid RBC 37.0 /mm3 (0.0-0.0) H 06/13/17 18:16 Fluid Tot Cell Count TEST NOT PERFORMED 06/13/17 18:16 Fluid Neutrophils 4.0 % (0-0) H 06/13/17 18:16 Fluid Lymphocytes 89.0 % (0-0) H 06/13/17 18:16 Fld Monocyte/Macrophag 7 % (0-0) H 06/13/17 18:16 Fluid Comment 06/13/17 18:16 Stool Occult Blood Negative (NEGATIVE) 06/13/17 22:52 Blood Type O POSITIVE 06/12/17 15:30 Antibody Screen Negative 06/12/17 15:30 Attending/Attestation - Attestation I have personally seen and examined this patient.: Yes I have fully participated in the care of the patient.: Yes I have reviewed all pertinent clinical information, including history, physical exam and plan: Yes Notes (Text): 06/14/17 14:15 Medical attending: Patient was seen and examined by me, agrees the above note by the medical billing specialist. The patient tolerated the procedure very well yesterday. This morning we gave him 2 additional runs of IV albumen. He's can be on a very small dose of Lasix, Aldactone, and propranolol. I explained to him that he's currently careful as he stands up or sits up as he may become dizzy. I also explained this to the patient's family members well. Later on during the day of discharge the patient Thank you very much, Martin Peoples
[2017-06-14] MEDS: Multiple Vitamins Tab PO SCH (09:31)
[2017-06-14] MEDS ORDERED: Pneumococcal 23-Valent Vaccine IM ONE (10:00)
[2017-06-14] MEDS ORDERED: Influenza Vaccine 60 mcg/0.5 mL SYR (4YR UP) IM ONE (10:00)
[2017-06-14 13:16] VITALS: BP 105/67
[2017-06-17 17:13] LABS: GLUCOSE PERITONEAL FLUID 111 mg/dL; LDH PERITONEAL FLUID 40 U/L (<63); TOTAL PROTEIN PERITONEAL FLUID <3.0 g/dL
[2017-06-18 00:06] LABS: AMYLASE PERITONEAL FLUID 15 U/L
== END 2017-06-14 14:40 | disposition home or self-care (01) | DRG 202 ==
LOC: C.ER 14:07 → C.9E 18:38 → C.3T 21:46 → UNDODISIN 06-14 14:40
PROVIDERS: ADMIT Internal Medicine; ATTEND Internal Medicine
PROC: 0W9G3ZZ Drainage of Peritoneal Cavity, Percutaneous Approach (ICD-10-PCS; principal; 2017-06-13)
DX: K70.31 Alcoholic cirrhosis of liver with ascites (principal); K76.6 Portal hypertension; B19.20 Unspecified viral hepatitis C without hepatic coma; F12.90 Cannabis use, unspecified, uncomplicated; F17.210 Nicotine dependence, cigarettes, uncomplicated

== ENCOUNTER 2017-09-12 11:22 | Observation (INO) | payer OTHER ==
[2017-09-12 11:23] VITALS: BMI 22.6
[2017-09-12 12:51] LABS: BASO # 0.1 K/uL (0.0-0.2); BASO % 0.9 % (0.0-2.0); EOS # 0.2 K/uL (0.0-0.7); EOS % 3.5 % (0.0-4.0); LYMPH # 1.7 K/uL (1.0-4.3); LYMPH % 24.5 % (20.0-40.0); MEAN CELL VOLUME 87.9 fL (80.0-94.0); MEAN CORPUSCULAR HEMOGLOBIN 29.1 pg (27.0-31.0); MEAN CORPUSCULAR HGB CONC 33.1 g/dL (33.0-37.0); MEAN PLATELET VOLUME 9.6 fL (7.2-11.7); MONO # 0.8 K/uL (0.0-0.8); MONO % 10.8 % (0.0-10.0); NEUT # 4.3 K/uL (1.8-7.0); NEUT % 60.3 % (50.0-75.0); RBC 4.24 Mil/uL (4.40-5.90); RED CELL DISTRIBUTION WIDTH 15.2 % (11.5-14.5); WHITE BLOOD COUNT 7.1 K/uL (4.8-10.8)
[2017-09-12 12:53] LABS: HEMOGLOBIN 12.3 g/dL (12.0-18.0)
[2017-09-12 12:58] LABS: PROTHROMBIN TIME 11.5 SECONDS (9.7-12.2)
[2017-09-12 13:01] LABS: SQUAMOUS EPITHIAL 1 /hpf (0-5); URINE BILIRUBIN NEGATIVE (NEGATIVE); URINE BLOOD NEGATIVE (NEGATIVE); URINE CALCIUM OXALATE CRYSTALS OCC /hpf (<OCC); URINE CLARITY Hazy (Clear); URINE COLOR Amber (YELLOW); URINE GLUCOSE (UA) NORMAL (Normal); URINE LEUKOCYTE ESTERASE NEG Leu/uL (Negative); URINE PROTEIN NEGATIVE (NEGATIVE)
[2017-09-12 13:04] LABS: ALB/GLOB RATIO 0.8 (1.0-2.1); ALBUMIN 3.9 g/dL (3.5-5.0); GFR AFRICAN-AMERICAN > 60; GFR NON-AFRICAN AMERICAN > 60
[2017-09-12 13:06] LABS: ALT/SGPT 26 U/L (21-72); AST/SGOT 52 U/L (17-59); BLOOD UREA NITROGEN 15 mg/dL (9-20)
[2017-09-12 13:27] LABS: LIPASE 109 U/L (23-300)
--- NOTE | 2017-09-12 13:27 | C.PDOC ---
History Of Present Illness 57-year-old male, presents to the emergency department with complaints of abdominal pain and distention. Patient notes his abdomen has been progressively distended over the past several days, associated with nausea and non-bloody/non- bilious vomiting. Denies fever or chills. States his last paracentesis was four months ago. Denies fever, GI bleeding, dysuria, chills, chest pain, dizziness or any other associated symptoms. No other complaints at this time. Time Seen by Provider: 09/12/17 11:48 Chief Complaint (Nursing): Abdominal Pain History Per: Patient History/Exam Limitations: no limitations Onset/Duration Of Symptoms: Persistent Current Symptoms Are (Timing): Still Present Location Of Pain/Discomfort: Diffuse Radiation Of Pain To:: None Quality Of Discomfort: "Pain" Alleviating Factors: None Past Medical History Reviewed: Historical Data, Nursing Documentation, Vital Signs Vital Signs: Last Vital Signs Temp 98.1 F 09/12/17 15:00 Pulse 58 L 09/12/17 15:00 Resp 20 09/12/17 15:00 BP 113/73 09/12/17 15:00 Pulse Ox 97 09/12/17 16:49 - Medical History PMH: Gastritis, Hepatitis (C) - CareOOYYO Procedures DETOXIFICATION SERVICES FOR SUBSTANCE ABUSE TREATMENT (03/20/16) DRAINAGE OF PERITONEAL CAVITY, PERCUTANEOUS APPROACH (06/12/17) INSPECTION OF LOWER INTESTINAL TRACT, ENDO (03/06/17) INSPECTION OF UPPER INTESTINAL TRACT, ENDO (03/06/17) TRANSFUSE NONAUT RED BLOOD CELLS IN PERIPH VEIN, PERC (03/06/17) Family History: States: No Known Family Hx - Social History Hx Tobacco Use: Yes Hx Alcohol Use: No Hx Substance Use: No - Immunization History Hx Tetanus Toxoid Vaccination: Yes Hx Influenza Vaccination: No Hx Pneumococcal Vaccination: No Review Of Systems Except As Marked, All Systems Reviewed And Found Negative. Constitutional: Negative for: Fever Cardiovascular: Negative for: Chest Pain, Palpitations Respiratory: Negative for: Shortness of Breath Gastrointestinal: Positive for: Nausea, Vomiting, Abdominal Pain Musculoskeletal: Negative for: Back Pain Skin: Negative for: Rash Neurological: Negative for: Weakness, Numbness, Headache, Dizziness Physical Exam - Physical Exam Appears: Non-toxic, No Acute Distress Skin: Normal Color, Warm, Dry, No Rash Head: Atraumatic, Normacephalic Eye(s): bilateral: PERRL, EOMI Nose: Normal Oral Mucosa: Moist Lips: Normal Appearing Neck: Normal ROM Chest: Symmetrical Cardiovascular: Rhythm Regular, No Murmur Respiratory: Normal Breath Sounds, No Accessory Muscle Use Gastrointestinal/Abdominal: Soft, Tenderness (diffuse), Distention, No Guarding , No Rebound, Hernia (umbilical, reducible, soft.), Ascites ((+)fluid wave) Back: Normal Inspection, No CVA Tenderness Extremity: Normal ROM, No Deformity, No Swelling Neurological/Psych: Oriented x3, Normal Speech Gait: Steady ED Course And Treatment - Laboratory Results Result Diagrams: 09/12/17 12:47 09/12/17 12:47 O2 Sat by Pulse Oximetry: 100 (RA) Pulse Ox Interpretation: Normal Medical Decision Making Medical Decision Making: Plan: * Bloodwork * US Abdomen * UA * Reassess and Disposition The case was discussed with Dr. Holley (hospitalist) who agrees to admit the patient for obs and paracentesis. Disposition - Disposition Disposition: HOSPITALIZED Disposition Time: 13:00 Condition: STABLE - POA Present On Arrival: None - Clinical Impression Clinical Impression: Ascites, Abdominal pain - Scribe Statement The provider has reviewed the documentation as recorded by the Scribe (Salma Nicole) All medical record entries made by the Scribe were at my direction and personally dictated by me. I have reviewed the chart and agree that the record accurately reflects my personal performance of the history, physical exam, medical decision making, and the department course for this patient. I have also personally directed, reviewed, and agree with the discharge instructions and disposition.
[2017-09-12] MEDS: Albumin Human 25% (12.5 gm/50 ml) IV SCH ×5 (15:49→20:02)
--- NOTE | 2017-09-12 15:53 | CP.PCM.HP ---
History of Present Illness - History of Present Illness History of Present Illness: PGY1 H+P for Dr. Holley Patient is a 57 year old with a past medical history of Hep C, alcoholic cirrhosis, recurrent ascites and umbilical hernia. Patient is presenting to the emergency room with worsening abdominal pain. The patient reports that his abdomen has been getting larger and larger since his last paracentesis. He was admitted for abdominal pain and distention on 06/13/17. He had his first paracentesis done at that time and 5.5 liters of straw colored fluid was drained. He states that this pain is similar to last time. He came in today because he had an episode of non-bilious/non-bloody vomiting last night and this morning. He has been unable to eat since last night. He was instructed to follow up with the clinic down stairs but states he was unable to get in contact with them. He took his discharge medications but stopped because he did not have any more refills and no PMD. Denies fevers, chills, diarrhea, constipation, chest pain, shortness of breath. PMD: none, Patient failed to follow up in clinic after previous admission in May 2017 PMH: Hep C, alcoholic cirrhosis, recurrent ascites and umbilical hernia PSH: None FH: none SH: Smokes 1/2ppd for 40+ years, has not had a drink since February but used to drink heavily for 40+ years. 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 He used drugs both intravenously and nasally. Currently smokes marijuana daily. Spent some time in [facility] in the past. He is currently unable to work due to the pain. Lives with his . Meds: none - he filled his medications after the last visit but never got any refills because he never followed up in clinic. All: None Present on Admission - Present on Admission Any Indicators Present on Admission: No Review of Systems - Review of Systems All systems: reviewed and no additional remarkable complaints except (as per HPI ) Past Patient History - Infectious Disease Hx of Infectious Diseases: None - Past Medical History & Family History Past Medical History?: Yes - Past Social History Smoking Status: Heavy Smoker > 10 Cigarettes Daily - CARDIAC Hx Cardiac Disorders: No - PULMONARY Hx Respiratory Disorders: No - NEUROLOGICAL Hx Neurological Disorder: No - HEENT Hx HEENT Problems: No - ENDOCRINE/METABOLIC Hx Endocrine Disorders: No - HEMATOLOGICAL/ONCOLOGICAL Hx Human Immunodeficiency Virus (HIV): No - INTEGUMENTARY Hx Dermatological Problems: No - MUSCULOSKELETAL/RHEUMATOLOGICAL Hx Falls: Yes - GASTROINTESTINAL Hx Gastritis: Yes - GENITOURINARY/GYNECOLOGICAL Hx Genitourinary Disorders: No - PSYCHIATRIC Hx Substance Use: No - SURGICAL HISTORY Other/Comment: colonoscopy - ANESTHESIA Hx Anesthesia: Yes Hx Anesthesia Reactions: No Meds Allergies/Adverse Reactions: Allergies Allergy/AdvReac Type Severity Reaction Status Date / Time No Known Allergies Allergy Verified 09/12/17 11:26 Physical Exam - Constitutional Appears: No Acute Distress, Chronically Ill - Head Exam Head Exam: ATRAUMATIC, NORMOCEPHALIC - Eye Exam Eye Exam: EOMI, Normal appearance, Scleral icterus - ENT Exam ENT Exam: Mucous Membranes Moist - Respiratory Exam Respiratory Exam: Clear to Auscultation Bilateral, NORMAL BREATHING PATTERN. absent: Accessory Muscle Use, Rales, Rhonchi, Wheezes, Respiratory Distress - Cardiovascular Exam Cardiovascular Exam: REGULAR RHYTHM, +S1, +S2 - GI/Abdominal Exam GI & Abdominal Exam: Distended, Organomegaly (hepato/splenomegaly), Soft, Tenderness (RUQ). absent: Firm, Guarding, Rigid Additional comments: positive fluid wave. - Extremities Exam Extremities exam: Positive for: pedal pulses present. Negative for: calf tenderness, pedal edema - Neurological Exam Neurological exam: Alert, Oriented x3 - Psychiatric Exam Psychiatric exam: Normal Affect, Normal Mood - Skin Skin Exam: Dry, Warm Results - Vital Signs Recent Vital Signs: Last Vital Signs Temp 98.3 F 09/12/17 14:37 Pulse 59 L 09/12/17 14:37 Resp 20 09/12/17 14:37 BP 113/69 09/12/17 14:37 Pulse Ox 100 09/12/17 14:37 - Labs Result Diagrams: 09/12/17 12:47 09/12/17 12:47 Labs: Laboratory Results - last 24 hr 09/12/17 09/12/17 09/12/17 12:47 12:47 12:47 WBC 7.1 RBC 4.24 L Hgb 12.3 D Hct 37.2 MCV 87.9 MCH 29.1 MCHC 33.1 RDW 15.2 H Plt Count 162 MPV 9.6 Neut % (Auto) 60.3 Lymph % (Auto) 24.5 [place]nn % (Auto) 10.8 H Eos % (Auto) 3.5 Baso % (Auto) 0.9 Neut # (Auto) 4.3 Lymph # (Auto) 1.7 [place]nn # (Auto) 0.8 Eos # (Auto) 0.2 Baso # (Auto) 0.1 PT 11.5 INR 1.0 APTT 42 H Sodium Potassium Chloride Carbon Dioxide Anion Gap BUN Creatinine Est GFR ( Amer) Est GFR (Non-Af Amer) Random Glucose Calcium Total Bilirubin AST ALT Alkaline Phosphatase Total Protein Albumin Globulin Albumin/Globulin Ratio Lipase Urine Color April Urine Clarity Hazy Urine pH 5.0 Ur Specific [place] 1.023 Urine Protein Negative Urine Glucose (UA) Normal Urine Ketones Trace Urine Blood Negative Urine Nitrate Negative Urine Bilirubin Negative Urine Urobilinogen 2.0 Ur Leukocyte Esterase Neg Urine WBC (Auto) 5 Urine RBC (Auto) 1 Ur Squamous Epith Cells 1 Calcium Oxalate Crystal Occ H 09/12/17 12:47 WBC RBC Hgb Hct MCV MCH MCHC RDW Plt Count MPV Neut % (Auto) Lymph % (Auto) [place] % (Auto) Eos % (Auto) Baso % (Auto) Neut # (Auto) Lymph # (Auto) [place]nn # (Auto) Eos # (Auto) Baso # (Auto) PT INR APTT Sodium 143 Potassium 3.9 Chloride 106 Carbon Dioxide 24 Anion Gap 18 BUN 15 Creatinine 0.8 Est GFR ( Amer) > 60 Est GFR (Non-Af Amer) > 60 Random Glucose 78 Calcium 9.0 Total Bilirubin 0.7 AST 52 ALT 26 Alkaline Phosphatase 135 H D Total Protein 8.6 H Albumin 3.9 Globulin 4.8 H Albumin/Globulin Ratio 0.8 L Lipase 109 Urine Color Urine Clarity Urine pH Ur Specific [place] Urine Protein Urine Glucose (UA) Urine Ketones Urine Blood Urine Nitrate Urine Bilirubin Urine Urobilinogen Ur Leukocyte Esterase Urine WBC (Auto) Urine RBC (Auto) Ur Squamous Epith Cells Calcium Oxalate Crystal Assessment & Plan - Assessment and Plan (Free Text) Plan: Recurrent Ascites with history Hep C and alcoholic cirrhosis Second time patient has ever had ascites (1st time was 06/13/17) Bedside Paracentesis 09/12/17 - removed 4.5 L of straw colored fluid. Repleted with Albumin 12.5 gm vials x 4 Patient started on Lasix 20mg PO daily Patient started on Spironolactone 25 mg PO BID Stressed to patient the need to follow up with clinic. Monitor blood pressure DISPO: Plan to discharge in the morning. Patient to follow up with [facility] and GI clinic. Case discussed with Dr. Leydi Ford
--- NOTE | 2017-09-12 18:28 | PCM.PROC ---
<Cirilo Ford - Last Filed: 09/12/17 18:25> Procedures Attestation:: I certify that I have explained the specified Operation(s) or Procedure(s), risks, benefits and reasonable alternatives to the Patient and/or other person responsible. The opportunity was given to ask questions and all questions answered - Paracentesis Consent Obtained: verbal consent (Explained risks and benefits of procedure to patient. Risks including but not limited to infection, bleeding, damage to blood vessels and surrounding structures ie intestines. ) Time Out Performed: Yes Indication: Ascites (Removed 4.5 liters of straw colored fluid.) Procedure: therapeutic paracentesis Location: [facility] Local Anesthetic Used: lidocaine 1% <Flaco Forrest - Last Filed: 09/12/17 19:11> Attending/Attestation - Attestation I have personally seen and examined this patient.: Yes I have fully participated in the care of the patient.: Yes I have reviewed all pertinent clinical information, including history, physical exam and plan: Yes Notes (Text): 09/12/17 19:10 I supervised and participated in this procedure. There were no complications and the the patient tolerated the procedure well. Continue Albumin transfusion after ascitic fluid removal. 09/12/17 19:11
[2017-09-13 06:43] LABS: BASO % 0.6 % (0.0-2.0); EOS # 0.2 K/uL (0.0-0.7); EOS % 2.9 % (0.0-4.0); HEMOGLOBIN 10.4 g/dL (12.0-18.0); LYMPH # 1.5 K/uL (1.0-4.3); LYMPH % 28.6 % (20.0-40.0); MEAN CELL VOLUME 87.7 fL (80.0-94.0); MEAN CORPUSCULAR HEMOGLOBIN 29.4 pg (27.0-31.0); MEAN CORPUSCULAR HGB CONC 33.6 g/dL (33.0-37.0); MEAN PLATELET VOLUME 9.5 fL (7.2-11.7); MONO # 0.6 K/uL (0.0-0.8); NEUT % 55.9 % (50.0-75.0); NRBC % 0.1 % (0.0-2.0); RBC 3.54 Mil/uL (4.40-5.90); RED CELL DISTRIBUTION WIDTH 15.1 % (11.5-14.5); WHITE BLOOD COUNT 5.4 K/uL (4.8-10.8)
[2017-09-13 07:14] LABS: ALBUMIN 3.3 g/dL (3.5-5.0); ALT/SGPT 25 U/L (21-72); AST/SGOT 41 U/L (17-59); BLOOD UREA NITROGEN 15 mg/dL (9-20); CALCIUM 8.7 mg/dl (8.6-10.4); GFR AFRICAN-AMERICAN > 60; GFR NON-AFRICAN AMERICAN > 60
[2017-09-13 07:44] VITALS: RESP 22; TEMP 98.2; O2SAT 99
--- NOTE | 2017-09-13 09:16 | CP.PCM.PN ---
Subjective - Date & Time of Evaluation Date of Evaluation: 09/13/17 Time of Evaluation: 09:00 - Subjective Subjective: Medical Attending Note: Patient seen this morning with at bedside. Patient denies headache, denies chills, denies chest pain, denies nausea, denies abdominal pain, denies cough, denies constipation, denies edema. Patient had 4.5 Liters of Ascitic fluid yesterday followed by repletion of albumin. Patient reports he has maintained sobreity for 7 months now. Discussed with nurse Escalona this morning, will order for 2 more doses of Albumin this morning and repeat CBC. Patient and are from [facility]. Patient had attempted to establish care at the [facility] but was unable to. We will refer patient to the [facility], [address] [place] [address] phone number: [phone] upon discharge to establish care. Objective - Vital Signs/Intake and Output Vital Signs (last 24 hours): Temp Pulse Resp BP Pulse Ox 98.2 F 60 22 95/61 L 99 09/13/17 07:43 09/13/17 07:43 09/13/17 07:43 09/13/17 07:43 09/13/17 08:27 Intake and Output: 09/13/17 09/13/17 06:59 18:59 Intake Total 60 Output Total 400 Balance -340 - Medications Medications: Current Medications Albumin Human (Albumin Human 25% (12.5 Gm/50 Ml)) 12.5 gm IV Q1H HEIDI Stop: 09/13/17 10:16 Furosemide (Lasix) 20 mg PO DAILY [facility] Pneumococcal Polyvalent Vaccine (Pneumovax 23 Vaccine) 0.5 ml IM .ONCE ONE Stop: 09/15/17 10:01 Spironolactone (Aldactone) 25 mg PO BID HEIDI - Labs Labs: 09/13/17 06:37 09/13/17 06:37 PT 11.5 SECONDS (9.7-12.2) 09/12/17 12:47 INR 1.0 09/12/17 12:47 APTT 42 SECONDS (21-34) H 09/12/17 12:47 - Constitutional Appears: Non-toxic, No Acute Distress - Head Exam Head Exam: NORMAL INSPECTION - Eye Exam Eye Exam: EOMI - ENT Exam ENT Exam: Mucous Membranes Moist - Respiratory Exam Respiratory Exam: Clear to Ausculation Bilateral, NORMAL BREATHING PATTERN. absent: Rales, Rhonchi, Wheezes - Cardiovascular Exam Cardiovascular Exam: REGULAR RHYTHM, +S1, +S2 - GI/Abdominal Exam GI & Abdominal Exam: Soft, Hernia (umbilical, reducible, incarcerated), Normal Bowel Sounds. absent: Distended, Firm, Guarding, Tenderness, Rebound Additional comments: Dressing over LLQ: clean/dry/intact - Extremities Exam Extremities Exam: absent: Pedal Edema, Tenderness - Neurological Exam Neurological Exam: Alert, Awake, Oriented x3 - Skin Skin Exam: Dry, Intact, Normal Color, Warm Assessment and Plan (1) Ascites due to alcoholic cirrhosis Assessment & Plan: Patient underwent paracentesis on 09/12/17. Patient reports he is feeling better. Patient underwent Albumin repletion afterwards. Patient has maintain sobriety for 7 months now. Will provide scripts for Lasix and Aldactone to prevent recurrent ascites Will hold starting propranolol, usually given for prevention esophageal varcies given he is borderline hypotension; upon f/u in the clinic will determine to start. Status: Acute (2) Hepatitis C Status: Chronic (3) Prophylactic measure Assessment & Plan: Chemical anticoagulation held secondary to thrombocytopenia Status: Acute
[2017-09-13] MEDS ORDERED: Pneumococcal 23-Valent Vaccine IM ONE ×2 (10:00)
[2017-09-13] MEDS ORDERED: Influenza Vaccine 60 mcg/0.5 mL SYR (4YR UP) IM ONE (10:00)
[2017-09-13] MEDS: Albumin Human 25% (12.5 gm/50 ml) IV SCH ×2 (10:09→11:14)
[2017-09-13 10:19] VITALS: BP 98/59; PULSE 62
--- NOTE | 2017-09-13 10:24 | CP.PCM.DIS ---
<Kirill Danielle - Last Filed: 09/13/17 11:47> Provider - Provider Date of Admission: 09/12/17 13:29 Attending physician: Brianna Anaya DO Time Spent in preparation of Discharge (in minutes): 33 Diagnosis - Discharge Diagnosis (1) Ascites due to alcoholic cirrhosis Status: Resolved (2) Abdominal pain Status: Resolved (3) Hepatitis C Status: Chronic Hospital Course - Lab Results Lab Results: Most Recent Lab Values WBC 5.4 K/uL (4.8-10.8) 09/13/17 06:37 RBC 3.54 Mil/uL (4.40-5.90) L 09/13/17 06:37 Hgb 10.4 g/dL (12.0-18.0) L 09/13/17 06:37 Hct 31.0 % (35.0-51.0) L 09/13/17 06:37 MCV 87.7 fL (80.0-94.0) 09/13/17 06:37 MCH 29.4 pg (27.0-31.0) 09/13/17 06:37 MCHC 33.6 g/dL (33.0-37.0) 09/13/17 06:37 RDW 15.1 % (11.5-14.5) H 09/13/17 06:37 Plt Count 119 K/uL (130-400) L D 09/13/17 06:37 MPV 9.5 fL (7.2-11.7) 09/13/17 06:37 Neut % (Auto) 55.9 % (50.0-75.0) 09/13/17 06:37 Lymph % (Auto) 28.6 % (20.0-40.0) 09/13/17 06:37 Trimble % (Auto) 12.0 % (0.0-10.0) H 09/13/17 06:37 Eos % (Auto) 2.9 % (0.0-4.0) 09/13/17 06:37 Baso % (Auto) 0.6 % (0.0-2.0) 09/13/17 06:37 Neut # (Auto) 3.0 K/uL (1.8-7.0) 09/13/17 06:37 Lymph # (Auto) 1.5 K/uL (1.0-4.3) 09/13/17 06:37 Trimble # (Auto) 0.6 K/uL (0.0-0.8) 09/13/17 06:37 Eos # (Auto) 0.2 K/uL (0.0-0.7) 09/13/17 06:37 Baso # (Auto) 0.0 K/uL (0.0-0.2) 09/13/17 06:37 PT 11.5 SECONDS (9.7-12.2) 09/12/17 12:47 INR 1.0 09/12/17 12:47 APTT 42 SECONDS (21-34) H 09/12/17 12:47 Sodium 146 mmol/L (132-148) 09/13/17 06:37 Potassium 3.7 mmol/L (3.6-5.2) 09/13/17 06:37 Chloride 111 mmol/L (98-107) H 09/13/17 06:37 Carbon Dioxide 23 mmol/L (22-30) 09/13/17 06:37 Anion Gap 16 (10-20) 09/13/17 06:37 BUN 15 mg/dL (9-20) 09/13/17 06:37 Creatinine 0.8 mg/dL (0.8-1.5) 09/13/17 06:37 Est GFR ( Amer) > 60 09/13/17 06:37 Est GFR (Non-Af Amer) > 60 09/13/17 06:37 Random Glucose 86 mg/dL (75-110) 09/13/17 06:37 Calcium 8.7 mg/dl (8.6-10.4) 09/13/17 06:37 Total Bilirubin 0.5 mg/dL (0.2-1.3) 09/13/17 06:37 AST 41 U/L (17-59) 09/13/17 06:37 ALT 25 U/L (21-72) 09/13/17 06:37 Alkaline Phosphatase 108 U/L (38-126) 09/13/17 06:37 Total Protein 6.5 g/dL (6.3-8.3) 09/13/17 06:37 Albumin 3.3 g/dL (3.5-5.0) L 09/13/17 06:37 Globulin 3.2 gm/dL (2.2-3.9) 09/13/17 06:37 Albumin/Globulin Ratio 1.0 (1.0-2.1) 09/13/17 06:37 Lipase 109 U/L (23-300) 09/12/17 12:47 Urine Color April (YELLOW) 09/12/17 12:47 Urine Clarity Hazy (Clear) 09/12/17 12:47 Urine pH 5.0 (5.0-8.0) 09/12/17 12:47 Ur Specific Stratford 1.023 (1.003-1.030) 09/12/17 12:47 Urine Protein Negative mg/dL (NEGATIVE) 09/12/17 12:47 Urine Glucose (UA) Normal mg/dL (Normal) 09/12/17 12:47 Urine Ketones Trace mg/dL (NEGATIVE) 09/12/17 12:47 Urine Blood Negative (NEGATIVE) 09/12/17 12:47 Urine Nitrate Negative (NEGATIVE) 09/12/17 12:47 Urine Bilirubin Negative (NEGATIVE) 09/12/17 12:47 Urine Urobilinogen 2.0 mg/dL (0.2-1.0) 09/12/17 12:47 Ur Leukocyte Esterase Neg Jan/uL (Negative) 09/12/17 12:47 Urine WBC (Auto) 5 /hpf (0-5) 09/12/17 12:47 Urine RBC (Auto) 1 /hpf (0-3) 09/12/17 12:47 Ur Squamous Epith Cells 1 /hpf (0-5) 09/12/17 12:47 Calcium Oxalate Crystal Occ /hpf (<OCC) H 09/12/17 12:47 - Hospital Course Hospital Course: On admission: Patient is a 57 year old with a past medical history of Hep C, alcoholic cirrhosis, recurrent ascites and umbilical hernia. Patient is presenting to the emergency room with worsening abdominal pain. The patient reports that his abdomen has been getting larger and larger since his last paracentesis. He was admitted for abdominal pain and distention on 06/13/17. He had his first paracentesis done at that time and 5.5 liters of straw colored fluid was drained. He states that this pain is similar to last time. He came in today because he had an episode of non-bilious/non-bloody vomiting last night and this morning. He has been unable to eat since last night. He was instructed to follow up with the clinic down stairs but states he was unable to get in contact with them. He took his discharge medications but stopped because he did not have any more refills and no PMD. Denies fevers, chills, diarrhea, constipation, chest pain, shortness of breath. Medical Course: Patient was admitted 09/12 with abdominal pain symptoms secondary to ascites . Patient had a paracentesis performed on 09/12 bedside for which approx 4.5 liters of fluid was removed. Patient's albumin repleted (x4). Patient's was borerline hypotensive through the night however remained clinically stable and asymptomatic. Patient had another 2 units of albumin repleted on 09/13. Patient continued Lasix and Aldactone. Propranolol not to be started at this time in light of borderline hypotension. Patient to follow up in outpatient clinic for further management Patient counseled on the importance of following up at the [facility]. Patient given contact information for the [facility] in [place] as well as the clinic in [place]. Patient also counseled on continued alcohol sobriety as well. Patient to follow up with GI clinic as well following. Patient is medically stable for discharge home. Patient to follow up with the the [facility] within the next week for continuing care. Patient provided with the contact information for the [place] [facility]. Patient is aware of the [facility] located at [facility]. Patient to continue Aldactone 25 mg PO daily and Lasix 20 mg PO daily. Patient counseled on continuing alcohol sobriety. If symptoms return, go to the emergency room. Instructions explained to patient who is aware. This is a brief summary of events. For a complete course, refer to the medical record. Discharge Exam - Head Exam Head Exam: NORMAL INSPECTION - Eye Exam Eye Exam: EOMI, Normal appearance, PERRL Pupil Exam: NORMAL ACCOMODATION Additional comments: cachectic - Neck Exam Neck exam: Full Rom - Respiratory Exam Respiratory Exam: NORMAL BREATHING PATTERN - Cardiovascular Exam Cardiovascular Exam: +S1, +S2 - GI/Abdominal Exam GI & Abdominal Exam: Normal Bowel Sounds, Soft. absent: Distended, Firm, Guarding Additional comments: dressing noted on left lower quadrant region, c/d/i - Back Exam Back exam: FULL ROM - Neurological Exam Neurological exam: Alert, Oriented x3 - Psychiatric Exam Psychiatric exam: Normal Affect, Normal Mood - Skin Skin Exam: Dry, Intact, Warm Discharge Plan - Discharge Medications Prescriptions: Furosemide [Lasix] 20 mg PO DAILY #30 tab Spironolactone [Aldactone] 25 mg PO BID #60 tab - Follow Up Plan Condition: STABLE Disposition: HOME/ ROUTINE Instructions: Cirrhosis (DC), Furosemide, Spironolactone Additional Instructions: Patient is medically stable for discharge home. Patient to follow up with the the [facility] within the next week for continuing care. Patient provided with the contact information for the [facility]. Patient is aware of the [facility] located at [facility]. Patient to continue Aldactone 25 mg PO daily and Lasix 20 mg PO daily. Patient counseled on continuing alcohol sobriety. If symptoms return, go to the emergency room. Instructions explained to patient who is aware. Referrals: Edwardo Espinosa DO [[facility]] - Clinic,Med Surg [Non-Staff] - Geri Cash MD [Staff Provider] - <Brianna Anaya V - Last Filed: 09/13/17 12:06> Provider - Provider Date of Admission: 09/12/17 13:29 Attending physician: Brianna Anaya DO Diagnosis - Discharge Diagnosis (1) Ascites due to alcoholic cirrhosis Status: Resolved (2) Hepatitis C Status: Chronic (3) Prophylactic measure Status: Acute Hospital Course - Lab Results Lab Results: Most Recent Lab Values WBC 5.0 K/uL (4.8-10.8) 09/13/17 10:52 RBC 3.56 Mil/uL (4.40-5.90) L 09/13/17 10:52 Hgb 10.4 g/dL (12.0-18.0) L 09/13/17 10:52 Hct 31.2 % (35.0-51.0) L 09/13/17 10:52 MCV 87.4 fL (80.0-94.0) 09/13/17 10:52 MCH 29.2 pg (27.0-31.0) 09/13/17 10:52 MCHC 33.4 g/dL (33.0-37.0) 09/13/17 10:52 RDW 15.1 % (11.5-14.5) H 09/13/17 10:52 Plt Count 120 K/uL (130-400) L 09/13/17 10:52 MPV 9.7 fL (7.2-11.7) 09/13/17 10:52 Neut % (Auto) 55.9 % (50.0-75.0) 09/13/17 06:37 Lymph % (Auto) 28.6 % (20.0-40.0) 09/13/17 06:37 Trimble % (Auto) 12.0 % (0.0-10.0) H 09/13/17 06:37 Eos % (Auto) 2.9 % (0.0-4.0) 09/13/17 06:37 Baso % (Auto) 0.6 % (0.0-2.0) 09/13/17 06:37 Neut # (Auto) 3.0 K/uL (1.8-7.0) 09/13/17 06:37 Lymph # (Auto) 1.5 K/uL (1.0-4.3) 09/13/17 06:37 Trimble # (Auto) 0.6 K/uL (0.0-0.8) 09/13/17 06:37 Eos # (Auto) 0.2 K/uL (0.0-0.7) 09/13/17 06:37 Baso # (Auto) 0.0 K/uL (0.0-0.2) 09/13/17 06:37 PT 11.5 SECONDS (9.7-12.2) 09/12/17 12:47 INR 1.0 09/12/17 12:47 APTT 42 SECONDS (21-34) H 09/12/17 12:47 Sodium 146 mmol/L (132-148) 09/13/17 06:37 Potassium 3.7 mmol/L (3.6-5.2) 09/13/17 06:37 Chloride 111 mmol/L (98-107) H 09/13/17 06:37 Carbon Dioxide 23 mmol/L (22-30) 09/13/17 06:37 Anion Gap 16 (10-20) 09/13/17 06:37 BUN 15 mg/dL (9-20) 09/13/17 06:37 Creatinine 0.8 mg/dL (0.8-1.5) 09/13/17 06:37 Est GFR ( Amer) > 60 09/13/17 06:37 Est GFR (Non-Af Amer) > 60 09/13/17 06:37 Random Glucose 86 mg/dL (75-110) 09/13/17 06:37 Calcium 8.7 mg/dl (8.6-10.4) 09/13/17 06:37 Total Bilirubin 0.5 mg/dL (0.2-1.3) 09/13/17 06:37 AST 41 U/L (17-59) 09/13/17 06:37 ALT 25 U/L (21-72) 09/13/17 06:37 Alkaline Phosphatase 108 U/L (38-126) 09/13/17 06:37 Total Protein 6.5 g/dL (6.3-8.3) 09/13/17 06:37 Albumin 3.3 g/dL (3.5-5.0) L 09/13/17 06:37 Globulin 3.2 gm/dL (2.2-3.9) 09/13/17 06:37 Albumin/Globulin Ratio 1.0 (1.0-2.1) 09/13/17 06:37 Lipase 109 U/L (23-300) 09/12/17 12:47 Urine Color April (YELLOW) 09/12/17 12:47 Urine Clarity Hazy (Clear) 09/12/17 12:47 Urine pH 5.0 (5.0-8.0) 09/12/17 12:47 Ur Specific Strat[place] 1.023 (1.003-1.030) 09/12/17 12:47 Urine Protein Negative mg/dL (NEGATIVE) 09/12/17 12:47 Urine Glucose (UA) Normal mg/dL (Normal) 09/12/17 12:47 Urine Ketones Trace mg/dL (NEGATIVE) 09/12/17 12:47 Urine Blood Negative (NEGATIVE) 09/12/17 12:47 Urine Nitrate Negative (NEGATIVE) 09/12/17 12:47 Urine Bilirubin Negative (NEGATIVE) 09/12/17 12:47 Urine Urobilinogen 2.0 mg/dL (0.2-1.0) 09/12/17 12:47 Ur Leukocyte Esterase Neg Jan/uL (Negative) 09/12/17 12:47 Urine WBC (Auto) 5 /hpf (0-5) 09/12/17 12:47 Urine RBC (Auto) 1 /hpf (0-3) 09/12/17 12:47 Ur Squamous Epith Cells 1 /hpf (0-5) 09/12/17 12:47 Calcium Oxalate Crystal Occ /hpf (<OCC) H 09/12/17 12:47 Attending/Attestation - Attestation I have personally seen and examined this patient.: Yes I have fully participated in the care of the patient.: Yes I have reviewed all pertinent clinical information, including history, physical exam and plan: Yes Notes (Text): Patient seen, examined and case discussed with medical technologist chemistry. Discussed discharge instructions with patient with at bedside. Recommend to follow-up and establish care at the [facility] in [place]. Maintain sobriety from alcohol. Patient is medically stable for discharge following Albumin repletiong this morning. Patient to be referred to the [facility] in [place] upon discharge to establish care. Address: [facility], [address] [place] [address] phone number: [phone] Patient to be provided scripts for Aldactone and Lasix upon discharge. Prescriptions: 1) Lasix 20mg PO daily 2) Aldactone 25mg PO BID This is a summary of patient's hospitalization. Please see EMR for further detail of records. Discharge Diagnoses: (1) Ascites due to alcoholic cirrhosis Assessment & Plan: Patient underwent paracentesis on 09/12/17. Patient reports he is feeling better. Patient underwent Albumin repletion afterwards. Patient has maintain sobriety for 7 months now. Will provide scripts for Lasix and Aldactone to prevent recurrent ascites upon discharge Will hold starting propranolol, usually given for prevention esophageal varcies given he is borderline hypotension; upon f/u in the clinic will determine to start. Status: Acute (2) Hepatitis C Status: Chronic (3) Prophylactic measure Assessment & Plan: Chemical anticoagulation held secondary to thrombocytopenia Status: Acute
[2017-09-13 10:56] LABS: HEMOGLOBIN 10.4 g/dL (12.0-18.0); MEAN CELL VOLUME 87.4 fL (80.0-94.0); MEAN CORPUSCULAR HEMOGLOBIN 29.2 pg (27.0-31.0); MEAN CORPUSCULAR HGB CONC 33.4 g/dL (33.0-37.0); MEAN PLATELET VOLUME 9.7 fL (7.2-11.7); RBC 3.56 Mil/uL (4.40-5.90); RED CELL DISTRIBUTION WIDTH 15.1 % (11.5-14.5)
[2017-09-15] MEDS ORDERED: Pneumococcal 23-Valent Vaccine IM ONE (10:00)
== END 2017-09-13 13:15 | disposition home or self-care (01) ==
LOC: C.ER 11:22 → C.9E 13:29 → C.3T 13:49
PROVIDERS: ADMIT Internal Medicine; ATTEND Hospitalist
DX: K70.31 Alcoholic cirrhosis of liver with ascites (principal); B19.20 Unspecified viral hepatitis C without hepatic coma; F17.210 Nicotine dependence, cigarettes, uncomplicated; Z23 Encounter for immunization; F12.90 Cannabis use, unspecified, uncomplicated
CPT/HCPCS: 36415; 80053; 81001; 83690; 85025; 85027; 85610; 85730; 90471; 90732; 99284; G0378; P9047

== ENCOUNTER 2018-05-25 09:38 | Emergency (ER) | payer MEDICAID ==
[2018-05-25 09:38] VITALS: BMI 20.2
[2018-05-25 10:03] VITALS: BP 155/83; PULSE 100; RESP 18; TEMP 98; O2SAT 95
--- NOTE | 2018-05-25 11:39 | C.PDOC ---
History Of Present Illness 58 y/o male presents to the ED complaining of chronic leg pain for a long time. He denies recent trauma or fall. Patient denies any numbness, tingling, or extremity weakness. He ambulates using his cane. States that he wants documentation that he is still in pain. No new change in pain. Time Seen by Provider: 05/25/18 10:01 Chief Complaint (Nursing): Lower Extremity Problem/Injury History Per: Patient History/Exam Limitations: no limitations Onset/Duration Of Symptoms: Days Current Symptoms Are (Timing): Still Present Past Medical History Reviewed: Historical Data, Nursing Documentation, Vital Signs Vital Signs: Last Vital Signs Temp 98 F 05/25/18 10:00 Pulse 100 H 05/25/18 10:00 Resp 18 05/25/18 10:00 BP 155/83 H 05/25/18 10:00 Pulse Ox 95 05/25/18 10:00 - Medical History PMH: Gastritis, Hepatitis (C) Denies: HIV - [facility] Procedures DETOXIFICATION SERVICES FOR SUBSTANCE ABUSE TREATMENT (03/20/16) DRAINAGE OF PERITONEAL CAVITY, PERCUTANEOUS APPROACH (06/12/17) INSPECTION OF LOWER INTESTINAL TRACT, ENDO (03/06/17) INSPECTION OF UPPER INTESTINAL TRACT, ENDO (03/06/17) TRANSFUSE NONAUT RED BLOOD CELLS IN PERIPH VEIN, PERC (03/06/17) Family History: States: Unknown Family Hx - Social History Hx Tobacco Use: Yes Hx Alcohol Use: Yes Hx Substance Use: No - Immunization History Hx Tetanus Toxoid Vaccination: Yes Hx Influenza Vaccination: No Hx Pneumococcal Vaccination: No Review Of Systems Except As Marked, All Systems Reviewed And Found Negative. Constitutional: Negative for: Fever Cardiovascular: Negative for: Chest Pain Respiratory: Negative for: Shortness of Breath Musculoskeletal: Positive for: Leg Pain Skin: Negative for: Lesions Neurological: Negative for: Weakness, Numbness, Incoordination Physical Exam - Physical Exam Appears: Non-toxic, No Acute Distress, Other (Thin male) Skin: Warm, Dry, No Rash Head: Atraumatic, Normacephalic Eye(s): bilateral: Normal Inspection, PERRL, EOMI Neck: Normal ROM Chest: Symmetrical Extremity: Normal ROM (with FROM of bilateral lower extremities), No Tenderness, No Calf Tenderness, Capillary Refill (less than 2 sec), No Deformity, No Swelling Pulses: Left Dorsalis Pedis: Normal, Right Dorsalis Pedis: Normal Neurological/Psych: Oriented x3, Normal Motor, Normal Sensation, Other (No focal deficits) Gait: With Assistance (using cane - at baseline) ED Course And Treatment O2 Sat by Pulse Oximetry: 95 (RA) Pulse Ox Interpretation: Normal Medical Decision Making Medical Decision Making: Impression: Chronic leg pain Plan: Patient is medically stable, no new complaints or acute change in pain. He remains ambulatory using his cane. Plan is to d/c home, documentation provided as requested. Disposition - Disposition Referrals: Edwardo Espinosa DO [[facility]] - Disposition: HOME/ ROUTINE Disposition Time: 10:15 Condition: GOOD Additional Instructions: MANAN GALVEZ, thank you for letting us take care of you today. The emergency medical care you received today was directed at your acute symptoms. If you were prescribed any medication, please fill it and take as directed. It may take several days for your symptoms to resolve. Return to the Emergency Department if your symptoms worsen, do not improve, or if you have any other problems. Please contact your doctor or call one of the physicians/clinics you have been referred to that are listed on the Patient Visit Information form that is included in your discharge packet. Bring any paperwork you were given at discharge with you along with any medications you are taking to your follow up visit. Our treatment cannot replace ongoing medical care by a primary care provider outside of the emergency department. Thank you for allowing the [facility] team to be part of your care today. Followup with your primary care doctor this week for further evaluation and further management. Instructions: Chronic Pain (DC) Forms: [employer] (Beninese) - Clinical Impression Clinical Impression: Chronic pain - Scribe Statement The provider has reviewed the documentation as recorded by the Monty Grant Provider Attestation: All medical record entries made by the Monty were at my direction and personally dictated by me. I have reviewed the chart and agree that the record accurately reflects my personal performance of the history, physical exam, medical decision making, and the department course for this patient. I have also personally directed, reviewed, and agree with the discharge instructions and disposition.
== END 2018-05-25 10:24 | disposition home or self-care (01) ==
LOC: C.ER 09:38
DX: G89.29 Other chronic pain (principal); M79.606 Pain in leg, unspecified

== ENCOUNTER 2018-09-05 12:40 | Inpatient (IN) | payer MEDICAID ==
[2018-09-05 12:41] VITALS: BMI 20.2
[2018-09-05] MEDS ORDERED: Sodium Chloride 0.9% 1,000 ML IV ONE (13:13)
--- NOTE | 2018-09-05 13:19 | C.PDOC ---
History Of Present Illness 58 y/o male pt presents to the ER with hx of alcohol, smoking cigarettes and marijuana, liver cirrhosis, malnutrition and wasting syndrome presents to the ER for multiple chronic complaints: leg pain and abdominal pain. Associated sx includes inability to walk and unsteady gait for the leg pain and nausea, vomiting, and constipation for the abdominal pain. As per , pt was vomiting "all day" yesterday and got better when he was given becky-seltzer. Pt's also states that pt does not have an appetite and mostly drinks water and juice. Pt usually drinks 1 pint of vodka a day and his last intake was x2 days ago. Pt also has a hx of an umbilical hernia that remains unrepaired. Time Seen by Provider: 09/05/18 12:53 Chief Complaint (Nursing): Abdominal Pain History Per: Patient History/Exam Limitations: no limitations Onset/Duration Of Symptoms: Days Current Symptoms Are (Timing): Still Present Past Medical History Reviewed: Historical Data, Nursing Documentation, Vital Signs Vital Signs: Last Vital Signs Temp 98.5 F 09/05/18 12:44 Pulse 124 H 09/05/18 12:44 Resp 18 09/05/18 12:44 BP 142/87 09/05/18 12:44 Pulse Ox 100 09/05/18 12:44 - Medical History PMH: Gastritis, Hepatitis (C) - [facility] Procedures DETOXIFICATION SERVICES FOR SUBSTANCE ABUSE TREATMENT (03/20/16) DRAINAGE OF PERITONEAL CAVITY, PERCUTANEOUS APPROACH (06/12/17) INSPECTION OF LOWER INTESTINAL TRACT, ENDO (03/06/17) INSPECTION OF UPPER INTESTINAL TRACT, ENDO (03/06/17) TRANSFUSE NONAUT RED BLOOD CELLS IN PERIPH VEIN, PERC (03/06/17) Family History: States: Unknown Family Hx - Social History Hx Tobacco Use: Yes Hx Alcohol Use: Yes Hx Substance Use: Yes - Immunization History Hx Tetanus Toxoid Vaccination: No Hx Influenza Vaccination: Yes Hx Pneumococcal Vaccination: No Review Of Systems Except As Marked, All Systems Reviewed And Found Negative. Constitutional: Positive for: Other (inability to tolerate PO solid ) Gastrointestinal: Positive for: Nausea, Vomiting, Abdominal Pain, Constipation Neurological: Positive for: Weakness Physical Exam - Physical Exam Appears: Non-toxic, Chronically Ill Skin: Other (dust and olivas) Head: Other (temporal wasting; sunken orbits) Eye(s): bilateral: Normal Inspection Neck: Normal ROM, Supple Cardiovascular: Rhythm Regular Respiratory: Normal Breath Sounds, No Rales, No Rhonchi, No Wheezing Gastrointestinal/Abdominal: Soft, Tenderness (diffuse ), No Distention, No Guarding, No Rebound, Hernia (reducible umbilical hernia ) Neurological/Psych: Oriented x3, Normal Speech, Normal Cognition, Normal Sensation ED Course And Treatment - Laboratory Results Result Diagrams: 09/06/18 07:01 09/06/18 07:01 O2 Sat by Pulse Oximetry: 100 (RA) Pulse Ox Interpretation: Normal - Other Rad Abdomen Obstructive Series X-Ray: Read By Radiologist Interpretation: Accession No. : [id number]. Patient Name / ID : LEONOR HINKLE / [id number]. Exam Date : 09/05/2018 13:24:44 ( Approved ). Study Comment : Sex / Age : M / 58Y. Creator : Martin Ballard MD. Dictator : Martin Ballard MD. Telegraph And Teletype Operator : Manager Cafe : Martin Ballard MD. Approver2 : Report Date : 09/05/2018 16:04:22. My Comment : . Date of service: 09/05/2018. PROCEDURE: Radiographs of the chest and abdomen (obstructive series). HISTORY: abd pain. COMPARISON: No prior. TECHNIQUE: AP radiograph of the chest, with upright and supine radiographs of the abdomen. FINDINGS: CHEST: Lungs: Clear. Cardiovascular: Normal size heart. No pulmonary vascular congestion. No aortic atherosclerotic calcification present. Pleura: No pleural fluid. No pneumothorax. Other findings: None. ABDOMEN AND PELVIS: Bowel: Unremarkable bowel gas pattern. No evidence of mechanical obstruction. Free air: None. Bones: Unremarkable. Other findings: None. IMPRESSION: Unremarkable radiographs of chest and abdomen. No evidence of mechanical bowel obstruction. - CT Scan/US abdomen/pelvis CT Other Rad Studies (CT/US): Read By Radiologist, Radiology Report Reviewed CT/US Interpretation: Accession No. : [id number]. Patient Name / ID : LEONOR HINKLE / [id number]. Exam Date : 09/05/2018 13:39:59 ( Approved ). Study Comment : Sex / Age : M / 58Y. Creator : Jose Alejandro Wade. Dictator : Martin Ballard MD. Telegraph And Teletype Operator : Manager Cafe : Martin Ballard MD. Approver2 : Report Date : 09/05/2018 13:51:05. My Comment : . Date of service: 09/05/2018. PROCEDURE: CT Abdomen and Pelvis without intravenous contrast. HISTORY: abd pain. COMPARISON: 06/12/2017. TECHNIQUE: Without contrast.. Contrast dose: 0. Radiation dose: Total exam DLP = 351.93 mGy-cm. This CT exam was performed using one or more of the following dose re duction techniques: Automated exposure control, adjustment of the mA and/or kV according to patient size, and/or use of iterative reconstruction technique. FINDINGS: LOWER THORAX: Unremarkable. LIVER: Nodular contour consistent with hepatic cirrhosis. No mass. No biliary dilatation. Diffusely diminished attenuation consistent with fatty infiltration. GALLBLADDER AND BILE DUCTS: Cholelithiasis. No mural thickening or pericholecystic fluid. PANCREAS: Unremarkable. No gross lesion or ductal dilatation. SPLEEN: Unremarkable. ADRENALS: Unremarkable. No mass. KIDNEYS AND URETERS: 3 mm nonobstructing calculus mid right kidney. No left renal calculus. No mass or hydronephrosis. VASCULATURE: Unremarkable. No aortic aneurysm. There is atherosclerotic calcification of the abdominal aorta and iliac vessels. BOWEL: Unremarkable. No obstruction. No gross mural thickening. APPENDIX: Unremarkable. Normal appendix. PERITONEUM: No ascites. Umbilical hernia containing only mesenteric fat. No pneumoperitoneum. LYMPH NODES: Unremarkable. No enlarged lymph nodes. BLADDER: Nondistended. REPRODUCTIVE: Normal prostate. BONES: No acute fracture. Grade 1 retrolisthesis at L5-S1, degenerative in origin. OTHER FINDINGS: None. IMPRESSION: Hepatic cirrhosis. Fatty infiltration of the liver. Umbilical hernia containing only mesenteric fat. No ascites. Cholelithiasis without evidence of cholecystitis. Nevertheless, in the appropriate clinical setting consider further evaluation with ultrasound examination of the right upper quadrant. Medical Decision Making Medical Decision Making: plans: -- chem labs -- blood work -- CT abd and pelvis -- CXR -- obstructive series Disposition - Disposition Disposition: HOSPITALIZED Disposition Time: 14:43 Condition: GOOD - Clinical Impression Clinical Impression: Abdominal pain, Umbilical hernia, Liver cirrhosis, Weakness generalized, Wasting syndrome - Scribe Statement The provider has reviewed the documentation as recorded by the Scribe Pineda Do Provider Attestation: All medical record entries made by the Scribe were at my direction and personally dictated by me. I have reviewed the chart and agree that the record accurately reflects my personal performance of the history, physical exam, medical decision making, and the department course for this patient. I have also personally directed, reviewed, and agree with the discharge instructions and disposition. Decision To Admit - Pt Status Changed To: Hospital Disposition Of: Inpatient - Admit Certification Admit to Inpatient:: After my assessment, the patient will require hospitalizati on for at least two midnights. This is because of the severity of symptoms shown, intensity of services needed, and/or the medical risk in this patient being treated as an outpatient. - InPatient: Physician Admission Certification:: critically ill patient - . Bed Request Type: Regular Admitting Physician: Dick Whitehead Patient Diagnosis: Abdominal pain, Umbilical hernia, Liver cirrhosis, Weakness generalized, Wasting syndrome
[2018-09-05 13:28] LABS: BASO % 0.2 % (0.0-2.0); EOS # 0.1 K/uL (0.0-0.7); EOS % 0.7 % (0.0-4.0); LYMPH # 0.9 K/uL (1.0-4.3); LYMPH % 11.3 % (20.0-40.0); MEAN CORPUSCULAR HEMOGLOBIN 35.1 pg (27.0-31.0); MEAN CORPUSCULAR HGB CONC 34.3 g/dL (33.0-37.0); MONO # 0.8 K/uL (0.0-0.8); MONO % 10.1 % (0.0-10.0); NEUT # 5.9 K/uL (1.8-7.0); NEUT % 77.7 % (50.0-75.0); RBC 3.14 Mil/uL (4.40-5.90); RED CELL DISTRIBUTION WIDTH 18.5 % (11.5-14.5); WHITE BLOOD COUNT 7.6 K/uL (4.8-10.8)
[2018-09-05 13:32] LABS: MEAN CELL VOLUME 102.5 fL (80.0-94.0)
[2018-09-05 13:40] LABS: ALB/GLOB RATIO 1.2 (1.0-2.1); ALT/SGPT 56 U/L (21-72); AST/SGOT 134 U/L (17-59); BLOOD UREA NITROGEN 48 mg/dL (9-20); CALCIUM 9.9 mg/dl (8.6-10.4); GFR NON-AFRICAN AMERICAN 44; LIPASE 282 U/L (23-300)
[2018-09-05 13:52] LABS: B-TYPE NATRIURETIC PEPTIDE 292 pg/mL (0-900)
--- NOTE | 2018-09-05 14:14 | CT ---
Date of service: 09/05/2018 PROCEDURE: CT Abdomen and Pelvis without intravenous contrast HISTORY: abd pain COMPARISON: 06/12/2017 TECHNIQUE: Without contrast.. Contrast dose: 0 Radiation dose: Total exam DLP = 351.93 mGy-cm. This CT exam was performed using one or more of the following dose reduction techniques: Automated exposure control, adjustment of the mA and/or kV according to patient size, and/or use of iterative reconstruction technique. FINDINGS: LOWER THORAX: Unremarkable. LIVER: Nodular contour consistent with hepatic cirrhosis. No mass. No biliary dilatation. Diffusely diminished attenuation consistent with fatty infiltration. GALLBLADDER AND BILE DUCTS: Cholelithiasis. No mural thickening or pericholecystic fluid. PANCREAS: Unremarkable. No gross lesion or ductal dilatation. SPLEEN: Unremarkable. ADRENALS: Unremarkable. No mass. KIDNEYS AND URETERS: 3 mm nonobstructing calculus mid right kidney. No left renal calculus. No mass or hydronephrosis. VASCULATURE: Unremarkable. No aortic aneurysm. There is atherosclerotic calcification of the abdominal aorta and iliac vessels. BOWEL: Unremarkable. No obstruction. No gross mural thickening. APPENDIX: Unremarkable. Normal appendix. PERITONEUM: No ascites. Umbilical hernia containing only mesenteric fat. No pneumoperitoneum. LYMPH NODES: Unremarkable. No enlarged lymph nodes. BLADDER: Nondistended REPRODUCTIVE: Normal prostate BONES: No acute fracture. Grade 1 retrolisthesis at L5-S1, degenerative in origin. OTHER FINDINGS: None. IMPRESSION: Hepatic cirrhosis. Fatty infiltration of the liver. Umbilical hernia containing only mesenteric fat. No ascites. Cholelithiasis without evidence of cholecystitis. Nevertheless, in the appropriate clinical setting consider further evaluation with ultrasound examination of the right upper quadrant.
[2018-09-05 15:02] VITALS: RESP 20
--- NOTE | 2018-09-05 16:03 | CP.PCM.HP ---
<Nadege Mohr - Last Filed: 09/05/18 19:24> History of Present Illness - History of Present Illness History of Present Illness: History and Physical - Hospitalist service Patient is a 58 year old male with past medical history of hepatitis C, liver cirrhosis, alcohol abuse who presented to the emergency department for multiple episodes of vomiting that started 3 days ago. Patient states that his last drink was 3 days ago. He drinks 1 pint of vodka daily for the last couple of months. He states that he has never had withdrawal seizures. Patient also reports also having periumbilical abdominal pain and chronic bilateral lower extremity pain that has been worse. Patient states that for the last 6 months it has been increasingly difficult to ambulate. His states that he is more off balance now. He normally ambulates with a cane. Allergies: NKDA Medications: Denies Medical History: Liver cirrhosis, Hepatitis C, Alcohol abuse Surgical History: Denies Social History: Smokes 1ppd, drinks 1 pint of vodka daily, smokes cannabinoids Family History: Mother - Thyroid cancer; Father - CVA at age 81, Sister - DM Present on Admission - Present on Admission Any Indicators Present on Admission: No Past Patient History - Infectious Disease Hx of Infectious Diseases: None - Past Medical History & Family History Past Medical History?: Yes - Past Social History Smoking Status: Heavy Smoker > 10 Cigarettes Daily - CARDIAC Hx Cardiac Disorders: No - PULMONARY Hx Respiratory Disorders: No - NEUROLOGICAL Hx Neurological Disorder: No - HEENT Hx HEENT Problems: No - ENDOCRINE/METABOLIC Hx Endocrine Disorders: No - HEMATOLOGICAL/ONCOLOGICAL Hx Human Immunodeficiency Virus (HIV): No - INTEGUMENTARY Hx Dermatological Problems: No - MUSCULOSKELETAL/RHEUMATOLOGICAL Hx Falls: Yes - GASTROINTESTINAL Hx Gastritis: Yes - GENITOURINARY/GYNECOLOGICAL Hx Genitourinary Disorders: No - PSYCHIATRIC Hx Substance Use: Yes - SURGICAL HISTORY Hx Surgeries: Yes Other/Comment: colonoscopy - ANESTHESIA Hx Anesthesia: Yes Hx Anesthesia Reactions: No Meds Allergies/Adverse Reactions: Allergies Allergy/AdvReac Type Severity Reaction Status Date / Time No Known Allergies Allergy Verified 09/05/18 12:49 Physical Exam - Constitutional Appears: Non-toxic, No Acute Distress - Head Exam Head Exam: ATRAUMATIC, NORMAL INSPECTION, NORMOCEPHALIC - Eye Exam Eye Exam: EOMI, Normal appearance - ENT Exam ENT Exam: Mucous Membranes Moist - Respiratory Exam Respiratory Exam: Clear to Auscultation Bilateral, NORMAL BREATHING PATTERN. absent: Rales, Rhonchi, Wheezes - Cardiovascular Exam Cardiovascular Exam: REGULAR RHYTHM, +S1, +S2 - GI/Abdominal Exam GI & Abdominal Exam: Hernia, Soft. absent: Distended, Guarding, Rebound, Rigid - Extremities Exam Extremities exam: Positive for: normal inspection, pedal pulses present. Negative for: calf tenderness - Neurological Exam Neurological exam: Alert, Oriented x3 - Psychiatric Exam Psychiatric exam: Normal Affect, Normal Mood - Skin Skin Exam: Dry, Normal Color, Warm Results - Vital Signs Recent Vital Signs: Last Vital Signs Temp 98.6 F 09/05/18 15:01 Pulse 79 09/05/18 15:01 Resp 20 09/05/18 15:01 BP 114/67 09/05/18 15:01 Pulse Ox 100 09/05/18 15:01 - Labs Result Diagrams: 09/05/18 13:23 09/05/18 13:23 Labs: Laboratory Results - last 24 hr 09/05/18 09/05/18 09/05/18 13:23 13:23 13:23 WBC 7.6 RBC 3.14 L Hgb 11.0 L Hct 32.1 L MCV 102.5 H D MCH 35.1 H MCHC 34.3 RDW 18.5 H Plt Count 37 L D MPV 8.0 Neut % (Auto) 77.7 H Lymph % (Auto) 11.3 L [place] % (Auto) 10.1 H Eos % (Auto) 0.7 Baso % (Auto) 0.2 Neut # (Auto) 5.9 Lymph # (Auto) 0.9 L [place] # (Auto) 0.8 Eos # (Auto) 0.1 Baso # (Auto) 0.0 Differential Comment Sodium 134 Potassium 4.0 Chloride 87 L D Carbon Dioxide 32 H Anion Gap 19 BUN 48 H Creatinine 1.6 H Est GFR ( Amer) 54 Est GFR (Non-Af Amer) 44 Random Glucose 132 H D Calcium 9.9 Total Bilirubin 1.7 H AST 134 H D ALT 56 Alkaline Phosphatase 203 H D Ammonia < 9 L Troponin I < 0.0120 NT-Pro-B Natriuret Pep 292 Total Protein 9.0 H Albumin 5.0 Globulin 4.1 H Albumin/Globulin Ratio 1.2 Lipase 282 Assessment & Plan - Assessment and Plan (Free Text) Assessment: Abdominal Pain, Hx of umbilical hernia -Stable, afebrile -Advance diet as tolerated -Continue IVF hydration -Corporate Safety Coordinator referral for poor PO intake -CT abd/pelvis showed Hepatic cirrhosis. Fatty infiltration of the liver. Umbilical hernia containing only mesenteric fat. No ascites. Cholelithiasis without evidence of cholecystitis. Nevertheless, in the appropriate clinical setting consider further evaluation with ultrasound examination of the right upper quadrant -Obstructive series showed Unremarkable radiographs of chest and abdomen. No evidence of mechanical bowel obstruction (see full report) Acute Kidney Injury -BUN/Cr 48/1.6 -Continue IVF hydration -Monitor serial CMPs -F/U urine sodium and urine creatinine History of alcohol abuse -Banana bag ordered for 1 bag, NS to follow -Ativan 1mg Q4H prn -PO Multivitamins, Folic acid, Thiamine daily -F/U urine drug screen -CIWA protocol, seizure precautions, aspiration precautions Unsteady gait -Physical therapy ordered GI/DVT ppx: -Protonix 40mg IVp daily -SCDs Plan discussed with Dr Richelle Mohr DO PGY-2 <Martin Peoples H - Last Filed: 09/06/18 09:15> Results - Vital Signs Recent Vital Signs: Last Vital Signs Temp 98.6 F 09/06/18 08:40 Pulse 75 09/06/18 08:40 Resp 20 09/06/18 08:40 BP 108/68 09/06/18 08:40 Pulse Ox 97 09/06/18 08:40 - Labs Result Diagrams: 09/06/18 07:01 09/06/18 07:01 Labs: Laboratory Results - last 24 hr 09/05/18 09/05/18 09/05/18 13:23 13:23 13:23 WBC 7.6 RBC 3.14 L Hgb 11.0 L Hct 32.1 L MCV 102.5 H D MCH 35.1 H MCHC 34.3 RDW 18.5 H Plt Count 37 L D MPV 8.0 Neut % (Auto) 77.7 H Lymph % (Auto) 11.3 L [place] % (Auto) 10.1 H Eos % (Auto) 0.7 Baso % (Auto) 0.2 Neut # (Auto) 5.9 Lymph # (Auto) 0.9 L [place] # (Auto) 0.8 Eos # (Auto) 0.1 Baso # (Auto) 0.0 Differential Comment Sodium 134 Potassium 4.0 Chloride 87 L D Carbon Dioxide 32 H Anion Gap 19 BUN 48 H Creatinine 1.6 H Est GFR ( Amer) 54 Est GFR (Non-Af Amer) 44 Random Glucose 132 H D Calcium 9.9 Total Bilirubin 1.7 H AST 134 H D ALT 56 Alkaline Phosphatase 203 H D Ammonia < 9 L Troponin I < 0.0120 NT-Pro-B Natriuret Pep 292 Total Protein 9.0 H Albumin 5.0 Globulin 4.1 H Albumin/Globulin Ratio 1.2 Lipase 282 Urine Color Urine Clarity Urine pH Ur Specific [place] Urine Protein Urine Glucose (UA) Urine Ketones Urine Blood Urine Nitrate Urine Bilirubin Urine Urobilinogen Ur Leukocyte Esterase Urine WBC (Auto) Urine RBC (Auto) Ur Squamous Epith Cells Urine Bacteria Hyaline Casts Ur Random Creatinine Ur Random Sodium Urine Opiates Screen Urine Methadone Screen Ur Barbiturates Screen Ur Phencyclidine Scrn Ur Amphetamines Screen U Benzodiazepines Scrn U Oth Cocaine Metabols U Cannabinoids Screen 09/05/18 09/05/18 09/05/18 15:52 22:28 22:28 WBC RBC Hgb Hct MCV MCH MCHC RDW Plt Count MPV Neut % (Auto) Lymph % (Auto) [place] % (Auto) Eos % (Auto) Baso % (Auto) Neut # (Auto) Lymph # (Auto) [place] # (Auto) Eos # (Auto) Baso # (Auto) Differential Comment Sodium Potassium Chloride Carbon Dioxide Anion Gap BUN Creatinine Est GFR ( Amer) Est GFR (Non-Af Amer) Random Glucose Calcium Total Bilirubin AST ALT Alkaline Phosphatase Ammonia Troponin I NT-Pro-B Natriuret Pep Total Protein Albumin Globulin Albumin/Globulin Ratio Lipase Urine Color April Urine Clarity Hazy Urine pH 5.0 Ur Specific [place] 1.023 Urine Protein 2+ H Urine Glucose (UA) Normal Urine Ketones 1+ H Urine Blood 1+ H Urine Nitrate Negative Urine Bilirubin 1+ H Urine Urobilinogen 4.0 Ur Leukocyte Esterase 1+ H Urine WBC (Auto) 13 H Urine RBC (Auto) 5 H Ur Squamous Epith Cells 3 Urine Bacteria Rare Hyaline Casts >20 H Ur Random Creatinine 261.0 Ur Random Sodium 7 Urine Opiates Screen Negative Urine Methadone Screen Negative Ur Barbiturates Screen Negative Ur Phencyclidine Scrn Negative Ur Amphetamines Screen Negative U Benzodiazepines Scrn Negative U Oth Cocaine Metabols Negative U Cannabinoids Screen Positive H 09/06/18 09/06/18 07:01 07:01 WBC 5.2 RBC 2.93 L Hgb 10.2 L Hct 30.0 L MCV 102.2 H MCH 34.8 H MCHC 34.0 RDW 18.1 H Plt Count 31 L MPV 8.4 Neut % (Auto) 63.7 Lymph % (Auto) 21.1 [place] % (Auto) 11.7 H Eos % (Auto) 3.0 Baso % (Auto) 0.5 Neut # (Auto) 3.3 Lymph # (Auto) 1.1 [place] # (Auto) 0.6 Eos # (Auto) 0.2 Baso # (Auto) 0.0 Differential Comment Sodium 131 L Potassium 3.7 Chloride 90 L Carbon Dioxide 33 H Anion Gap 11 BUN 51 H Creatinine 1.5 Est GFR ( Amer) 58 Est GFR (Non-Af Amer) 48 Random Glucose 95 D Calcium 9.2 Total Bilirubin 1.3 AST 140 H ALT 47 Alkaline Phosphatase 175 H Ammonia Troponin I NT-Pro-B Natriuret Pep Total Protein 7.8 Albumin 4.4 Globulin 3.4 Albumin/Globulin Ratio 1.3 Lipase Urine Color Urine Clarity Urine pH Ur Specific [place] Urine Protein Urine Glucose (UA) Urine Ketones Urine Blood Urine Nitrate Urine Bilirubin Urine Urobilinogen Ur Leukocyte Esterase Urine WBC (Auto) Urine RBC (Auto) Ur Squamous Epith Cells Urine Bacteria Hyaline Casts Ur Random Creatinine Ur Random Sodium Urine Opiates Screen Urine Methadone Screen Ur Barbiturates Screen Ur Phencyclidine Scrn Ur Amphetamines Screen U Benzodiazepines Scrn U Oth Cocaine Metabols U Cannabinoids Screen Attending/Attestation - Attestation I have personally seen and examined this patient.: Yes I have fully participated in the care of the patient.: Yes I have reviewed all pertinent clinical information: Yes Notes (Text): 09/06/18 09:13 Medical attending: Patient was seen and examined by me with the resident last night. Patient was with family member at bedside Reviewed the above note and plan with the resident and agree I met the patient back in 2015 and at that time had repeated ascities requiring paracentesis. Currently no ascities. He is here with ongoing weakness and parathesia in lower extremities. He looks malnoursihed. He was drinking again he says - last drink was 3 days prior. He will be on bannanbag, IVF, and then oral thiamine, folic acid, VALENTINAI Martin Peoples
[2018-09-05 16:05] LABS: SQUAMOUS EPITHIAL 3 /hpf (0-5); URINE BACTERIA RARE (<OCC); URINE BILIRUBIN 1+ (NEGATIVE); URINE BLOOD 1+ (NEGATIVE); URINE CLARITY Hazy (Clear); URINE COLOR Amber (YELLOW); URINE GLUCOSE (UA) NORMAL (Normal); URINE HYALINE CAST >20 /lpf (0-2); URINE LEUKOCYTE ESTERASE 1+ Leu/uL (Negative); URINE PROTEIN 2+ mg/dL (NEGATIVE)
--- NOTE | 2018-09-05 16:08 | RAD ---
Date of service: 09/05/2018 PROCEDURE: Radiographs of the chest and abdomen (obstructive series) HISTORY: abd pain COMPARISON: No prior. TECHNIQUE: AP radiograph of the chest, with upright and supine radiographs of the abdomen. FINDINGS: CHEST: Lungs: Clear. Cardiovascular: Normal size heart. No pulmonary vascular congestion. No aortic atherosclerotic calcification present Pleura: No pleural fluid. No pneumothorax. Other findings: None. ABDOMEN AND PELVIS: Bowel: Unremarkable bowel gas pattern. No evidence of mechanical obstruction. Free air: None. Bones: Unremarkable. Other findings: None. IMPRESSION: Unremarkable radiographs of chest and abdomen. No evidence of mechanical bowel obstruction.
[2018-09-05] MEDS ORDERED: Folic Acid 1 MG, Thiamine 100 MG, Multivitamin (MVI) 10 ML in Dextrose 5% In Water 1,00... IV SCH (16:45)
[2018-09-05 22:51] LABS: BARBITURATES, UR NEGATIVE (NEGATIVE); BENZODIAZEPINES, UR NEGATIVE (NEGATIVE); OPIATES, UR NEGATIVE (NEGATIVE); PHENCYCLIDINE, UR NEGATIVE (NEGATIVE)
[2018-09-06 08:26] LABS: ALB/GLOB RATIO 1.3 (1.0-2.1); ALBUMIN 4.4 g/dL (3.5-5.0); CALCIUM 9.2 mg/dl (8.6-10.4)
[2018-09-06 08:28] LABS: BASO % 0.5 % (0.0-2.0); EOS # 0.2 K/uL (0.0-0.7); HEMOGLOBIN 10.2 g/dL (12.0-18.0); LYMPH # 1.1 K/uL (1.0-4.3); LYMPH % 21.1 % (20.0-40.0); MEAN CELL VOLUME 102.2 fL (80.0-94.0); MEAN CORPUSCULAR HEMOGLOBIN 34.8 pg (27.0-31.0); MEAN PLATELET VOLUME 8.4 fL (7.2-11.7); MONO # 0.6 K/uL (0.0-0.8); MONO % 11.7 % (0.0-10.0); NEUT # 3.3 K/uL (1.8-7.0); NEUT % 63.7 % (50.0-75.0); NRBC % 0.1 % (0.0-2.0); RBC 2.93 Mil/uL (4.40-5.90); RED CELL DISTRIBUTION WIDTH 18.1 % (11.5-14.5); WHITE BLOOD COUNT 5.2 K/uL (4.8-10.8)
[2018-09-06] MEDS: Sodium Chloride 0.9% 1,000 ML IV SCH ×2 (08:30→18:10)
--- NOTE | 2018-09-06 09:19 | CP.PCM.PN ---
Subjective - Date & Time of Evaluation Date of Evaluation: 09/06/18 Time of Evaluation: 08:50 - Subjective Subjective: Patient was seen and examined by me He was not sleeping well due to parathesia in lower extremities he said. Mike these parathesia are secondary to malnutrion from the patient alway drinking alcohol and not eating. Per famiily member last night the patient's last observed good meal was in July and he has been drinking since then. He tolerated his diet and I encouraged him to try to eat as much as possible as he did not eat everything. No alcohol withdrawal symptoms when I asked him. Objective - Vital Signs/Intake and Output Vital Signs (last 24 hours): Temp Pulse Resp BP Pulse Ox 98.6 F 75 20 108/68 97 09/06/18 08:40 09/06/18 08:40 09/06/18 08:40 09/06/18 08:40 09/06/18 08:40 Intake and Output: 09/06/18 09/06/18 06:59 18:59 Intake Total 750 Balance 750 - Medications Medications: Current Medications Folic Acid (Folic Acid) 1 mg PO DAILY HEIDI Sodium Chloride (Sodium Chloride 0.9%) 1,000 mls @ 100 mls/hr IV .Q10H HEIDI Lorazepam (Ativan) 1 mg IVP Q4H PRN PRN Reason: Symptoms of alcohol withdrawl Multivitamins (Hexavitamin) 1 tab PO DAILY HEIDI Pantoprazole Sodium (Protonix Inj) 40 mg IVP DAILY HEIDI Thiamine HCl (Vitamin B1 Tab) 100 mg PO DAILY HEIDI - Labs Labs: 09/06/18 07:01 09/06/18 07:01 - Constitutional Appears: No Acute Distress, Unkempt, Older Than Stated Age, Cachectic, Chronically Ill - Head Exam Head Exam: NORMAL INSPECTION - Eye Exam Eye Exam: EOMI, Normal appearance - Respiratory Exam Respiratory Exam: Decreased Breath Sounds, Clear to Ausculation Bilateral - Cardiovascular Exam Cardiovascular Exam: REGULAR RHYTHM - GI/Abdominal Exam GI & Abdominal Exam: Soft, Normal Bowel Sounds. absent: Firm, Guarding, Rigid - Neurological Exam Neurological Exam: Alert, Awake, Oriented x3 - Psychiatric Exam Psychiatric exam: Depressed, Flat Affect - Skin Skin Exam: Pallor, Warm Assessment and Plan - Assessment and Plan (Free Text) Assessment: Abdominal Pain, Hx of umbilical hernia 09/06: Today minimal pain. No ascities. He has an umbilical hernia, no guarding and no rebound. Monitor. He also tolerated diet today, encoureaged him to eat as much as possible Had bananbag yesterday, today continue with IVF Also on PO Multivitamins, Folic acid, Thiamine daily -CT abd/pelvis showed Hepatic cirrhosis. Fatty infiltration of the liver. Umbilical hernia containing only mesenteric fat. No ascites. Cholelithiasis without evidence of cholecystitis. Nevertheless, in the appropriate clinical setting consider further evaluation with ultrasound examination of the right upper quadrant -Obstructive series showed Unremarkable radiographs of chest and abdomen. No evidence of mechanical bowel obstruction (see full report) Acute Kidney Injury 09/06: Creatine is a little decreased today but continue IVF History of alcohol abuse 09/06: So far no withdrawl symptoms. PRN ativan as needed. On IVF Banana bag ordered for 1 bag, NS to follow -CIWA protocol, seizure precautions, aspiration precautions Unsteady gait -Physical therapy ordered GI/DVT ppx: -Protonix 40mg IVp daily -SCDs
[2018-09-06] MEDS: Multiple Vitamins Tab PO SCH (09:57)
[2018-09-07] MEDS: Sodium Chloride 0.9% 1,000 ML IV SCH (04:55)
[2018-09-07 06:45] LABS: ALB/GLOB RATIO 1.4 (1.0-2.1); ALT/SGPT 52 U/L (21-72); AST/SGOT 176 U/L (17-59); BLOOD UREA NITROGEN 34 mg/dL (9-20); CALCIUM 8.5 mg/dl (8.6-10.4); GFR NON-AFRICAN AMERICAN > 60
[2018-09-07 07:39] VITALS: BP 124/70; PULSE 75; TEMP 98.8; O2SAT 97
[2018-09-07 07:49] LABS: FOLATE 14.7 ng/mL
--- NOTE | 2018-09-07 08:34 | CP.PCM.PN ---
Subjective - Date & Time of Evaluation Date of Evaluation: 09/07/18 Time of Evaluation: 08:33 - Subjective Subjective: PGY-1 Medicine Progress Note for Dr. Whitehead Objective - Vital Signs/Intake and Output Vital Signs (last 24 hours): Temp Pulse Resp BP Pulse Ox 98.8 F 75 20 124/70 97 09/07/18 07:00 09/07/18 07:00 09/07/18 07:00 09/07/18 07:00 09/07/18 07:00 Intake and Output: 09/07/18 09/07/18 06:59 18:59 Intake Total 1300 Balance 1300 - Medications Medications: Current Medications Folic Acid (Folic Acid) 1 mg PO DAILY [facility] Last Admin: 09/06/18 09:57 Dose: 1 mg Sodium Chloride (Sodium Chloride 0.9%) 1,000 mls @ 100 mls/hr IV .Q10H [facility] Last Admin: 09/07/18 04:55 Dose: Not Given Lorazepam (Ativan) 1 mg IVP Q4H PRN PRN Reason: Symptoms of alcohol withdrawl Multivitamins (Hexavitamin) 1 tab PO DAILY [facility] Last Admin: 09/06/18 09:57 Dose: 1 tab Pantoprazole Sodium (Protonix Inj) 40 mg IVP DAILY [facility] Last Admin: 09/06/18 09:57 Dose: 40 mg Thiamine HCl (Vitamin B1 Tab) 100 mg PO DAILY [facility] Last Admin: 09/06/18 09:57 Dose: 100 mg - Labs Labs: 09/06/18 07:01 09/07/18 06:22
[2018-09-07] MEDS: Multiple Vitamins Tab PO SCH (09:53)
[2018-09-07 11:47] LABS: BASO % 0.4 % (0.0-2.0); EOS # 0.1 K/uL (0.0-0.7); EOS % 3.2 % (0.0-4.0); HEMOGLOBIN 8.8 g/dL (12.0-18.0); LYMPH # 0.5 K/uL (1.0-4.3); LYMPH % 14.1 % (20.0-40.0); MEAN CORPUSCULAR HEMOGLOBIN 34.7 pg (27.0-31.0); MEAN CORPUSCULAR HGB CONC 33.2 g/dL (33.0-37.0); MEAN PLATELET VOLUME 8.7 fL (7.2-11.7); MONO # 0.5 K/uL (0.0-0.8); MONO % 14.6 % (0.0-10.0); NEUT # 2.5 K/uL (1.8-7.0); NEUT % 67.7 % (50.0-75.0); NRBC % 0.1 % (0.0-2.0); RBC 2.54 Mil/uL (4.40-5.90); WHITE BLOOD COUNT 3.6 K/uL (4.8-10.8)
[2018-09-07 11:50] LABS: MEAN CELL VOLUME 104.7 fL (80.0-94.0)
--- NOTE | 2018-09-07 13:52 | CP.PCM.DIS ---
Provider - Provider Date of Admission: 09/05/18 14:50 Attending physician: Dick Whitehead MD Time Spent in preparation of Discharge (in minutes): 40 Diagnosis - Discharge Diagnosis (1) Abdominal pain Status: Resolved (2) Alcohol abuse Status: Chronic Priority: High (3) Hepatitis C infection Status: Chronic Priority: High (4) Liver cirrhosis Status: Chronic Priority: High (5) Umbilical hernia Status: Chronic Priority: Low Hospital Course - Lab Results Lab Results: Most Recent Lab Values WBC 3.6 K/uL (4.8-10.8) L 09/07/18 11:22 RBC 2.54 Mil/uL (4.40-5.90) L 09/07/18 11:22 Hgb 8.8 g/dL (12.0-18.0) L 09/07/18 11:22 Hct 26.6 % (35.0-51.0) L 09/07/18 11:22 MCV 104.7 fL (80.0-94.0) H D 09/07/18 11:22 MCH 34.7 pg (27.0-31.0) H 09/07/18 11:22 MCHC 33.2 g/dL (33.0-37.0) 09/07/18 11:22 RDW 18.0 % (11.5-14.5) H 09/07/18 11:22 Plt Count 39 K/uL (130-400) L 09/07/18 11:22 MPV 8.7 fL (7.2-11.7) 09/07/18 11:22 Neut % (Auto) 67.7 % (50.0-75.0) 09/07/18 11:22 Lymph % (Auto) 14.1 % (20.0-40.0) L 09/07/18 11:22 Gilliam % (Auto) 14.6 % (0.0-10.0) H 09/07/18 11:22 Eos % (Auto) 3.2 % (0.0-4.0) 09/07/18 11:22 Baso % (Auto) 0.4 % (0.0-2.0) 09/07/18 11:22 Neut # (Auto) 2.5 K/uL (1.8-7.0) 09/07/18 11:22 Lymph # (Auto) 0.5 K/uL (1.0-4.3) L 09/07/18 11:22 Gilliam # (Auto) 0.5 K/uL (0.0-0.8) 09/07/18 11:22 Eos # (Auto) 0.1 K/uL (0.0-0.7) 09/07/18 11:22 Baso # (Auto) 0.0 K/uL (0.0-0.2) 09/07/18 11:22 Differential Comment 09/07/18 11:22 Sodium 134 mmol/L (132-148) 09/07/18 06:22 Potassium 3.9 mmol/L (3.6-5.2) 09/07/18 06:22 Chloride 100 mmol/L (98-107) 09/07/18 06:22 Carbon Dioxide 29 mmol/L (22-30) 09/07/18 06:22 Anion Gap 9 (10-20) L 09/07/18 06:22 BUN 34 mg/dL (9-20) H 09/07/18 06:22 Creatinine 1.0 mg/dL (0.8-1.5) 09/07/18 06:22 Est GFR ( Amer) > 60 09/07/18 06:22 Est GFR (Non-Af Amer) > 60 09/07/18 06:22 Random Glucose 91 mg/dL (75-110) 09/07/18 06:22 Calcium 8.5 mg/dl (8.6-10.4) L 09/07/18 06:22 Total Bilirubin 1.1 mg/dL (0.2-1.3) 09/07/18 06:22 AST 176 U/L (17-59) H D 09/07/18 06:22 ALT 52 U/L (21-72) 09/07/18 06:22 Alkaline Phosphatase 154 U/L (38-126) H 09/07/18 06:22 Ammonia < 9 umol/L (9-33) L 09/05/18 13:23 Troponin I < 0.0120 ng/mL (0.00-0.120) 09/05/18 13:23 NT-Pro-B Natriuret Pep 292 pg/mL (0-900) 09/05/18 13:23 Total Protein 7.0 g/dL (6.3-8.3) 09/07/18 06:22 Albumin 4.0 g/dL (3.5-5.0) 09/07/18 06:22 Globulin 3.0 gm/dL (2.2-3.9) 09/07/18 06:22 Albumin/Globulin Ratio 1.4 (1.0-2.1) 09/07/18 06:22 Lipase 282 U/L (23-300) 09/05/18 13:23 Vitamin B12 392 pg/mL (239-931) 09/07/18 06:22 Folate 14.7 ng/mL 09/07/18 06:22 Urine Color April (YELLOW) 09/05/18 15:52 Urine Clarity Hazy (Clear) 09/05/18 15:52 Urine pH 5.0 (5.0-8.0) 09/05/18 15:52 Ur Specific [place] 1.023 (1.003-1.030) 09/05/18 15:52 Urine Protein 2+ mg/dL (NEGATIVE) H 09/05/18 15:52 Urine Glucose (UA) Normal mg/dL (Normal) 09/05/18 15:52 Urine Ketones 1+ mg/dL (NEGATIVE) H 09/05/18 15:52 Urine Blood 1+ (NEGATIVE) H 09/05/18 15:52 Urine Nitrate Negative (NEGATIVE) 09/05/18 15:52 Urine Bilirubin 1+ (NEGATIVE) H 09/05/18 15:52 Urine Urobilinogen 4.0 mg/dL (0.2-1.0) 09/05/18 15:52 Ur Leukocyte Esterase 1+ Jan/uL (Negative) H 09/05/18 15:52 Urine WBC (Auto) 13 /hpf (0-5) H 09/05/18 15:52 Urine RBC (Auto) 5 /hpf (0-3) H 09/05/18 15:52 Ur Squamous Epith Cells 3 /hpf (0-5) 09/05/18 15:52 Urine Bacteria Rare (<OCC) 09/05/18 15:52 Hyaline Casts >20 /lpf (0-2) H 09/05/18 15:52 Ur Random Creatinine 261.0 mg/dL 09/05/18 22:28 Ur Random Sodium 7 mmol/L 09/05/18 22:28 Urine Opiates Screen Negative (NEGATIVE) 09/05/18 22:28 Urine Methadone Screen Negative (NEGATIVE) 09/05/18 22:28 Ur Barbiturates Screen Negative (NEGATIVE) 09/05/18 22:28 Ur Phencyclidine Scrn Negative (NEGATIVE) 09/05/18 22:28 Ur Amphetamines Screen Negative (NEGATIVE) 09/05/18 22:28 U Benzodiazepines Scrn Negative (NEGATIVE) 09/05/18 22:28 U Oth Cocaine Metabols Negative (NEGATIVE) 09/05/18 22:28 U Cannabinoids Screen Positive (NEGATIVE) H 09/05/18 22:28 - Hospital Course Hospital Course: HPI: Patient is a 58 year old male with past medical history of hepatitis C, liver cirrhosis, alcohol abuse who presented to the emergency department for multiple episodes of vomiting that started 3 days ago. Patient states that his last drink was 3 days ago. He drinks 1 pint of vodka daily for the last couple of months. He states that he has never had withdrawal seizures. Patient also reports also having periumbilical abdominal pain and chronic bilateral lower extremity pain that has been worse. Patient states that for the last 6 months it has been increasingly difficult to ambulate. His states that he is more off balance now. He normally ambulates with a cane. During course of admission: CT abdomen and pelvis obtained demonstrated liver cirrhosis. Umbilical hernia containing only mesenteric fat. No ascites. Cholelithiasis was noted without evidence of cholecystitis. Obstructive series showed Unremarkable radiographs of chest and abdomen, with no evidence of mechanical bowel obstruction. Patient was placed on CIWA protocol, given history of alcohol abuse, and given Ativan 1 mg q4 hours as needed. Patient was also given IV fluids, thiamine, multivitamin, folate for replenishment. Patient tolerated diet well with no active vomiting. Withdrawal signs and sympt oms were kept under control, and patient remained clinically stable with improvement of abdominal pain. Patient is medically stable for discharge to home, as per Dr. Whitehead. Patient to take medications as currently prescribed. Patient is instructed to follow up with his primary health provider at the [facility] [place]. Patient has also been instructed to follow up with the liver clinic at [facility] for further monitoring and continued care of chronic Hepatitis C and liver cirrhosis. If symptoms worsen or recur, please return to ED immediately. - Date & Time of H&P Date of H&P: 09/07/18 Time of H&P: 13:51 Discharge Exam - Head Exam Head Exam: ATRAUMATIC, NORMAL INSPECTION, NORMOCEPHALIC - Eye Exam Eye Exam: EOMI, Normal appearance, PERRL. absent: Scleral icterus Pupil Exam: NORMAL ACCOMODATION - ENT Exam ENT Exam: Mucous Membranes Moist, Normal Exam - Neck Exam Neck exam: Full Rom, Normal Inspection - Respiratory Exam Respiratory Exam: Clear to PA & Lateral, NORMAL BREATHING PATTERN, UNREMARKABLE. absent: Accessory Muscle Use, Rales, Rhonchi, Wheezes, Respiratory Distress, Stridor - Cardiovascular Exam Cardiovascular Exam: REGULAR RHYTHM, +S1, +S2 - GI/Abdominal Exam GI & Abdominal Exam: Hernia (umbilical), Normal Bowel Sounds, Soft, Tenderness (mild TTP epigastric, RUQ, periumbilical region), Unremarkable. absent: Distended, Firm, Guarding, Rebound, Rigid - Extremities Exam Extremities exam: normal capillary refill, normal inspection, pedal pulses present - Back Exam Back exam: NORMAL INSPECTION - Neurological Exam Neurological exam: Alert, CN II-XII Intact, Normal Gait, Oriented x3 - Skin Skin Exam: Dry, Intact, Normal Color, Warm Discharge Plan - Discharge Medications Prescriptions: Folic Acid 1 mg PO DAILY #30 tab Multivitamins [Hexavitamin] 1 tab PO DAILY #30 tab Thiamine [Vitamin B1 Tab] 100 mg PO DAILY #30 tab - Follow Up Plan Condition: GOOD Disposition: HOME/ ROUTINE Instructions: Acute Abdomen (Belly Pain), Adult (DC), Cirrhosis (DC), Generalized Weakness (DC), Alcohol Withdrawal (DC), Alcohol Abuse and Alcoholism (DC) Additional Instructions: Patient is medically stable for discharge to home, as per Dr. Whitehead. Patient to take medications as currently prescribed. Patient is instructed to follow up with his primary health provider at the [facility] [place]. Patient has also been instructed to follow up with the liver clinic at [facility] for further monitoring and continued care of chronic Hepatitis C and liver cirrhosis. If symptoms worsen or recur, please return to ED immediately. Referrals: [facility] [Outside] Edwardo Espinosa DO [[facility]] -
== END 2018-09-07 13:24 | disposition home or self-care (01) | DRG 566 ==
LOC: C.ER 12:40 → C.9E 14:50 → C.6T 16:52
PROVIDERS: ADMIT Internal Medicine; ATTEND Internal Medicine
DX: E46 Unspecified protein-calorie malnutrition (principal); N17.9 Acute kidney failure, unspecified; K74.60 Unspecified cirrhosis of liver; B18.2 Chronic viral hepatitis C; K42.9 Umbilical hernia without obstruction or gangrene; F10.10 Alcohol abuse, uncomplicated; F17.210 Nicotine dependence, cigarettes, uncomplicated; K76.0 Fatty (change of) liver, not elsewhere classified; K80.20 Calculus of gallbladder without cholecystitis without obstruction; Z68.21 Body mass index [BMI] 21.0-21.9, adult; K29.70 Gastritis, unspecified, without bleeding; M79.604 Pain in right leg; M79.605 Pain in left leg; Z80.8 Family history of malignant neoplasm of other organs or systems; Z83.3 Family history of diabetes mellitus

== ENCOUNTER 2018-10-17 20:18 | Emergency (ER) | payer MEDICAID ==
[2018-10-17 20:22] VITALS: BMI 26.6
[2018-10-17 20:32] VITALS: PULSE 112; O2SAT 96
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
[2018-10-17 20:55] VITALS: RESP 20
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
== END 2018-10-17 20:55 | disposition home or self-care (01) ==
LOC: C.ER 20:18
DX: S01.01XA Laceration without foreign body of scalp, initial encounter (principal); Y08.89XA Assault by other specified means, initial encounter; F10.129 Alcohol abuse with intoxication, unspecified; Y90.9 Presence of alcohol in blood, level not specified